=== PATIENT | female | born 1965 | race Caucasian/White ===

== ENCOUNTER 2017-08-20 10:11 | Emergency (ER) | payer MEDICAID, OTHER ==
[~2017-08-20] VITALS: Ht 172.7 cm; Wt 59.0 kg
[~2017-08-20 10:11] MED LIST changes: -CEPH250C37 PO
--- NOTE | 2017-08-20 11:04 | RADIOLOGY IMAGING REPORT ---
FACILITY: [facility] - [place], [place] PATIENT NAME: Cookie Kate : 1965 MR: [id number] V: [id number] EXAM DATE: ORDERING PHYSICIAN: JAKOB FULTON TECHNOLOGIST: Location: [facility] - [place] Patient: Cookie Kate : 1965 Visit/Account:[id number] Date of Sevice: 08/20/2017 Exam type: HAND COMPLETE RIGHT History: Right hand laceration, lateral palm Comparison: None. Findings: Bandaging material projects over the lateral aspect of the right palm. Otherwise no underlying radio paque soft tissue foreign body is seen. There is no evidence of acute fracture or dislocation involv ing the right hand. IMPRESSION: 1. No evidence of acute fracture-dislocation or radiopaque soft tissue foreign body involving the ri ght hand. Report Dictated By: Mandy Horn MD at 08/20/2017 10:58 AM Report E-Signed By: Mandy Horn MD at 08/20/2017 11:00 AM WSN:[id number]
[2017-08-20] MEDS ORDERED: CEPH250C37 PO (11:44)
--- NOTE | 2017-08-20 11:44 | ER Report ---
History and Physical Time Seen By MD: 10:05 Hx. of Stated Complaint: HAD BEER THIS AM, CUTTING POTATOES AND CUT RIGHT HAND. (JAKOB FULTON MD) HPI/ROS CHIEF COMPLAINT: Laceration left palm HISTORY OF PRESENT ILLNESS: 52-year-old female here for left palmar laceration, occurred just prior to arrival, patient reports she was cooking while drinking alcohol and is left-handed she immediately placed a rag over it and came in. Bleeding stopped prior to arrival. Denies motor deficits or sensation problems since the laceration. Denies other concerns or complaints today. This was not a purposeful self-inflicted injury REVIEW OF SYSTEMS: Respiratory: No cough, no dyspnea. Cardiovascular: No chest pain, no palpitations. Gastrointestinal: No vomiting, no abdominal pain. Musculoskeletal: No back pain. (JAKOB FULTON MD) Allergies: Coded Allergies: No Known Drug Allergies (Unverified , 08/20/17) Home Meds Active Scripts Cephalexin (KEFLEX) 250 Mg Capsule, 250 MG PO Q6H for 5 Days, #20 CAP Prov:JAKOB FULTON MD 08/20/17 Discontinued Reported Medications Olanzapine (ZYPREXA) 10 Mg Tablet, 10 MG PO QHS 07/16/17 Olanzapine (ZYPREXA) 5 Mg Tablet, 5 MG PO Q6H Y for AGITATION/PSYCHOSIS TAKE NEEDED EVERY SIX HOURS FOR AGITATION OR PSYCHOSIS 07/16/17 Nicotine (NICOTROL) 10 Mg/Inh Ctr, 10 MG INH Q2H 07/16/17 Multivits,Th W-Fe,Other Min (THEREMS-M) 1 Each Tablet, 1 EACH PO QDAY 07/16/17 Hx Smoking: Yes Smoking Status: Current: Every Day Smoker, Heavy Tobacco Smoker Exposure to Second Hand Smoke?: No Hx Substance Use Disorder: No Hx Alcohol Use: No (JAKOB FULTON MD) Constitutional Vital Sign - Last 24 Hours 08/20/17 08/20/17 10:12 12:23 Temp 98.3 Pulse 89 126 Resp 18 B/P (MAP) 129/85 113/81 (92) Pulse Ox 94 91 O2 Delivery Room Air Room Air (DEXTER GRAJEDA) Physical Exam General Appearance: The patient is alert, has no immediate need for airway protection and no signs of toxicity. Appears mildly intoxicated Eyes: Pupils equal and round no pallor or injection. ENT, Mouth: Mucous membranes are moist. Respiratory: There are no retractions, lungs are clear to auscultation. Cardiovascular: Regular rate and rhythm. No murmurs gallops or rubs Gastrointestinal: Abdomen is soft and non tender, no masses, bowel sounds normal. Neurological: Normal gross neuro exam, normal neuro exam right hand Skin: 5 cm laceration to right palm overlying the thenar eminence. Wound explored no foreign body identified. No bone visible. No tendon lacerations visible. No large nerve lacerations visible. Depth is approximately 0.5 cm Musculoskeletal: Neck is supple non tender. Extremities are nontender, nonswollen and have full range of motion. No edema DIFFERENTIAL DIAGNOSIS: After history and physical exam differential diagnosis was considered for laceration, foreign body (JAKOB FULTON MD) Medical Decision Making ED Course/Re-evaluation ED Course Local anesthesia 1% lidocaine with epinephrine 5 mL infiltrated locally into existing wound on right hand. Prior to irrigation and cleansing with Hibiclens by forestry aid technician Kirstie. Laceration repair by mid-level provider: Dexter Grajeda [see procedure note for details] Decision to Disposition Date: Aug 20, 2017 Decision to Disposition Time: 11:41 (JAKOB FULTON MD) Re-evaluation Procedure: Laceration repair. Verbal consent was obtained from the patient. The 5 cm laceration on the palmar aspect of the right hand was anesthetized in the usual fashion. The wound was scrubbed, draped and explored to its base with a gloved finger. There were no deep structures involved. No tendon injury was identified. The wound was repaired with 9 simple interrupted sutures using 4-0 Prolene. The wound repair was simple. The procedure was performed by myself. (DEXTER GRAJEDA) Depart Departure Latest Vital Signs Vital Signs Date Time Temp Pulse Resp B/P (MAP) Pulse Ox O2 Delivery O2 Flow Rate FiO2 08/20/17 12:23 126 113/81 (92) 91 Room Air 08/20/17 10:12 98.3 18 (DEXTER GRAJEDA) Impression: Primary Impression: Laceration of right palm Condition: Improved Disposition: HOME OR SELF-CARE New Scripts Cephalexin (KEFLEX) 250 Mg Capsule 250 MG PO Q6H for 5 Days, #20 CAP Prov: JAKOB FULTON MD 1/4/18 Patient Instructions: Laceration (ED) Additional Instructions: Keep wound dry for 48 hours. Follow up with your primary care provider in the next 7-10 days to have sutures removed. Monitor for signs of infection; redness, swelling, heat, discharge, increasing pain or red streaking. Take Tylenol or Ibuprofen as needed for pain. Return to the ER with any concerns. You may change dressing as needed. Problem Qualifiers Primary Impression: Laceration of right palm Encounter type: initial encounter Qualified Codes: S61.411A - Laceration without foreign body of right hand, initial encounter JAKOB FULTON MD Aug 20, 2017 11:44 DEXTER GRAJEDA Aug 20, 2017 12:14
[2017-08-20 12:23] VITALS: BP 113/81
== END 2017-08-20 12:26 | disposition home or self-care (01) ==
LOC: ER 10:19
DX: S61.411A Laceration without foreign body of right hand, initial encounter (principal)
CPT/HCPCS: 99283

== ENCOUNTER → 2017-08-20 | Outpatient (CLI) | payer MEDICAID ==
[~2017-08-20] MED LIST: CEPH250C37 PO; MULT-859 PO; NIC10R INH; OLAN10TA21 PO; OLAN5TAB25 PO; [UNRECOGNIZED DRUG - CODE] PO
== END ==
LOC: AMB 09:52
PROVIDERS: ATTEND Nurse Practitioner
DX: S61.011A Laceration without foreign body of right thumb without damage to nail, initial encounter (principal); R44.0 Auditory hallucinations
CPT/HCPCS: A0425; A0429

== ENCOUNTER 2017-09-12 12:47 | Emergency (ER) | payer MEDICAID ==
[~2017-09-12] VITALS: Ht 172.7 cm; Wt 59.0 kg
--- NOTE | 2017-09-12 13:21 | ER Report ---
History and Physical Time Seen By MD: 13:00 Hx. of Stated Complaint: "THE LEFT SIDE OF MY BRAIN IS NOT WORKING" HPI/ROS CHIEF COMPLAINT: Left-sided brain shutdown HISTORY OF PRESENT ILLNESS: Patient is a 52-year-old female who presents to ED via ambulance with concern of left side of her brain being shutdown. Patient states that she has noted a left-sided headache and feels strange in her left brain. She denies any weakness, numbness, tingling, vision changes, nausea, vomiting, head injury. She states that she was under psychiatric care for the past 15 years in [place], [place]. She states that during this time she was prescribed "over the legal limit of medication" and believes this caused "brain damage". She states that she does hear voices but states that she has no suicidal or homicidal ideations. She denies any visual hallucinations. Patient states that she is trying to get back to [place] but is currently staying in a hotel here in [place], [place]. She denies any drug or alcohol use except for the use of marijuana which she didn't use today. She states that she uses daily. She does not like to take any other medications. She denies any chest pain or shortness of breath. She has not noted any neck pain or fever. She states that " Trump and Obama have let her down". REVIEW OF SYSTEMS: Constitutional: No fever, no chills. Eyes: No discharge. ENT: No sore throat. Cardiovascular: No chest pain, no palpitations. Respiratory: No cough, no shortness of breath. Gastrointestinal: No abdominal pain, no vomiting. Genitourinary: No hematuria. Musculoskeletal: No back pain. Skin: No rashes. Neurological: See history of present illness. Allergies: Coded Allergies: No Known Drug Allergies (Unverified , 09/12/17) Home Meds Discontinued Scripts Cephalexin (KEFLEX) 250 Mg Capsule, 250 MG PO Q6H for 5 Days, #20 CAP Prov:JAKOB FULTON MD 08/20/17 Reviewed Nurses Notes: Yes Old Medical Records Reviewed: Yes Hx Smoking: Yes Smoking Status: Current: Every Day Smoker, Heavy Tobacco Smoker Exposure to Second Hand Smoke?: No Hx Substance Use Disorder: No Hx Alcohol Use: No Constitutional Vital Sign - Last 24 Hours 09/12/17 12:54 Temp 97.5 Pulse 96 Resp 18 B/P (MAP) 143/97 Pulse Ox 97 O2 Delivery Room Air Physical Exam General Appearance: The patient is alert, has no immediate need for airway protection and no signs of toxicity. Patient appears to be in no acute distress. She does appear to be slightly anxious. She does have a disheveled appearance. Eyes: Pupils equal and round no pallor or injection. EOMs are full bilaterally. ENT, Mouth: Mucous membranes are moist. Respiratory: There are no retractions, lungs are clear to auscultation. Cardiovascular: Regular rate and rhythm. Gastrointestinal: Abdomen is soft and non tender, no masses, bowel sounds normal. Neurological: Cranial nerves II-12 intact. Normal Romberg. Normal finger to nose test bilaterally. Skin: Warm and dry, no rashes. Musculoskeletal: Neck is supple non tender. Extremities are nontender, nonswollen and have full range of motion. DIFFERENTIAL DIAGNOSIS: After history and physical exam differential diagnosis was considered for headache including but not limited to subarachnoid hemorrhage , migraine headache, tension headache and infectious causes such as meningitis, pharyngitis and sinusitis. Medical Decision Making Data Points Result Diagram: 09/12/17 1333 09/12/17 1333 Laboratory Hematology Test 09/12/17 13:27 09/12/17 13:33 Urine Color Elly Urine Clarity Cloudy Urine pH 6.0 pH (4.8-9.5) Urine Specific [place] 1.023 Urine Protein Negative mg/dL (NEGATIVE) Urine Glucose (UA) Negative mg/dL (NEGATIVE) Urine Ketones Trace mg/dL (NEGATIVE) Urine Blood Negative (NEGATIVE) Urine Nitrite Negative (NEGATIVE) Urine Bilirubin Negative (NEGATIVE) Urine Urobilinogen 2.0 mg/dL (0.2-1.9) Urine Leukocyte Esterase Negative (NEGATIVE) Urine RBC None /HPF (0-2/HPF) Urine WBC 1 /HPF (0-5/HPF) Urine Squamous Epithelial Cells Many /LPF (</=FEW) Urine Amorphous Crystals Few /HPF Urine Bacteria Few /HPF (NONE-FEW) Urine Mucus Few /HPF (NONE-FEW) Urine HCG, Qualitative Negative (NEGATIVE) Urine Opiates Screen Negative Urine Barbiturates Screen Negative Ur Tricyclic Antidepressants Screen Negative Urine Phencyclidine Screen Negative Urine Amphetamines Screen Negative Urine Benzodiazepines Screen Negative Urine Cocaine Screen Negative Urine Cannabinoids Screen Positive Red Blood Count 5.44 M/uL (4.17-5.56) Mean Corpuscular Volume 90.5 fL (80.0-96.0) Mean Corpuscular Hemoglobin 30.1 pg (26.0-33.0) Mean Corpuscular Hemoglobin Concent 33.3 g/dL (32.0-36.0) Red Cell Distribution Width 14.0 % (11.5-14.5) Mean Platelet Volume 9.6 fL (7.2-11.1) Neutrophils (%) (Auto) 49.6 % (39.4-72.5) Lymphocytes (%) (Auto) 40.0 % (17.6-49.6) Monocytes (%) (Auto) 8.0 % (4.1-12.4) Eosinophils (%) (Auto) 0.8 % (0.4-6.7) Basophils (%) (Auto) 1.6 % (0.3-1.4) Nucleated RBC Relative Count (auto) 0.1 /100WBC Neutrophils # (Auto) 3.5 K/uL (2.0-7.4) Lymphocytes # (Auto) 2.8 K/uL (1.3-3.6) Monocytes # (Auto) 0.6 K/uL (0.3-1.0) Eosinophils # (Auto) 0.1 K/uL (0.0-0.5) Basophils # (Auto) 0.1 K/uL (0.0-0.1) Nucleated RBC Absolute Count (auto) 0.00 K/uL Sodium Level 140 mmol/L (137-145) Potassium Level 4.0 mmol/L (3.5-5.0) Chloride Level 103 mmol/L (98-107) Carbon Dioxide Level 27 mmol/L (22-31) Blood Urea Nitrogen 12 mg/dl (7-18) Creatinine 0.70 mg/dl (0.52-1.04) Glomerular Filtration Rate Calc > 60.0 Random Glucose 103 mg/dl (75-110) Calcium Level 9.9 mg/dl (8.4-10.2) Magnesium Level 1.9 mg/dl (1.7-2.2) Total Bilirubin 0.6 mg/dl (0.2-1.3) Aspartate Amino Transf (AST/SGOT) 54 U/L (0-35) Alanine Aminotransferase (ALT/SGPT) 51 U/L (0-56) Alkaline Phosphatase 75 U/L (0-126) Total Protein 7.7 gm/dl (6.3-8.2) Albumin 4.3 g/dl (3.5-5.0) Salicylates Level < 10 mg/L Salicylate Last Dose Date unknown Acetaminophen Level < 10 ug/ml Serum Alcohol < 10 mg/dl Chemistry Test 09/12/17 13:27 09/12/17 13:33 Urine Color Elly Urine Clarity Cloudy Urine pH 6.0 pH (4.8-9.5) Urine Specific [place] 1.023 Urine Protein Negative mg/dL (NEGATIVE) Urine Glucose (UA) Negative mg/dL (NEGATIVE) Urine Ketones Trace mg/dL (NEGATIVE) Urine Blood Negative (NEGATIVE) Urine Nitrite Negative (NEGATIVE) Urine Bilirubin Negative (NEGATIVE) Urine Urobilinogen 2.0 mg/dL (0.2-1.9) Urine Leukocyte Esterase Negative (NEGATIVE) Urine RBC None /HPF (0-2/HPF) Urine WBC 1 /HPF (0-5/HPF) Urine Squamous Epithelial Cells Many /LPF (</=FEW) Urine Amorphous Crystals Few /HPF Urine Bacteria Few /HPF (NONE-FEW) Urine Mucus Few /HPF (NONE-FEW) Urine HCG, Qualitative Negative (NEGATIVE) Urine Opiates Screen Negative Urine Barbiturates Screen Negative Ur Tricyclic Antidepressants Screen Negative Urine Phencyclidine Screen Negative Urine Amphetamines Screen Negative Urine Benzodiazepines Screen Negative Urine Cocaine Screen Negative Urine Cannabinoids Screen Positive White Blood Count 7.0 k/uL (4.5-11.0) Red Blood Count 5.44 M/uL (4.17-5.56) Hemoglobin 16.4 g/dL (12.0-16.0) Hematocrit 49.2 % (34.0-47.0) Mean Corpuscular Volume 90.5 fL (80.0-96.0) Mean Corpuscular Hemoglobin 30.1 pg (26.0-33.0) Mean Corpuscular Hemoglobin Concent 33.3 g/dL (32.0-36.0) Red Cell Distribution Width 14.0 % (11.5-14.5) Platelet Count 285 K/uL (150-450) Mean Platelet Volume 9.6 fL (7.2-11.1) Neutrophils (%) (Auto) 49.6 % (39.4-72.5) Lymphocytes (%) (Auto) 40.0 % (17.6-49.6) Monocytes (%) (Auto) 8.0 % (4.1-12.4) Eosinophils (%) (Auto) 0.8 % (0.4-6.7) Basophils (%) (Auto) 1.6 % (0.3-1.4) Nucleated RBC Relative Count (auto) 0.1 /100WBC Neutrophils # (Auto) 3.5 K/uL (2.0-7.4) Lymphocytes # (Auto) 2.8 K/uL (1.3-3.6) Monocytes # (Auto) 0.6 K/uL (0.3-1.0) Eosinophils # (Auto) 0.1 K/uL (0.0-0.5) Basophils # (Auto) 0.1 K/uL (0.0-0.1) Nucleated RBC Absolute Count (auto) 0.00 K/uL Glomerular Filtration Rate Calc > 60.0 Calcium Level 9.9 mg/dl (8.4-10.2) Magnesium Level 1.9 mg/dl (1.7-2.2) Total Bilirubin 0.6 mg/dl (0.2-1.3) Aspartate Amino Transf (AST/SGOT) 54 U/L (0-35) Alanine Aminotransferase (ALT/SGPT) 51 U/L (0-56) Alkaline Phosphatase 75 U/L (0-126) Total Protein 7.7 gm/dl (6.3-8.2) Albumin 4.3 g/dl (3.5-5.0) Salicylates Level < 10 mg/L Salicylate Last Dose Date unknown Acetaminophen Level < 10 ug/ml Serum Alcohol < 10 mg/dl Toxicology Test 09/12/17 13:27 09/12/17 13:33 Urine Opiates Screen Negative Urine Barbiturates Screen Negative Ur Tricyclic Antidepressants Screen Negative Urine Phencyclidine Screen Negative Urine Amphetamines Screen Negative Urine Benzodiazepines Screen Negative Urine Cocaine Screen Negative Urine Cannabinoids Screen Positive Salicylates Level < 10 mg/L Salicylate Last Dose Date unknown Acetaminophen Level < 10 ug/ml Serum Alcohol < 10 mg/dl Urinalysis Test 09/12/17 13:27 Urine Color Elly Urine Clarity Cloudy Urine pH 6.0 pH (4.8-9.5) Urine Specific [place] 1.023 Urine Protein Negative mg/dL (NEGATIVE) Urine Glucose (UA) Negative mg/dL (NEGATIVE) Urine Ketones Trace mg/dL (NEGATIVE) Urine Blood Negative (NEGATIVE) Urine Nitrite Negative (NEGATIVE) Urine Bilirubin Negative (NEGATIVE) Urine Urobilinogen 2.0 mg/dL (0.2-1.9) Urine Leukocyte Esterase Negative (NEGATIVE) Urine RBC None /HPF (0-2/HPF) Urine WBC 1 /HPF (0-5/HPF) Urine Squamous Epithelial Cells Many /LPF (</=FEW) Urine Amorphous Crystals Few /HPF Urine Bacteria Few /HPF (NONE-FEW) Urine Mucus Few /HPF (NONE-FEW) Urine HCG, Qualitative Negative (NEGATIVE) EKG/Imaging Imaging CT Head: IMPRESSION: Negative age-appropriate noncontrast head CT. Report Dictated By: James Amador MD at 09/12/2017 2:10 PM Report E-Signed By: James Amador MD at 09/12/2017 2:15 PM ED Course/Re-evaluation ED Course Will obtain labs and CT head of patient. Given her medical history and current complaints and exam it is likely that the patient has some untreated schizophrenia. She is refusing treatment at this time. However, she is denying any suicidal or homicidal ideation and does not appear to be a threat to herself or anyone else at this time. 09/12/2017 2:28:29 pm - discussed all labs and CT imaging with patient. Everything appears to be essentially normal. Advised to follow-up with her psychiatrist and primary care provider. Decision to Disposition Date: Sep 12, 2017 Decision to Disposition Time: 14:28 Depart Departure Latest Vital Signs Vital Signs Date Time Temp Pulse Resp B/P (MAP) Pulse Ox O2 Delivery O2 Flow Rate FiO2 09/12/17 12:54 97.5 96 18 143/97 97 Room Air Impression: Primary Impression: Delusional disorder, persecutory type, continuous Condition: Improved Disposition: HOME OR SELF-CARE New Scripts No Active Prescriptions or Reported Meds Additional Instructions: Follow-up with her primary care provider and psychiatrist in the next 2-3 days. If having worsening or concerning symptoms may return to the emergency department. GURJIT BAEZ PA-C Sep 12, 2017 13:21
[2017-09-12 13:42] LABS: PLATELET COUNT, AUTOMATED 285 K/uL (150-450)
--- NOTE | 2017-09-12 14:19 | RADIOLOGY IMAGING REPORT ---
FACILITY: [facility] - [place] PATIENT NAME: Cookie Kate : 1965 MR: [id number] V: [id number] EXAM DATE: ORDERING PHYSICIAN: GURJIT BAEZ TECHNOLOGIST: Location: [facility] Patient: Cookie Kate : 1965 Visit/Account:[id number] Date of Sevice: 09/12/2017 EXAMINATION: CT HEAD WITHOUT CONTRAST COMPARISON: None available HISTORY: Left-sided headache. Confusion. PROCEDURE: Noncontrast CT from the vertex through the skull base. One of the following dose optimizat ion techniques was utilized in the performance of this exam: Automated exposure control; adjustment o f the mA and/or kV according to the patient's size; or use of an iterative reconstruction technique. Specific details can be referenced in the facility's radiology CT exam operational policy. FINDINGS: Brain volume: Age-appropriate volume. Hemorrhage/extra-axial fluid: No intracranial hemorrhage or extra-axial fluid collection. Mass effect/midline shift/edema: None. Ischemia: Shafer-white differentiation is preserved. Ventricles and basal cisterns: Ventricle size is within normal limits. Basal cisterns are open. Posterior fossa: Negative. Vessels: Negative. Calvarium, skull base, and scalp: Negative. Visualized sinuses and orbits: Visualized paranasal sinuses are clear. Visualized globes are unremark able. IMPRESSION: Negative age-appropriate noncontrast head CT. Report Dictated By: James Amador MD at 09/12/2017 2:10 PM Report E-Signed By: James Amador MD at 09/12/2017 2:15 PM WSN:[id number]
[2017-09-12 14:39] VITALS: BP 121/94
== END 2017-09-12 14:43 | disposition home or self-care (01) ==
LOC: ER 12:57
DX: F22 Delusional disorders (principal); F17.200 Nicotine dependence, unspecified, uncomplicated; R51 Headache
CPT/HCPCS: 36415; 70450; 80305; 81001; 81025; 83735; 84443; 85025; 99283; G0480; 80320; 80329; 82040; 82247; 82310; 82374; 82435; 82565; 82947; 84075; 84132; 84155; 84295; 84450; 84460; 84520

== ENCOUNTER → 2017-09-12 | Outpatient (CLI) | payer MEDICAID ==
[~2017-09-12] MED LIST changes: +CEPH250C37 PO
== END ==
LOC: AMB 12:40
PROVIDERS: ATTEND Nurse Practitioner
DX: F41.9 Anxiety disorder, unspecified (principal)
CPT/HCPCS: A0425; A0429

== ENCOUNTER 2017-10-15 20:18 | Emergency (ER) | payer MEDICAID ==
[~2017-10-15] VITALS: Ht 172.7 cm; Wt 63.5 kg
[2017-10-15 20:20] VITALS: BP 132/119
--- NOTE | 2017-10-15 20:22 | ER Report ---
History and Physical Time Seen By MD: 20:21 HPI/ROS CHIEF COMPLAINT: Altered mental status HISTORY OF PRESENT ILLNESS: 52-year-old female brought in by police after she called 911 multiple times this evening. She is going on ranting about the trunk administration is responsible for numerous things. He has a 4-5 page double-sided let her ranting on about the trunk administration and all the things that he's cause. Patient's rambling on about technology. She is very tangential. She was brought in by police and placed on an emergency long term for acute schizophrenia/psychosis/ravi. Her boyfriend called police after they responded multiple times earlier for her 911 calls. She was given a warning not to call. She had a specific problem. The boyfriend reports that she has a plan to commit suicide by hanging herself. Patient's also going on, that there is a metal implant in her head. 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 Patient denies medications, alcohol ingestion or substance abuse. Patient has self-inflicted cigarette marks on her left forearm REVIEW OF SYSTEMS: Respiratory: No cough, no dyspnea. Cardiovascular: No chest pain, no palpitations. Gastrointestinal: No vomiting, no abdominal pain. Musculoskeletal: No back pain. Allergies: Coded Allergies: No Known Drug Allergies (Unverified , 09/12/17) Home Meds No Active Prescriptions or Reported Meds Reviewed Nurses Notes: Yes Old Medical Records Reviewed: Yes Hx Smoking: Yes Smoking Status: Current: Every Day Smoker, Heavy Tobacco Smoker Exposure to Second Hand Smoke?: No Hx Substance Use Disorder: No Hx Alcohol Use: No Constitutional Vital Sign - Last 24 Hours 10/15/17 20:20 Temp 97.9 Pulse 93 Resp 24 B/P (MAP) 132/119 Pulse Ox 96 O2 Delivery Room Air Physical Exam General Appearance: The patient is alert, has no immediate need for airway protection and no current signs of toxicity. Vital signs stable, afebrile, rambling nonsensical tangential verbal expressions and appropriate HEENT: Pupils equal and round no injection. TMs normal, oropharynx with mild erythema, no exudate Respiratory: Chest is non tender, lungs are clear to auscultation. Cardiac: regular rate and rhythm Gastrointestinal: Abdomen is soft and non tender, no masses, bowel sounds normal. Musculoskeletal: Neck: Neck is supple and non tender. No thyromegaly, no lymphadenopathy, no meningismus Extremities have full range of motion and are non tender. Left forearm has approximately 12-15 scabbed over healing cigarette marks about evidence of secondary infection Skin: No rashes or lesions. DIFFERENTIAL DIAGNOSIS: After history and physical exam differential diagnosis was considered for depression including functional and major depression, situational depression, acute psychosis, suicidal ideation, medication side effect, drugs and alcohol abuse. Date of Report: Oct 15, 2017 Examiner: Dr. Juancarlos Gould Patient Detained By: Law Enforcement 24hr Mental Health Eval By: Dr. Juancarlos Gould Date Patient Detained: Oct 15, 2017 Time Patient Detained: 20: Date Prison Expires: Oct 20, 2017 Time Prison Expires: : Legal Status: Relationship: Single Legal Status: Residence: [facility] Resident, State Resident Chief Complaint: Suicidal ideation, acute schizophrenia/manic phase HPI/ROS: 52-year-old female brought in by police, placed on emergency long term for cute psychosis. Patient was expressing suicidal ideation to her boyfriend. She had plans to hang herself to commit suicide. She has multiple self-inflicted marks on her left arm. Patient has no connection with reality. When asking her about different symptoms. She rambles on tangentially about how the government and [employer] have ruined the world. She states that there is a electronic implant in her head. It's telling her to masturbate and perform as a or and prostitute. Emergency Medical/Psych Tx: Patient was evaluated in the emergency department. She was medicated acutely with Zyprexa 10 mg, Ativan 2 mg and Benadryl 50 mg by mouth. Diagnostic evaluation shows a tox screen with positive amphetamines. Her blood alcohol level is very low Current Dangerous Risk Assess: Current Suicide Ideation, Self-Injurious Behaviors Current Risk Summary: Patient has no connection with reality. She is very high risk for injuring herself. She's been burning her left arm with cigarettes. I think she is a high risk and the long term will be upheld. Past Dangerous Risk Assess: Suicide Ideation-last 6mo Medical Decision Making Data Points Result Diagram: 10/15/17204210/15/172041 Laboratory Hematology Test 10/15/17 20:42 10/15/17 20:43 Sodium Level 139 mmol/L (137-145) Potassium Level 3.8 mmol/L (3.5-5.0) Chloride Level 105 mmol/L (98-107) Carbon Dioxide Level 21 mmol/L (22-31) Blood Urea Nitrogen 12 mg/dl (7-18) Creatinine 0.80 mg/dl (0.52-1.04) Glomerular Filtration Rate Calc > 60.0 Random Glucose 83 mg/dl (75-110) Calcium Level 9.7 mg/dl (8.4-10.2) Magnesium Level 1.9 mg/dl (1.7-2.2) Total Bilirubin 0.6 mg/dl (0.2-1.3) Aspartate Amino Transf (AST/SGOT) 52 U/L (0-35) Alanine Aminotransferase (ALT/SGPT) 52 U/L (0-56) Alkaline Phosphatase 83 U/L (0-126) Total Protein 8.1 gm/dl (6.3-8.2) Albumin 4.6 g/dl (3.5-5.0) Human Chorionic Gonadotropin, Qual Negative (NEGATIVE) Salicylates Level < 10 mg/L Salicylate Last Dose Date unk Acetaminophen Level < 10 ug/ml Serum Alcohol 12 mg/dl Red Blood Count 5.31 M/uL (4.17-5.56) Mean Corpuscular Volume 88.8 fL (80.0-96.0) Mean Corpuscular Hemoglobin 30.5 pg (26.0-33.0) Mean Corpuscular Hemoglobin Concent 34.3 g/dL (32.0-36.0) Red Cell Distribution Width 13.2 % (11.5-14.5) Mean Platelet Volume 10.1 fL (7.2-11.1) Neutrophils (%) (Auto) 64.9 % (39.4-72.5) Lymphocytes (%) (Auto) 24.8 % (17.6-49.6) Monocytes (%) (Auto) 8.6 % (4.1-12.4) Eosinophils (%) (Auto) 0.4 % (0.4-6.7) Basophils (%) (Auto) 1.3 % (0.3-1.4) Nucleated RBC Relative Count (auto) 0.0 /100WBC Neutrophils # (Auto) 6.2 K/uL (2.0-7.4) Lymphocytes # (Auto) 2.4 K/uL (1.3-3.6) Monocytes # (Auto) 0.8 K/uL (0.3-1.0) Eosinophils # (Auto) 0.0 K/uL (0.0-0.5) Basophils # (Auto) 0.1 K/uL (0.0-0.1) Nucleated RBC Absolute Count (auto) 0.00 K/uL Urine Color Yellow Urine Clarity Slightly-cloudy Urine pH 5.0 pH (4.8-9.5) Urine Specific [place] 1.021 Urine Protein Negative mg/dL (NEGATIVE) Urine Glucose (UA) Negative mg/dL (NEGATIVE) Urine Ketones Trace mg/dL (NEGATIVE) Urine Blood Negative (NEGATIVE) Urine Nitrite Negative (NEGATIVE) Urine Bilirubin Negative (NEGATIVE) Urine Urobilinogen 2.0 mg/dL (0.2-1.9) Urine Leukocyte Esterase Negative (NEGATIVE) Urine RBC <1 /HPF (0-2/HPF) Urine WBC 2 /HPF (0-5/HPF) Urine Squamous Epithelial Cells Many /LPF (</=FEW) Urine Renal Epithelial Cells Few /LPF (NONE-FEW) Urine Bacteria Negative /HPF (NONE-FEW) Urine Hyaline Casts Few /LPF (NONE-FEW) Urine Mucus Few /HPF (NONE-FEW) Urine Opiates Screen Negative Urine Barbiturates Screen Negative Ur Tricyclic Antidepressants Screen Negative Urine Phencyclidine Screen Negative Urine Amphetamines Screen Positive Urine Benzodiazepines Screen Negative Urine Cocaine Screen Negative Urine Cannabinoids Screen Negative Chemistry Test 10/15/17 20:42 10/15/17 20:43 Glomerular Filtration Rate Calc > 60.0 Calcium Level 9.7 mg/dl (8.4-10.2) Magnesium Level 1.9 mg/dl (1.7-2.2) Total Bilirubin 0.6 mg/dl (0.2-1.3) Aspartate Amino Transf (AST/SGOT) 52 U/L (0-35) Alanine Aminotransferase (ALT/SGPT) 52 U/L (0-56) Alkaline Phosphatase 83 U/L (0-126) Total Protein 8.1 gm/dl (6.3-8.2) Albumin 4.6 g/dl (3.5-5.0) Human Chorionic Gonadotropin, Qual Negative (NEGATIVE) Salicylates Level < 10 mg/L Salicylate Last Dose Date unk Acetaminophen Level < 10 ug/ml Serum Alcohol 12 mg/dl White Blood Count 9.6 k/uL (4.5-11.0) Red Blood Count 5.31 M/uL (4.17-5.56) Hemoglobin 16.2 g/dL (12.0-16.0) Hematocrit 47.2 % (34.0-47.0) Mean Corpuscular Volume 88.8 fL (80.0-96.0) Mean Corpuscular Hemoglobin 30.5 pg (26.0-33.0) Mean Corpuscular Hemoglobin Concent 34.3 g/dL (32.0-36.0) Red Cell Distribution Width 13.2 % (11.5-14.5) Platelet Count 262 K/uL (150-450) Mean Platelet Volume 10.1 fL (7.2-11.1) Neutrophils (%) (Auto) 64.9 % (39.4-72.5) Lymphocytes (%) (Auto) 24.8 % (17.6-49.6) Monocytes (%) (Auto) 8.6 % (4.1-12.4) Eosinophils (%) (Auto) 0.4 % (0.4-6.7) Basophils (%) (Auto) 1.3 % (0.3-1.4) Nucleated RBC Relative Count (auto) 0.0 /100WBC Neutrophils # (Auto) 6.2 K/uL (2.0-7.4) Lymphocytes # (Auto) 2.4 K/uL (1.3-3.6) Monocytes # (Auto) 0.8 K/uL (0.3-1.0) Eosinophils # (Auto) 0.0 K/uL (0.0-0.5) Basophils # (Auto) 0.1 K/uL (0.0-0.1) Nucleated RBC Absolute Count (auto) 0.00 K/uL Urine Color Yellow Urine Clarity Slightly-cloudy Urine pH 5.0 pH (4.8-9.5) Urine Specific [place] 1.021 Urine Protein Negative mg/dL (NEGATIVE) Urine Glucose (UA) Negative mg/dL (NEGATIVE) Urine Ketones Trace mg/dL (NEGATIVE) Urine Blood Negative (NEGATIVE) Urine Nitrite Negative (NEGATIVE) Urine Bilirubin Negative (NEGATIVE) Urine Urobilinogen 2.0 mg/dL (0.2-1.9) Urine Leukocyte Esterase Negative (NEGATIVE) Urine RBC <1 /HPF (0-2/HPF) Urine WBC 2 /HPF (0-5/HPF) Urine Squamous Epithelial Cells Many /LPF (</=FEW) Urine Renal Epithelial Cells Few /LPF (NONE-FEW) Urine Bacteria Negative /HPF (NONE-FEW) Urine Hyaline Casts Few /LPF (NONE-FEW) Urine Mucus Few /HPF (NONE-FEW) Urine Opiates Screen Negative Urine Barbiturates Screen Negative Ur Tricyclic Antidepressants Screen Negative Urine Phencyclidine Screen Negative Urine Amphetamines Screen Positive Urine Benzodiazepines Screen Negative Urine Cocaine Screen Negative Urine Cannabinoids Screen Negative Toxicology Test 10/15/17 20:42 10/15/17 20:43 Salicylates Level < 10 mg/L Salicylate Last Dose Date unk Acetaminophen Level < 10 ug/ml Serum Alcohol 12 mg/dl Urine Opiates Screen Negative Urine Barbiturates Screen Negative Ur Tricyclic Antidepressants Screen Negative Urine Phencyclidine Screen Negative Urine Amphetamines Screen Positive Urine Benzodiazepines Screen Negative Urine Cocaine Screen Negative Urine Cannabinoids Screen Negative Urinalysis Test 10/15/17 20:43 Urine Color Yellow Urine Clarity Slightly-cloudy Urine pH 5.0 pH (4.8-9.5) Urine Specific [place] 1.021 Urine Protein Negative mg/dL (NEGATIVE) Urine Glucose (UA) Negative mg/dL (NEGATIVE) Urine Ketones Trace mg/dL (NEGATIVE) Urine Blood Negative (NEGATIVE) Urine Nitrite Negative (NEGATIVE) Urine Bilirubin Negative (NEGATIVE) Urine Urobilinogen 2.0 mg/dL (0.2-1.9) Urine Leukocyte Esterase Negative (NEGATIVE) Urine RBC <1 /HPF (0-2/HPF) Urine WBC 2 /HPF (0-5/HPF) Urine Squamous Epithelial Cells Many /LPF (</=FEW) Urine Renal Epithelial Cells Few /LPF (NONE-FEW) Urine Bacteria Negative /HPF (NONE-FEW) Urine Hyaline Casts Few /LPF (NONE-FEW) Urine Mucus Few /HPF (NONE-FEW) ED Course/Re-evaluation ED Course Patient was admitted to an examination room. H&P was done. The differential diagnosis was considered. On clinical examination. Patient has acute psychosis. Her tox screen is positive for amphetamines. She has a history of bipolar and ravi. She appears manic. She may also be having adverse effects of amphetamines. Patient had diagnostic evaluation performed. Her blood alcohol level was very low. Patient was medicated with Ativan 2 mg, Zyprexa 10 mg and Benadryl 50 mg by mouth. She was admitted to behavioral health for long term was upheld. 10/15/2017 9:27:12 pm case discussed with Norma Prado nurse practitioner a behavioral health service. Decision to Disposition Date: Oct 15, 2017 Decision to Disposition Time: 21:26 Depart Departure Latest Vital Signs Vital Signs Date Time Temp Pulse Resp B/P (MAP) Pulse Ox O2 Delivery O2 Flow Rate FiO2 10/15/17 20:20 97.9 93 24 132/119 96 Room Air Impression: Primary Impression: Delusional disorder, persecutory type, continuous Additional Impressions: Bipolar 1 disorder with moderate ravi Amphetamine abuse Second degree burn of left arm Condition: Improved Disposition: XFER TO [facility] New Scripts No Active Prescriptions or Reported Meds Problem Qualifiers Additional Impressions: Second degree burn of left arm Encounter type: initial encounter Upper extremity location: forearm Qualified Codes: T22.212A - Burn of second degree of left forearm, initial encounter JUANCARLOS GOULD DO Oct 15, 2017 20:22
[2017-10-15 20:56] LABS: PLATELET COUNT, AUTOMATED 262 K/uL (150-450)
[2017-10-15] MEDS ORDERED: OLANZapine ZYDIS ODT 5MG TABDP PO ONE (21:00)
[2017-10-15] MEDS ORDERED: diphenhydrAMINE 25 MG CAP PO ONE (21:00)
[2017-10-15] MEDS ORDERED: LORazepam 1 MG TAB PO ONE (21:00)
== END 2017-10-15 22:10 ==
LOC: ER 20:30
DX: F22 Delusional disorders (principal); F31.9 Bipolar disorder, unspecified; F15.10 Other stimulant abuse, uncomplicated; T22.212A Burn of second degree of left forearm, initial encounter; F17.210 Nicotine dependence, cigarettes, uncomplicated
CPT/HCPCS: 36415; 80305; 81001; 83735; 84443; 84703; 85025; 99285; G0480; Q0163; 80320; 80329; 82040; 82247; 82310; 82374; 82435; 82565; 82947; 84075; 84132; 84155; 84295; 84450; 84460; 84520

== ENCOUNTER 2017-10-15 21:47 | Inpatient (IN) | payer MEDICAID ==
[~2017-10-15] VITALS: Ht 177.8 cm; Wt 63.5 kg
[2017-10-15 22:24] VITALS: BP 128/78
[2017-10-15] MEDS ORDERED: MAG HYD/AL HYD/SIMETH 30ML UDC PO PRN (22:50)
[2017-10-15] MEDS ORDERED: diphenhydrAMINE 50 MG/ML VIAL IM PRN (22:50)
[2017-10-15] MEDS ORDERED: OLANZapine 5 MG TAB PO PRN ×2 (22:50→22:55)
[2017-10-15] MEDS ORDERED: ACETAMINOPHEN 325 MG TAB PO PRN (22:50)
[2017-10-15] MEDS ORDERED: LORazepam 2 MG/ML VIAL IM PRN (22:50)
[2017-10-15] MEDS ORDERED: OLANZapine 10 MG VIAL IM ONLY PRN (22:50)
[2017-10-16 06:15] VITALS: BP 112/64
[2017-10-16] MEDS: MULTIVITAMINS PO SCH (08:21)
[2017-10-16 12:55] VITALS: BP 108/62
[2017-10-16] MEDS: OLANZapine 5 MG TAB PO PRN (13:34)
[2017-10-16 18:41] VITALS: BP 104/72
--- NOTE | 2017-10-16 18:52 | HISTORY AND PHYSICAL ---
DATE OF ADMISSION: October 15, 2017 This patient was seen at approximately 1100 hours on 16 October 2017 for this interview. PRESENTING PROBLEM AND CHIEF COMPLAINT State of psychosis and delusional behavior. HISTORY OF PRESENT ILLNESS This is a 52-year-old female who was most recently on the Behavioral Health Unit in late June 2017 under similar circumstances of increasing delusional behavior. The patient presents to the Emergency Room seemingly delusional and mildly agitated. The patient was admitted without incident. The patient is held under an emergency detainment for psychotic behavior. Upon initial interview, the patient is very difficult to follow. The patient is rambling about the Trump administration and having incestuous relationships. The patient is again very difficult to follow. The patient is admitting to using methamphetamine recently which may have triggered underlying delusional content to a higher level prior to admission. The patient was not aggressive towards staff, but was very frustrated. The rest of the interview was terminated. Please see H and P from June 2017 for similar delusional-type content upon admission. MENTAL HEALTH HISTORY The patient is believed to have been hospitalized in the past. Again, we will await records as I am unable to effectively interview the patient for history. The patient historically was treated at [facility] and treated with clonazepam and Zyprexa. Clonazepam has been stopped. It is doubtful whether the patient has been taking any Zyprexa. FAMILY PSYCHIATRIC HISTORY We will continue to await records. PAST MEDICAL HISTORY The patient may have been diagnosed with hepatitis C in the past. We will continue to search for records. SOCIAL HISTORY Little is known about the patient's social history. The patient is unable to effectively communicate. She reports coming to [place] most recently from [place]. The patient is not believed to be working and is on disability for chronic, persisting mental illness. LEGAL HISTORY Unknown, although it is known that the patient discharged into the custody of police on last admission here as she had been on a police hold. SUBSTANCE ABUSE HISTORY The patient has reported heroin use for many years in her remote history. The patient on last admission was using cannabis. On this admission, the patient admits to methamphetamine use. PHYSICAL EXAMINATION Please see emergency room note. Notable for: GENERAL: Agitated, 52-year-old female with notable contusion around left orbit. The patient apparently self-inflicted bruising to eye. VITAL SIGNS: Temperature 97.9, pulse 93, respiratory rate 24, blood pressure 132/119 with a pulse oximetry of 96% on room air upon admission. LABORATORY DATA CBC notable for hemoglobin elevated at 16.2, hematocrit 47.2 and elevated. CMP notable for AST elevated at 52. TSH 1.05. screen negative. Urinalysis overall unremarkable. Trace ketones and urobilinogen were present. Toxicology screen positive for amphetamines. The patient admits to using a form of methamphetamine, smoking. Negative for other drugs of abuse. Serum alcohol level is noted to be 12 at time of admission. MENTAL STATUS EXAMINATION GENERAL APPEARANCE, BEHAVIOR, AND ATTITUDE: This is a disheveled, thin, 52-year -old female with widely fluctuating affect. The patient is making good eye contact with certain members of the treatment team staff throughout her interview. Psychomotor agitation ongoing. The patient is very difficult to follow. SPEECH: Rapid, accelerated. MOOD: She appeared frustrated and angry. AFFECT: Highly variable. THOUGHT PROCESSES: Loose associations and flight of ideas present. THOUGHT CONTENT: Unable to determine if auditory or visual hallucinations existed; however, evidence of the patient responding to internal stimuli during interview certainly existed. Ideas of reference and delusional thinking ongoing. The patient is not exhibiting any suicidal intention or homicidal ideation. SENSORIUM: Clear. COGNITION: Alert and oriented to person, place, and time, but only partially to situation. MEMORY: Immediate, recent, and remote unable to fully assess at this time. INTELLIGENCE: Unable to fully determine. Short interview would estimate historically average. INSIGHT AND JUDGMENT: Limited due to current psychotic thought processes. Likely underlying fixed delusions and manic-type appearing behaviors currently. ASSESSMENT This is a 52-year-old female. We will try to gain collateral information on her. The patient is suffering from the effects of amphetamines intoxication with an exacerbation of probably underlying delusional disorder. We will treat with Zyprexa which seemed to be helpful and beneficial to the patient on most recent admission, and we will again search for collateral information and set up any outpatient appointments that can be beneficial. The patient will remain under an emergency detainment at this time. We will likely go forward with first hearing for 10-day extension. DIAGNOSES 1. Stimulant use disorder, methamphetamine, severe. 2. Stimulant-induced psychosis. 3. Delusional disorder, persecutory type. 4. History of cannabis use disorder. 5. History of opiate use disorder. 6. History of bipolar disorder type I with psychotic features. 7. Stressors associated with illness. PLAN 1. Admit to the unit. 2. Necessary precautions will be implemented. 3. The patient will participate in individual and group therapy to the best of her ability. 4. Medications will be started and titrated accordingly including Zyprexa at this point. 5. Collateral information will be obtained as necessary. 6. Estimated length of stay unknown. The patient is under an emergency detainment. We will go forward with a 10-day extension hearing the early part of next week. MARCO
--- NOTE | 2017-10-16 19:40 | BHS - Psychiatric Evaluation ---
ER - Title 25 MHE Evaluation Title 25 Evaluation Patient Detained By: Physician (Dr Navid Gould), Law Enforcement Referral Source: Law Enforcement Date Patient Detained: Oct 15, 2017 Time Patient Detained: : Date Retirement Expires: Oct 20, 2017 Time Retirement Expires: 20:01 Legal Status: Police Hold: No Legal Status: Residence: [facility] Resident, State Resident Assessment Data Provided By: Patient, Other Source HPI/ROS: Per ER Physician, Navid Gould, "52-year-old female brought in by police, placed on emergency jail for cute psychosis. Patient was expressing suicidal ideation to her boyfriend. She had plans to hang herself to commit suicide. She has multiple self-inflicted marks on her left arm. Patient has no connection with reality. When asking her about different symptoms. She rambles on tangentially about how the government and [employer]. [employer] have ruined the world. She states that there is a electronic implant in her head. 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 Alcohol or Drugs Involved: Yes (Diagnostic evaluation shows a tox screen with positive amphetamines. Her blood alcohol level is very low) Is Patient Info Reliable: No (Patient is very hard to follow, experiencing delusions/psychotic) Is Collateral Info Reliable: Yes Current Home Psych Meds: Patient had been prescribed Clonazepam and Zyprexa. Clonazepam has been stopped. It is doubtful whether the patient has been taking any Zyprexa. Mental Status Exam General Appearance: Bizarre Mannerisms Speech: Rambling Mood: Other (Guarded) Affect: Withdrawn, Agitated Thought Process: Flight of Ideas Thought Content: Suicidal Ideation, Delusions, Ideas of Reference Cognition: Alert & Oriented-Person Memory: Immediate Insight Judgment: Poor Sleep: Hypersomnia Hallucinations: Auditory, Command auditory Delusions: Mind Control, Sexual Current Risk & History Current Dangerous Risk Assessm: Current Suicide Ideation (Initially said she planned to hang herself, but denies this now. Talks about Trump adminstration and shows self-inflicted black eye. She says she was trying to break a device implanted in her head.), Ubable to Care for Self (This is a 52-year-old female who was most recently on the Behavioral Health Unit in late June 2017 under similar circumstances of increasing delusional behavior.) Past Dangerous Risk Assessm: Self-Injurious Behaviors (Burning forearm) Prior Alcohol/Drug Abuse The patient has reported heroin use for many years in her remote history. The patient on last admission was using cannabis. On this admission, the patient admits to methamphetamine use. Previous Suicide Attempt: No Previous Attempt (Denies any past attempts, but patient is not a reliable historian.) Previous Psychiatric Illness: Yes Previous Diagnosis/Treatment: 1. Stimulant use disorder, methamphetamine, severe. 2. Stimulant-induced psychosis. 3. Delusional disorder, persecutory type. 4. History of cannabis use disorder. 5. History of opiate use disorder. 6. History of bipolar disorder type I with psychotic features. 7. Stressors associated with illness. Previous Psychiatric Treatment: Yes Previous Treatment Description Patient detained here at [facility] in June 2017. Risk Assessment & Disposition Evaluated Risk Assessment: Risk is high based on patient inability to understand reality and care for herself. She has delusions. Says she has been sex trafficking, and hearing political voices from the [employer]. Wants to pour bleach in her ear to stop the voices (from last admission 3 1/2 months ago), gave herself a significant contusion on her eye because she had hoped to damage a device she believed was implanted in her head. Risk is high based on patient inability to understand reality and care for herself. She has delusions. Says she has been sex trafficking, and hearing political voices from the [employer]. Wants to pour bleach in her ear to stop the voices. Impression: Primary Impression: Amphetamine abuse Additional Impressions: Bipolar 1 disorder with moderate ravi Delusional disorder, persecutory type, continuous Paranoid delusion Meets Mental Illness Req.: Yes Meets Dangerousness Req.: Yes Emergency Retirement to be: Upheld Decision Comment: Risk is high based on patient inability to understand reality and care for herself. She has delusions. Says she has been sex trafficking, and hearing political voices from the [employer]. Wants to pour bleach in her ear to stop the voices, inflicts self injury on her eye. Is unable to converse intelligibly , and continues to believe she is receiving transmissions about President Trump via an implant in her head. Date of Decision: Oct 16, 2017 Time of Decision: 19:55 Patient is Medically Stable at: Yes Disposition: [facility] Problem Qualifiers OMNIQUE DORSEY LPC Oct 16, 2017 19:40
--- NOTE | 2017-10-16 20:58 | BHS - Psychiatric Evaluation ---
Title 25 Evaluation Hearing Report: 109 Date of Report: Oct 16, 2017 Examiner: Crystal Dorsey M.S[facility] L[facility]P.C[facility] Patient Detained By: Physician (Dr. Sumit Carrillo), Law Enforcement 24hr Mental Health Eval By: Dr. Sumit Carrillo Date Patient Detained: Oct 15, 2017 Time Patient Detained: 20:01 Date Halfway Expires: Oct 20, 2017 Time Halfway Expires: 20:01 Legal Status: Police Hold: No Legal Status: Relationship: Single Legal Status: Residence: [facility] Resident, State Resident Referral Source: Brought to [facility] by Law Enforcement Assessment Data Provided By: Patient, Law Enforcement, Other Provider, Other Source Chief Complaint: Patient, Cookie Kate,is a 52-year-old female who was most recently on the Behavioral Health Unit in late June 2017 under similar circumstances of increasing delusional behavior. The patient presents to the Emergency Room delusional/psychotic and agitated. Patient is rambles about the Trump administration and having incestuous relationships. The patient is again very difficult to follow. The patient is admitting to using methamphetamine recently which may have triggered underlying delusional content to a higher level prior to admission. The patient was not aggressive towards staff, but was very frustrated. S professionals are unable to further interview patient at this time as she becomes very frustrated, seemingly responding to internal stimuli, she says to this interviewer, when asking about how she is feeling, yells, "You tell Trlelo to go to hell." HPI/ROS: Per ER Physician, Dr. Navid Olea, "52-year-old female brought in by police, placed on emergency nursing home for cute psychosis. Patient was expressing suicidal ideation to her boyfriend. She had plans to hang herself to commit suicide. She has multiple self-inflicted marks on her left arm. Patient has no connection with reality. When asking her about different symptoms. She rambles on tangentially about how the government and Pres. Trump have ruined the world. She states that there is an electronic implant in her head. It's telling her to masturbate and perform as a or and prostitute." Reliability of Pt-Evidenced By Patient is not a reliable historian. She is psychotic. Current Dangerous Risk Assess: Self-Injurious Behaviors (Hit her eye, causing significant contusion because she believed an implanted device in her head could be shut down by a blow to her head.) Current Risk Summary: Patient has no connection with reality. She is very high risk for continuing to injure herself. She's been burning her left arm with cigarettes. Hit her head to stop command hallucinations telling her to be a prostitute. 3 1/2 months ago, during her most recent psychiatric hospitalization here at [facility], patient wanted to pour bleach in her ear to stop auditory hallucinations. Patient is incapable of caring for herself in this state. Past Dangerous Risk Assess: Self-Injurious Behaviors (Patient injures self, burning arm, hitting self and using illicit drugs.) [facility] - Exam Physical Exam Vital Signs Vital Signs 10/16/17 10/16/17 10/16/17 06:16 12:55 18:41 Temp 97.4 Pulse 83 Resp 16 B/P (MAP) 104/72 (83) Pulse Ox 87 O2 Delivery Room Air O2 Flow Rate 1.5 Mental Status Exam General Appearance: Bizarre Mannerisms Speech: Rambling Affect: Withdrawn, Agitated Thought Process: Loose Associations, Flight of Ideas Thought Content: Delusions, Auditory Halllucinations, Ideas of Reference Cognition: Alert & Oriented-Person Memory: Immediate Intelligence: Below Average, Average Insight Judgment: Poor Sleep: Hypersomnia Title 25 History Psychiatric History: Patient appears to have arrived in [place] and did seek out treatment at [facility]. It is unknown if patient has any history of suicide attempts, but she denies being suicidal now, and no displays no parasuicidal behaviors are taking place. Patient reports currently being , however, patient very difficult to communicate with, patient having obvious loose associations and flight of ideas. In June 2017, patient was encouraged from [facility] staff to come to the ER for concerns of abdominal pain and weight loss. The providers at [facility] were noted to be concerned about her mental health and concerned for her safety. ER notes also indicate patient was very difficult to interview. Patient reporting that abdominal pain may be from "overdosing" on too many psych meds in the past. Patient reflecting on a "political war" that is going on, also focusing on "germ warfare," and patient known to have a fixation on her left ear and possible things that are implanted on the left ear or the left side of her body. Family Psychiatric Hx: No family psychiatric records are available at this time. We are awaiting records. Social History: Little is known about patient's social history as patient unable to effectively communicate. Patient reports coming to [place] most recently from [place] around six months ago. Patient is living in [facility] [place]. She most likely is on a disability for chronic, persisting mental illness. 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 She was on a police hold at that time, and discharged to police custody. Prior Outpatient Treatment: Patient has come to the attention and concern of outpatient providers at [facility], who encouraged her to seek care at ER/S. Drug & Alcohol Use: The patient has reported heroin use for many years, at least 15 she says, in her remote history. The patient on last admission was using cannabis. On this admission, the patient admits to methamphetamine use. Current Living Situation: Patient is living in [facility] [place] with a roommate who is reported to have limited function as well. Legal Concerns: Patient detained June,. She was on a police hold at this time, and discharged to police custody. Patient Strengths: Patient seems to be resourceful and does seek out services. Relevant Medical History: It is known that the patient has been diagnosed with hepatitis C it is thought. Patient's lab work is unremarkably overall. Relevant Medications: Patient has reportedly been most recently been prescribed Clonazepam and Zyprexa. It seems unlikely she has been taking the antipsychotic medication Zyprexa since her psychosis is currently significant and serious. Assessment and Plan Course of Care: Course of care will be consistent with a person who is decompensated, unable to care for herself and generally detached from reality. She will be provided with a safe and structured environment, and be treated with assessment, medication, therapy, case management, and appropriate transitional care. Diagnostic Impressions: 1. Stimulant use disorder, methamphetamine, severe. 2. Stimulant-induced psychosis. 3. Delusional disorder, persecutory type. 4. History of cannabis use disorder. 5. History of opiate use disorder. 6. History of bipolar disorder type I with psychotic features. 7. Stressors associated with illness. Assessment and Plan: Necessary precautions will be implemented. The patient will participate in individual and group therapy to the best of her ability. Medications will be started and titrated accordingly including Zyprexa. Collateral information will be obtained as necessary Risk Formulation: The patient "evidences a substantial probability of physical harm to self as manifested by evidence of recent threats of/or attempts at suicide or serious bodily harm" as evidenced by: Thoughts of hanging herself, burning herself, pouring bleach in her ear, injuring her head with a self-inflicted blow. She believes internal stimuli/commands that she should prostitute herself. Using methamphetamine. The patient "evidences behavior manifested by recent acts or omissions that, due to mental illness, the patient is unable to satisfy basic needs for nourishment, essential medical care, chcf, or safety so that a substantial probability exists that , serious physical injury, serious physical debilitation, serious mental debilitation, destabilization from lack of or refusal to take prescribed psychotropic medications for a diagnosed condition or serious physical disease will imminently ensue, unless the individual receives prompt and adequate treatment for this mental illness" as evidenced by : Continues self inflicted physical injury and worsening mental debilitation and destabilization from lack of or refusal to take prescribed psychotropic medications. She is psychotic, impulsive and self harming in her delusions. Recommendations of S Team: It is therefore recommended by the Behavioral Health Services Team: Patient, Cookie Kate, be held the full duration of her 72 hour hold or until she stabilizes. Patient is currently assessed as unstable. It may be further indicated for patient to stabilize for a longer duration. A 109 hearing is requested to recommend a longer duration of stabilization, including up to 10 days or until patient becomes stable. CRYSTAL DORSEY PROGRAM CONSULTANT Oct 16, 2017 19:17
[2017-10-16] MEDS: OLANZapine 5 MG TAB PO SCH (21:11)
[2017-10-17 06:23] VITALS: BP 98/60
[2017-10-17] MEDS: MULTIVITAMINS PO SCH (08:02)
[2017-10-17] MEDS: OLANZapine 5 MG TAB PO PRN ×2 (08:25→13:23)
--- NOTE | 2017-10-17 10:24 | BHS Progress Note ---
S - Subjective Progress Notes Subjective "Jose is putting voices in my head. He can't F'ing do that." Suicidal Ideation: None Homicidal Ideation: None S - Objective Physical Exam Vital Signs Vital Signs 10/16/17 10/16/17 10/17/17 06:16 12:55 06:23 Temp 98.0 Pulse 62 Resp 16 B/P (MAP) 98/60 (73) Pulse Ox 92 O2 Delivery Room Air O2 Flow Rate 1.5 Muscle Strength and Tone: WNL Gait and Station: Steady [facility] Medications Reviewed: Side Effects, Benefits of Medication, Risks Allergies Reviewed: Yes Mental Status Exam General Appearance: Psychomotor Agitation, Bizarre Mannerisms Speech: No Normal Volume, Rambling, Other (yelling often) Mood: Other (Guarded) Affect: Agitated Thought Process: Loose Associations, Flight of Ideas Thought Content: Delusions, Auditory Halllucinations, Ideas of Reference Cognition: Alert & Oriented-Person Memory: Immediate Intelligence: Below Average, Average Insight Judgment: Poor [facility] Assessment and Plan Lcvf-xw-[id number] Encounter Date: Oct 17, 2017 Btzv-rq-Fzez Encounter Time: 08:30 [facility] Plan: Admit to Unit, Necessary Precautions, Individual/Group Therapy, Admin /Titrate Meds, Educate Patient Tobacco Medications: Not Appropriate Condition Multpiple Antipsychotics Used: No Problems: (1) Bipolar 1 disorder with moderate ravi Status: Chronic (2) Delusional disorder, persecutory type, continuous Status: Chronic (3) Amphetamine abuse Status: Acute REJI PALUMBO NP Oct 17, 2017 10:24
[2017-10-17] MEDS: LORazepam 1 MG TAB PO PRN (13:23)
[2017-10-17] MEDS: diphenhydrAMINE 25 MG CAP PO PRN (13:23)
[2017-10-17 16:05] VITALS: BP 119/72
[2017-10-17] MEDS ORDERED: NICOTINE CARTRIDGE 1 EA PO PRN (17:15)
[2017-10-17] MEDS: NICOTINE INH SYSTEM 10 MG/INH INH PRN (17:42)
[2017-10-17] MEDS: OLANZapine 5 MG TAB PO SCH (21:09)
[2017-10-18] VITALS: BP 132/78
[2017-10-18] MEDS: MULTIVITAMINS PO SCH (07:57)
--- NOTE | 2017-10-18 09:49 | BHS Progress Note ---
S - Subjective Progress Notes Subjective "I'm okay." Client is seen while she is lying in bed. She is denying needs this am and wishes to sleep. Suicidal Ideation: None Homicidal Ideation: None [facility] - Objective Physical Exam Vital Signs Vital Signs 10/16/17 10/16/17 10/18/17 06:16 12:55 00:00 Temp 97.7 Pulse 73 Resp 16 B/P (MAP) 132/78 (96) Pulse Ox 92 O2 Delivery Room Air O2 Flow Rate 1.5 Muscle Strength and Tone: WNL Gait and Station: Steady [facility] Medications Reviewed: Side Effects, Benefits of Medication, Risks Allergies Reviewed: Yes Mental Status Exam General Appearance: Psychomotor Agitation, Bizarre Mannerisms Speech: No Normal Volume, Rambling, Other (yelling often) Mood: Other (Guarded) Affect: Neutral Thought Process: Loose Associations, Flight of Ideas Thought Content: Delusions, Auditory Halllucinations, Ideas of Reference Cognition: Alert & Oriented-Person Memory: Immediate Intelligence: Below Average, Average Insight Judgment: Poor [facility] Assessment and Plan Mvej-xr-Vqcg Encounter Date: Oct 18, 2017 Kxas-rv-Idtc Encounter Time: 09:15 [facility] Plan: Admit to Unit, Necessary Precautions, Individual/Group Therapy, Admin /Titrate Meds, Educate Patient Tobacco Medications: Not Appropriate Condition Multpiple Antipsychotics Used: No Problems: (1) Bipolar 1 disorder with moderate ravi Status: Chronic (2) Delusional disorder, persecutory type, continuous Status: Chronic (3) Amphetamine abuse Status: Acute REJI PALUMBO NP Oct 18, 2017 09:49
[2017-10-18 14:24] VITALS: BP 124/76
[2017-10-18] MEDS: OLANZapine 5 MG TAB PO PRN (14:29)
[2017-10-18] MEDS: diphenhydrAMINE 25 MG CAP PO PRN (14:30)
[2017-10-18] MEDS: OLANZapine 5 MG TAB PO SCH (20:34)
[2017-10-18 20:36] VITALS: BP 133/79
[2017-10-19 04:06] VITALS: BP 114/56
[2017-10-19] MEDS: MULTIVITAMINS PO SCH (08:14)
--- NOTE | 2017-10-19 13:42 | BHS Progress Note ---
[facility] - Subjective Progress Notes Subjective Patient remains grossly delusional today, talking about being hit in her left ear with an "MK ultra" weapon, and ongoing "PSY technological warfare. Patient continues to point to her right hand and refer to it as "sexual pervert" and left forearm as "prostitute". Patient was keeping her voice at a reasonable level today, compared to over the weekend. Will continue same medications today. patient is sleeping well, and appetite good. No other concerns today . Suicidal Ideation: None Homicidal Ideation: None [facility] - Objective Physical Exam Vital Signs Vital Signs Date Time Temp Pulse Resp B/P (MAP) Pulse Ox O2 Delivery O2 Flow Rate FiO2 10/19/17 04:06 97.7 58 15 114/56 (75) 90 Room Air 10/16/17 06:16 1.5 Muscle Strength and Tone: WNL Gait and Station: Steady [facility] Medications Reviewed: Side Effects, Benefits of Medication, Risks Allergies Reviewed: Yes Mental Status Exam General Appearance: Casual, No Well Groomed, Good Eye Contact, Cooperative, Polite, Good Interaction, Psychomotor Agitation (less today), Bizarre Mannerisms (pointing to hands and forearms, ) Speech: Clear, Spontaneous, Normal Rhythm, Normal Volume, Normal Tone, Rambling , Other (yelling often) Mood: Other (Guarded) Affect: Full and Appropriate (variable), No Sad, No Flat, No Withdrawn, Anxious Thought Process: No Organized, No Logical, Goal Directed (i want to go home.), Loose Associations, No Flight of Ideas Thought Content: No Suicidal Ideation, No Homicidal Ideation, Delusions, Auditory Halllucinations, No Visual Hallucinations, No Thought Broadcasting, Ideas of Reference, No Obsessions, No Compulsions Sensorium: Clear Cognition: Alert & Oriented-Person, Alert & Oriented-Place, Alert & Oriented- Time, No Gipka-Wvdzzfvk-Pzvpriuzs (partially) Memory: Immediate, Recent, Remote Intelligence: Average Insight Judgment: Poor (complicated by underlying fixed delusional disorder and relapsing into drug use, while likely not taking outpatient medications as prescribed. ) [facility] Assessment and Plan Thpj-vm-Xtjh Encounter Date: Oct 19, 2017 Llyw-vx-Vscu Encounter Time: 13:00 [facility] Plan: Admit to Unit, Necessary Precautions, Individual/Group Therapy, Admin /Titrate Meds, Educate Patient Tobacco Medications: Not Appropriate Condition Multpiple Antipsychotics Used: No Problems: (1) Delusional disorder, persecutory type, continuous Status: Chronic (2) Stimulant use disorder Status: Chronic Assessment & Plan: methamphetamine Condition 1. continue treatment. 2. no med changes. 3. schedule hearing. MARINA ARAGON MD Oct 19, 2017 13:42
[2017-10-19 13:43] VITALS: BP 114/70
[2017-10-19] MEDS: OLANZapine 5 MG TAB PO PRN (16:41)
[2017-10-19] MEDS: OLANZapine 5 MG TAB PO SCH (21:00)
[2017-10-20 04:11] VITALS: BP 109/77
[2017-10-20] MEDS: LORazepam 1 MG TAB PO PRN (08:27)
[2017-10-20] MEDS: OLANZapine 5 MG TAB PO PRN (08:27)
[2017-10-20] MEDS: diphenhydrAMINE 25 MG CAP PO PRN (08:27)
[2017-10-20] MEDS: NICOTINE INH SYSTEM 10 MG/INH INH PRN (09:15)
[2017-10-20] MEDS: MULTIVITAMINS PO SCH (09:17)
--- NOTE | 2017-10-20 09:41 | BHS Progress Note ---
[facility] - Subjective Progress Notes Subjective Patient tolerating hearing for ten day extension today well, and less interference overall from underlying psychosis. Patient continues to return conversation to persecutory delusions involving implanted electronic devices, and overall surveillance from the government. Patient was tolerant of discussion involving the use of illicit substances. No other concerns today, will continue to evaluate symptoms. Suicidal Ideation: None Homicidal Ideation: None [facility] - Objective Physical Exam Vital Signs Vital Signs Date Time Temp Pulse Resp B/P (MAP) Pulse Ox O2 Delivery O2 Flow Rate FiO2 10/20/17 04:11 97.7 67 16 109/77 (88) 95 Room Air Muscle Strength and Tone: WNL Gait and Station: Steady [facility] Medications Reviewed: Side Effects, Benefits of Medication, Risks Allergies Reviewed: Yes Mental Status Exam General Appearance: Casual, No Well Groomed, Good Eye Contact, Cooperative, Polite, Good Interaction, Unkept, Psychomotor Agitation (less today), Bizarre Mannerisms (pointing to hands and forearms, ) Speech: Clear, Spontaneous, Normal Rate, Normal Rhythm, Normal Volume, Normal Tone, Rambling (ongoing at times), Other (yelling often) Mood: Other (Guarded, improving some today.) Affect: Full and Appropriate (variable), No Sad, No Flat, No Withdrawn, Anxious Thought Process: No Organized, No Logical, Goal Directed (i want to go home.), Loose Associations (ongoing), No Flight of Ideas Thought Content: No Suicidal Ideation, No Homicidal Ideation, Delusions, Auditory Halllucinations, No Visual Hallucinations, No Thought Broadcasting, Ideas of Reference, No Obsessions, No Compulsions Sensorium: Clear Cognition: Alert & Oriented-Person, Alert & Oriented-Place, Alert & Oriented- Time, No Iiqhf-Siduvfjw-Awympejjy (partially) Memory: Immediate, Recent, Remote Intelligence: Average Insight Judgment: Poor (complicated by underlying fixed delusional disorder and relapsing into drug use, while likely not taking outpatient medications as prescribed. ) [facility] Assessment and Plan Nobp-gt-Krei Encounter Date: Oct 20, 2017 Mowv-ql-Ronb Encounter Time: 09:00 [facility] Plan: Admit to Unit, Necessary Precautions, Individual/Group Therapy, Admin /Titrate Meds, Educate Patient Tobacco Medications: Not Appropriate Condition Multpiple Antipsychotics Used: No Problems: (1) Delusional disorder, persecutory type, continuous Status: Chronic (2) Stimulant use disorder Status: Chronic Assessment & Plan: methamphetamine Condition 1. patient now on ten day extension. 2. continue treatment. 3. will have trial out of seclusion room. MARINA ARAGON MD Oct 20, 2017 09:41
[2017-10-20] MEDS: OLANZapine 5 MG TAB PO SCH (21:02)
[2017-10-21 01:43] VITALS: BP 104/55
[2017-10-21] MEDS: MULTIVITAMINS PO SCH (08:26)
--- NOTE | 2017-10-21 09:07 | BHS Progress Note ---
[facility] - Subjective Progress Notes Subjective Patient continues to improve, able to remain out of seclusion room, appetite and sleep good. Psychosis, concerning underlying persecutory delusions, continues. Will consider SANE exam, and STD testing. Mood appears to be improving, interacting well overall with significant other. Will continue current medications. Suicidal Ideation: None Homicidal Ideation: None [facility] - Objective Physical Exam Vital Signs Vital Signs Date Time Temp Pulse Resp B/P (MAP) Pulse Ox O2 Delivery O2 Flow Rate FiO2 10/21/17 01:43 97.8 65 15 104/55 (71) 94 Room Air Muscle Strength and Tone: WNL Gait and Station: Steady [facility] Medications Reviewed: Side Effects, Benefits of Medication, Risks Allergies Reviewed: Yes Mental Status Exam General Appearance: Casual, No Well Groomed, Good Eye Contact, Cooperative, Polite, Good Interaction, Unkept, Psychomotor Agitation (less today), Bizarre Mannerisms (pointing to hands and forearms, ) Speech: Clear, Spontaneous, Normal Rate, Normal Rhythm, Normal Volume, Normal Tone, Rambling (ongoing at times) Mood: Other (Guarded, improving some today.) Affect: Full and Appropriate (variable), No Sad, No Flat, No Withdrawn, Anxious Thought Process: No Organized, No Logical, Goal Directed (i want to go home.), Loose Associations (ongoing), No Flight of Ideas Thought Content: No Suicidal Ideation, No Homicidal Ideation, Delusions, Auditory Halllucinations, No Visual Hallucinations, No Thought Broadcasting, Ideas of Reference, No Obsessions, No Compulsions Sensorium: Clear Cognition: Alert & Oriented-Person, Alert & Oriented-Place, Alert & Oriented- Time, No Kciwi-Hhnntjzn-Tcdlycbiu (partially) Memory: Immediate, Recent, Remote Intelligence: Average Insight Judgment: Poor (complicated by underlying fixed delusional disorder and relapsing into drug use, while likely not taking outpatient medications as prescribed. ) [facility] Assessment and Plan Udso-kw-Fcyt Encounter Date: Oct 21, 2017 Exat-xe-Wzxu Encounter Time: 08:40 [facility] Plan: Admit to Unit, Necessary Precautions, Individual/Group Therapy, Admin /Titrate Meds, Educate Patient Tobacco Medications: Not Appropriate Condition Multpiple Antipsychotics Used: No Problems: (1) Delusional disorder, persecutory type, continuous Status: Chronic (2) Stimulant use disorder Status: Chronic Assessment & Plan: methamphetamine Condition 1. continue treatment. 2. no medication changes. 3. consider STD screen. MARINA ARAGON MD Oct 21, 2017 09:07
[2017-10-21] MEDS: OLANZapine 5 MG TAB PO PRN ×2 (10:22→17:45)
[2017-10-21 12:25] VITALS: BP 116/68
[2017-10-21] MEDS: diphenhydrAMINE 25 MG CAP PO PRN (17:58)
[2017-10-21] MEDS: OLANZapine 5 MG TAB PO SCH (20:50)
[2017-10-22 06:23] VITALS: BP 127/78
[2017-10-22] MEDS: MULTIVITAMINS PO SCH (08:12)
[2017-10-22] MEDS: OLANZapine 5 MG TAB PO PRN ×2 (08:13→15:10)
[2017-10-22] MEDS: NICOTINE INH SYSTEM 10 MG/INH INH PRN ×3 (09:20→21:06)
--- NOTE | 2017-10-22 12:24 | BHS Progress Note ---
[facility] - Subjective Progress Notes Subjective Patient remains in a state of complex persecutory delusions, but remains fairly cooperative on a daily basis. Patient resistant to increase in medications, and if pushed, may start refusing medication all together. Slow improvement with overall psychosis continues, in absence of illicit substances. Suicidal Ideation: None Homicidal Ideation: None [facility] - Objective Physical Exam Vital Signs Vital Signs Date Time Temp Pulse Resp B/P (MAP) Pulse Ox O2 Delivery O2 Flow Rate FiO2 10/22/17 06:23 98.0 51 15 127/78 (94) 94 Room Air Muscle Strength and Tone: WNL Gait and Station: Steady [facility] Medications Reviewed: Side Effects, Benefits of Medication, Risks Allergies Reviewed: Yes Mental Status Exam General Appearance: Casual, No Well Groomed, Good Eye Contact, Cooperative, Polite, Good Interaction, Unkept, Psychomotor Agitation (less today), Bizarre Mannerisms (pointing to hands and forearms, ) Speech: Clear, Spontaneous, Normal Rate, Normal Rhythm, Normal Volume, Normal Tone, Rambling (ongoing at times) Mood: Other (Guarded, improving some today.) Affect: Full and Appropriate (variable), No Sad, No Flat, No Withdrawn, Anxious Thought Process: No Organized, No Logical, Goal Directed (i want to go home.), Loose Associations (ongoing), No Flight of Ideas Thought Content: No Suicidal Ideation, No Homicidal Ideation, Delusions, Auditory Halllucinations, No Visual Hallucinations, No Thought Broadcasting, Ideas of Reference, No Obsessions, No Compulsions Sensorium: Clear Cognition: Alert & Oriented-Person, Alert & Oriented-Place, Alert & Oriented- Time, No Bmrio-Wnxxbjfm-Hsumetxui (partially) Memory: Immediate, Recent, Remote Intelligence: Average Insight Judgment: Poor (complicated by underlying fixed delusional disorder and relapsing into drug use, while likely not taking outpatient medications as prescribed. ) [facility] Assessment and Plan Sigp-jc-Hlcq Encounter Date: Oct 22, 2017 Ejcm-md-Xqle Encounter Time: 11:30 [facility] Plan: Admit to Unit, Necessary Precautions, Individual/Group Therapy, Admin /Titrate Meds, Educate Patient Tobacco Medications: Not Appropriate Condition Multpiple Antipsychotics Used: No Problems: (1) Delusional disorder, persecutory type, continuous Status: Chronic (2) Stimulant use disorder Status: Chronic Assessment & Plan: methamphetamine Condition 1. continue treatment. 2. no medication changes. MARINA ARAGON MD Oct 22, 2017 12:24
[2017-10-22] MEDS: diphenhydrAMINE 25 MG CAP PO PRN (15:10)
[2017-10-22] MEDS: OLANZapine 5 MG TAB PO SCH (20:26)
[2017-10-22 21:27] VITALS: BP 109/82
[2017-10-23] MEDS: MULTIVITAMINS PO SCH (08:17)
[2017-10-23] MEDS: OLANZapine 5 MG TAB PO PRN (09:18)
[2017-10-23] MEDS: diphenhydrAMINE 25 MG CAP PO PRN (09:18)
--- NOTE | 2017-10-23 10:13 | BHS Progress Note ---
[facility] - Subjective Progress Notes Subjective Patient continues to be very animated, with exacerbation of underlying delusional content, Will increase zyprexa at [facility] and encourage patient to start a mood stabilizer. Information will be given to patient regarding various mood stabilizers, in hopes that patient herself will agree to trial of mood stabilizer in this patient whose underlying delusions include being "medicated for years as a part of a government experiment" Appetite and sleep intact currently, and patient overall is appropriate on the unit. Suicidal Ideation: None Homicidal Ideation: None [facility] - Objective Physical Exam Vital Signs Vital Signs Date Time Temp Pulse Resp B/P (MAP) Pulse Ox O2 Delivery O2 Flow Rate FiO2 10/22/17 21:27 97.6 101 109/82 (91) 96 Room Air 10/22/17 06:23 15 Muscle Strength and Tone: WNL Gait and Station: Steady [facility] Medications Reviewed: Side Effects, Benefits of Medication, Risks Allergies Reviewed: Yes Mental Status Exam General Appearance: Casual, No Well Groomed, Good Eye Contact, Cooperative, Polite, Good Interaction, Unkept, Psychomotor Agitation (less today), Bizarre Mannerisms (pointing to hands and forearms, ) Speech: Clear, Spontaneous, Normal Rate, Normal Rhythm, Normal Volume, Normal Tone, Rambling (ongoing at times) Mood: Other (Guarded, improving some today.) Affect: Full and Appropriate (variable), No Sad, No Flat, No Withdrawn, Anxious Thought Process: No Organized, No Logical, Goal Directed (i want to go home.), Loose Associations (ongoing), Flight of Ideas Thought Content: No Suicidal Ideation, No Homicidal Ideation, Delusions, Auditory Halllucinations, No Visual Hallucinations, No Thought Broadcasting, Ideas of Reference, No Obsessions, No Compulsions Sensorium: Clear Cognition: Alert & Oriented-Person, Alert & Oriented-Place, Alert & Oriented- Time, No Wixnc-Ipkkzswk-Chcmcahnc (partially) Memory: Immediate, Recent, Remote Intelligence: Average Insight Judgment: Poor (complicated by underlying fixed delusional disorder and relapsing into drug use, while likely not taking outpatient medications as prescribed. ) [facility] Assessment and Plan Brxe-sl-Teeq Encounter Date: Oct 23, 2017 [place]-qn-Fstm Encounter Time: 08:40 [facility] Plan: Admit to Unit, Necessary Precautions, Individual/Group Therapy, Admin /Titrate Meds, Educate Patient Tobacco Medications: Not Appropriate Condition Multpiple Antipsychotics Used: No Problems: (1) Delusional disorder, persecutory type, continuous Status: Chronic Assessment & Plan: rule out schizoaffective disorder bipolar type. (2) Stimulant use disorder Status: Chronic Assessment & Plan: methamphetamine Condition 1. continue treatment. 2. encourage patient to agree to start a mood stabilizer, so as not to propel delusion where patient refuses medications all together. 3. increase zyprexa to 15mg scheduled at night. MARINA ARAGON MD Oct 23, 2017 10:13
[2017-10-23] MEDS: NICOTINE INH SYSTEM 10 MG/INH INH PRN ×2 (13:44→21:02)
--- NOTE | 2017-10-23 14:29 | BHS - Psychiatric Evaluation ---
Title 25 Evaluation Hearing Report: 110 Date of Report: Oct 23, 2017 Examiner: Monique Dorsey M.S[facility] L[facility]P.C[facility] Patient Detained By: Physician (Dr. Sumit Carrillo), Law Enforcement 24hr Mental Health Eval By: Dr. Sumit Carrillo Date Patient Detained: Oct 15, 2017 Time Patient Detained: 20:01 Date Long Term Expires: Oct 20, 2017 Time Long Term Expires: 20:01 Legal Status: Police Hold: No Legal Status: Relationship: Single Legal Status: Residence: [facility] Resident, State Resident Referral Source: Brought to [facility] by Law Enforcement Assessment Data Provided By: Patient, Law Enforcement, Other Provider, Other Source Chief Complaint: Patient, Cookie Kate, is a 52-year-old female who was most recently on the Behavioral Health Unit in late June, under similar circumstances of increasing delusional behavior. The patient presents to the Emergency Room delusional/psychotic and agitated. Patient is rambles about the Trump administration and having incestuous relationships. The patient is again very difficult to follow. The patient is admitting to using methamphetamine recently which may have triggered underlying delusional content to a higher level prior to admission. The patient has not been aggressive towards staff, but has become very frustrated. Patient is difficult to soothe and says the voices Trump puts in her head upset her. Patient often becomes very labile and frustrated, seemingly responding to internal stimuli. On one occasion, patient was nude on the unit and was quite agitated. HPI/ROS: Per ER Physician, Dr. Navid Gould, "52-year-old female brought in by police, placed on emergency assisted for cute psychosis. Patient was expressing suicidal ideation to her boyfriend. She had plans to hang herself to commit suicide. She has multiple self-inflicted marks on her left arm. Patient has no connection with reality. When asking her about different symptoms. She rambles on tangentially about how the government and Pres. Trump have ruined the world. She states that there is an electronic implant in her head. It's telling her to masturbate and perform as a or and prostitute." Reliability of Pt-Evidenced By Patient is not a reliable historian. She is frequently psychotic. Current Dangerous Risk Assess: Self-Injurious Behaviors (Hit her eye, causing significant contusion because she believed an implanted device in her head could be shut down by a blow to her head.) Current Risk Summary: Patient has little connection with reality. She is very high risk for continuing to injure herself. She's been burning her left arm with cigarettes. She hit her head to stop command hallucinations telling her to be a prostitute. 3 1/2 months ago, during her most recent psychiatric hospitalization here at [facility], patient wanted to pour bleach in her ear to stop auditory hallucinations. Patient is incapable of caring for herself in this state. She has no consistent connection to professional help. Past Dangerous Risk Assess: Suicide Ideation-last 6mo (Patient reportedly told ER staff she wanted to hang herself.), Self-Injurious Behaviors (Patient injures self, burning arm, hitting self and using illicit drugs.) [facility] - Exam Physical Exam Vital Signs Vital Signs 10/22/17 10/22/17 06:23 21:27 Temp 97.6 Pulse 101 Resp 15 B/P (MAP) 109/82 (91) Pulse Ox 96 O2 Delivery Room Air Mental Status Exam General Appearance: Casual, No Well Groomed, Good Eye Contact, Cooperative, Polite, Good Interaction, Unkept, Psychomotor Agitation (Inconsistent.), Bizarre Mannerisms (pointing to hands and forearms, ) Speech: Clear, Spontaneous, Normal Rate, Normal Rhythm, Normal Volume, Normal Tone, Rambling (ongoing at times) Mood: Other (Guarded, improving some today.) Affect: Full and Appropriate (variable), No Sad, No Flat, No Withdrawn, Anxious Thought Process: No Organized, No Logical, Goal Directed (Says, "I want to go home."), Loose Associations (Ongoing), Flight of Ideas Thought Content: No Suicidal Ideation, No Homicidal Ideation, Delusions, Auditory Halllucinations, No Visual Hallucinations, No Thought Broadcasting, Ideas of Reference, No Obsessions, No Compulsions Sensorium: Clear Cognition: Alert & Oriented-Person, Alert & Oriented-Place, Alert & Oriented- Time, No Qfmri-Looievcb-Qggfiqbgh (Partially) Memory: Immediate, Recent, Remote Intelligence: Average Insight Judgment: Poor (Complicated by a likely underlying fixed delusional disorder and relapsing into drug use, while likely not taking psychotropic medications as prescribed.) Sleep: Hypersomnia Title 25 History Psychiatric History: Patient appears to have arrived in [place] and did seek out treatment at [facility]. It is unknown if patient has any history of suicide attempts, but she denies being suicidal now, and no displays no parasuicidal behaviors are taking place. Patient reports currently being , however, patient very difficult to communicate with, patient having obvious loose associations and flight of ideas. In June 2017, patient was encouraged from [facility] staff to come to the ER for concerns of abdominal pain and weight loss. The providers at [facility] were noted to be concerned about her mental health and concerned for her safety. Provider Connie Parada sees patient in an outreach capacity infrequently because patient will not commit to full, consistent, outpatient treatment. ER notes also indicate patient was very difficult to interview. Patient reporting that abdominal pain may be from "overdosing" on too many psych medications in the past. Patient reflecting on a "political war" that is going on, also focusing on "germ warfare," and patient known to have a fixation on her left ear and possible things that are implanted on the left ear or the left side of her body. Family Psychiatric Hx: No family psychiatric records are available at this time. Social History: Little is known about patient's social history as patient unable to effectively communicate. Patient reports coming to [place] most recently from [place] around six months ago. Patient is living in [facility]. She most likely is on a disability for chronic, persisting mental illness. 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 She was on a police hold at that time, and discharged to police custody. 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 Prior Outpatient Treatment: Patient has come to the attention and concern of outpatient providers at [facility], who encouraged her to seek care at ER/S. [facility] Director, Connie Parada, sees patient on an outreach basis because patient will not agree to full- fledged outpatient treatment. Drug & Alcohol Use: The patient has reported heroin use for many years, at least 15 she says, in her remote history. The patient on last admission was using cannabis. It is reported patient sought treatment at a methadone clinic. On this admission, the patient admits to methamphetamine use. Current Living Situation: Patient is living in [facility] with a roommate who is reported to have limited function as well. Legal Concerns: Patient detained June,. She was on a police hold at this time, and discharged to police custody. 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 Patient Strengths: Patient seems to be resourceful and does seek out services. She is intelligent and speaks persuasively. Relevant Medications: Zyprexa Assessment and Plan Course of Care: Course of care will be consistent with a person who is decompensated, unable to care for herself and generally detached from reality. She will be provided with a safe and structured environment, and be treated with assessment, medication, therapy, case management, and appropriate transitional care. Diagnostic Impressions: 1. Stimulant use disorder, methamphetamine, severe. 2. Stimulant-induced psychosis. 3. Delusional disorder, persecutory type. 4. History of cannabis use disorder. 5. History of opiate use disorder. 6. History of bipolar disorder type I with psychotic features. 7. Stressors associated with illness. Assessment and Plan: Necessary precautions will be implemented. The patient will participate in individual and group therapy to the best of her ability. Medications will be started and titrated accordingly including Zyprexa. Collateral information will be obtained as necessary Risk Formulation: The patient "evidences a substantial probability of physical harm to self as manifested by evidence of recent threats of/or attempts at suicide or serious bodily harm" as evidenced by: Thoughts of hanging herself, burning herself, pouring bleach in her ear, injuring her head with a self-inflicted blow to her eye. She believes internal stimuli/commands that she should prostitute herself. Using methamphetamine. The patient "evidences behavior manifested by recent acts or omissions that, due to mental illness, the patient is unable to satisfy basic needs for nourishment, essential medical care, group home, or safety so that a substantial probability exists that , serious physical injury, serious physical debilitation, serious mental debilitation, destabilization from lack of or refusal to take prescribed psychotropic medications for a diagnosed condition or serious physical disease will imminently ensue, unless the individual receives prompt and adequate treatment for this mental illness" as evidenced by : Self-inflicted physical injury and worsening mental debilitation and destabilization. She is psychotic, impulsive and self-harming in her delusions. Patient reports high levels of despondency and anxiety. During those times, patient becomes unable to cope, and live on her own in an unstructured setting. She becomes unsafe and requires hospitalization. Her home setting as well as no full connection to outpatient treatment support her stability needs insufficiently. She is at high risk for being victimized especially related to internal delusions she believes that command her to act as a prostitute. These behaviors when patient is detached from reality are likely very unsafe for her. Recommendations of S Team: It is therefore recommended by the Behavioral Health Services Team: That the patient, Cookie Kate, be committed to the [facility] ([facility]) or another appropriate and suitable least restrictive environment for further evaluation and stabilization. She is currently assessed as unstable and in need of a high level of care which can be provided at [facility]. MONIQUE DORSEY LOCKSTITCH BACK MAKER Oct 23, 2017 14:23
[2017-10-23 18:03] VITALS: BP 108/72
[2017-10-23] MEDS: OLANZapine 5 MG TAB PO SCH (20:46)
[2017-10-24] MEDS: MULTIVITAMINS PO SCH (09:10)
--- NOTE | 2017-10-24 11:36 | BHS Progress Note ---
[facility] - Subjective Progress Notes Subjective "I was a little crazy yesterday, It's hard to hear the voices. I get upset about what's going on with the political pickle, I need to keep my mind calm. When I was in [place] it was full of smart dust and that's when they started being able to tap into my pillow and the pillow said retreat psychological warfare." Patient cooperative with interview, underlying delusional content prominent, remains animated. Paranoia ongoing, reports auditory hallucinations. Will continue Zyprexa 15mg at hs and encourage mood stabilizer. Appetite and sleep intact currently "I slept well last night." Behavior remains appropriate on the unit, will maintain precautions Suicidal Ideation: None Homicidal Ideation: None S - Objective Physical Exam Muscle Strength and Tone: WNL Gait and Station: Steady [facility] Medications Reviewed: Side Effects, Benefits of Medication, Risks Allergies Reviewed: Yes Mental Status Exam General Appearance: Casual, No Well Groomed (appears unkempt), Good Eye Contact , Cooperative, Polite, Good Interaction, Unkept, Psychomotor Agitation ( Inconsistent.), Bizarre Mannerisms (pointing to hands and forearms, ) Speech: Clear, Spontaneous, Normal Rate, Normal Rhythm, Normal Volume, Normal Tone, Rambling (ongoing at times) Mood: Other (Guarded, improving some today.) Affect: Full and Appropriate (variable), No Sad, No Flat, No Withdrawn, Anxious Thought Process: No Organized, No Logical, No Goal Directed, Loose Associations (Ongoing), Flight of Ideas Thought Content: No Suicidal Ideation, No Homicidal Ideation, Delusions, Auditory Halllucinations, No Visual Hallucinations, No Thought Broadcasting, Ideas of Reference, No Obsessions, No Compulsions Sensorium: Clear Cognition: Alert & Oriented-Person, Alert & Oriented-Place, Alert & Oriented- Time, No Wirzt-Jotywebm-Yiimcmebo (Partially) Memory: Immediate, Recent, Remote Intelligence: Average Insight Judgment: Poor (Complicated by a likely underlying fixed delusional disorder and relapsing into drug use, while likely not taking psychotropic medications as prescribed.) Lab Current Medications Medications (Trade) Dose Ordered Sig/Pedrito Route PRN Reason Start Time Stop Time Status Last Admin Dose Admin Acetaminophen (Tylenol(*)325 Mg Tab (Or Equiv)) 650 mg Q4H PRN PO HEADACHE 10/15/17 22:50 11/14/17 22:49 Al Hydrox/Mg Hydrox/Simethicone (Maalox(*) 30 ml Udcup (Or Equiv)) 30 ml Q4H PRN PO DYSPEPSIA 10/15/17 22:50 11/14/17 22:49 Multivitamins (Thera-M Enhanced Tab (Or Equiv)) 1 each QDAY PO 10/16/17 09:00 11/15/17 08:59 10/24/17 09:10 Olanzapine (zyPREXA (OR EQUIV)) 5 mg Q6H PRN PO ATITATION 10/15/17 22:50 11/14/17 22:49 Cancel Olanzapine (zyPREXA(*) (OR EQUIV)) 10 mg Q6H PRN IM ONLY AGITATION 10/15/17 22:50 11/14/17 22:49 Lorazepam (Ativan(*) 1 Mg Tab (Or Equiv)) 2 mg Q6H PRN PO AGITATION 10/15/17 22:50 10/29/17 22:49 10/20/17 08:27 Lorazepam (Ativan(*) 2 Mg/ ml Vial (Or Equiv)) 2 mg Q6H PRN IM AGITATION 10/15/17 22:50 10/29/17 22:49 Diphenhydramine HCl (Benadryl(*) 25 Mg Cap (Or Equiv)) 50 mg Q6H PRN PO AGITATION 10/15/17 22:50 11/14/17 22:49 10/23/17 09:18 Diphenhydramine HCl (Benadryl(*) 50 Mg/ml Vial (Or Equiv)) 50 mg Q6H PRN IM AGITATION 10/15/17 22:50 11/14/17 22:49 Olanzapine (zyPREXA (OR EQUIV)) 10 mg Q6H PRN PO ATITATION 10/15/17 22:55 10/16/17 13:26 DC Olanzapine (zyPREXA (OR EQUIV)) 5 mg Q6H PRN PO ATITATION 10/16/17 13:25 11/15/17 13:24 10/23/17 09:18 Olanzapine (zyPREXA (OR EQUIV)) 10 mg QHS PO 10/16/17 21:00 10/23/17 09:22 DC 10/22/17 20:26 Nicotine (Nicotrol Inhaler 10 Mg/Inh (Or Equiv)) 10 mg PRN PRN INH NICOTINE REPLACEMENT 10/17/17 17:15 11/16/17 17:14 10/23/17 21:02 Miscellaneous Information (Nicotrol Cartridge) 1 each PRN PRN PO NICOTINE REPLACEMENT 10/17/17 17:15 11/16/17 17:14 10/17/17 17:42 Olanzapine (zyPREXA (OR EQUIV)) 15 mg QHS PO 10/23/17 21:00 11/22/17 20:59 10/23/17 20:46 Vital Signs Date Time Temp Pulse Resp B/P (MAP) Pulse Ox O2 Delivery O2 Flow Rate FiO2 10/23/17 18:03 98.6 81 15 108/72 (84) 98 Room Air Allergies Coded Allergies No Known Drug Allergies (Unverified09/12/17) BHS Assessment and Plan Gmpv-ft-Cwlq Encounter Date: Oct 24, 2017 Hwck-ax-Pzao Encounter Time: 11:34 BHS Plan: Admit to Unit, Necessary Precautions, Individual/Group Therapy, Admin /Titrate Meds, Educate Patient Tobacco Medications: Not Appropriate Condition Multpiple Antipsychotics Used: No Problems: (1) Stimulant use disorder Status: Chronic (2) Delusional disorder, persecutory type, continuous Status: Chronic Condition Ongoing precautions, continue current medication and treatment Will encourage mood stabilizer, continue Zyprexa 15 mg po q pm EILEEN LOPEZ NP Oct 24, 2017 11:35
[2017-10-24 12:30] VITALS: BP 100/60
[2017-10-24] MEDS: NICOTINE INH SYSTEM 10 MG/INH INH PRN ×2 (13:01→21:14)
[2017-10-24] MEDS: OLANZapine 5 MG TAB PO SCH (20:13)
[2017-10-25] MEDS: MULTIVITAMINS PO SCH (08:42)
--- NOTE | 2017-10-25 10:37 | BHS Progress Note ---
BHS - Subjective Progress Notes Subjective "It's hard to listen to the voices. I'm a little frustrated and still have some racing thoughts. People I was hanging out with, the government tapped into things, I normally wouldn't drugs, I was used as a lab animal for political war. Do I have any civil rights against this political warfare?" Paranoid, delusional, auditory hallucinations, racing thoughts Disorderly conduct charges pending per patient, reports previous felony charge for sales, denies long term terms, previous incarceration x 60 days Reports 15 year history of heroin use, states has been clean off heroin x 3 years Reports use of methamphetamine "Was because I ended up at the wrong house." Denies depression "I just get a little frustrated" Anxiety "I don't have any, I don't like the Trump administration." Slept well, speech less pressured during interview with team members, able to present with team in treatment team without outbursts Declines option of mood stabilizer, previous use of Depakote, denies benefit and states, "I'm not going on Krebs." Will increase Olanzapine, obtain baseline EKG Suicidal Ideation: None Homicidal Ideation: None BHS - Objective Physical Exam Muscle Strength and Tone: WNL Gait and Station: Steady [facility] Medications Reviewed: Side Effects, Benefits of Medication, Risks Allergies Reviewed: Yes Mental Status Exam General Appearance: Casual, No Well Groomed (appears unkempt), Good Eye Contact , Cooperative, Polite, Good Interaction, Unkept, Psychomotor Agitation ( Inconsistent.), Bizarre Mannerisms (pointing to hands and forearms, ) Speech: Clear, Spontaneous, No Normal Rate, Normal Rhythm, Normal Volume, Normal Tone, Rambling (ongoing at times), Other (pressured) Mood: Other (Guarded, improving some today, interacts fairly well with team members, no outbursts) Affect: Full and Appropriate (variable), No Sad, No Flat, No Withdrawn, Anxious , Other (paranoid) Thought Process: No Organized, No Logical, No Goal Directed, Loose Associations (Ongoing), Flight of Ideas Thought Content: No Suicidal Ideation, No Homicidal Ideation, Delusions, Auditory Halllucinations, No Visual Hallucinations, No Thought Broadcasting, Ideas of Reference, No Obsessions, No Compulsions Sensorium: Clear Cognition: Alert & Oriented-Person, Alert & Oriented-Place, Alert & Oriented- Time, No Horqn-Upuybccb-Rionzjodu (Partially) Memory: Immediate, Recent, Remote Intelligence: Average Insight Judgment: Poor (Complicated by a likely underlying fixed delusional disorder and relapsing into drug use, while likely not taking psychotropic medications as prescribed.) Lab Vital Signs Date Time Temp Pulse Resp B/P (MAP) Pulse Ox O2 Delivery O2 Flow Rate FiO2 10/24/17 12:30 98.6 62 15 100/60 (73) 97 Room Air Allergies Coded Allergies No Known Drug Allergies (Unverified09/12/17) [facility] Assessment and Plan Mexh-xv-Cskp Encounter Date: Oct 25, 2017 Iqvl-mx-Jshq Encounter Time: 10:26 [facility] Plan: Admit to Unit, Necessary Precautions, Individual/Group Therapy, Admin /Titrate Meds, Educate Patient Tobacco Medications: Not Appropriate Condition Multpiple Antipsychotics Used: No Problems: (1) Stimulant use disorder Status: Chronic (2) Delusional disorder, persecutory type, continuous Status: Chronic Condition Continue current medication management and treatment Declines option of mood stabilizer Agrees with increase in Olanzapine Obtain baseline EKG EILEEN LOPEZ NP Oct 25, 2017 10:37
--- NOTE | 2017-10-25 15:42 | EKG ---
FACILITY: [facility] PATIENT NAME: ALYSHA BOSS : [id number] MR: [id number] V: [id number] EXAM DATE: ORDERING PHYSICIAN: EILEEN LOPEZ TECHNOLOGIST: LIYA Garcia Reason : QT Blood Pressure : / mmHG Vent. Rate : 066 BPM Atrial Rate : 066 BPM P-R Int : 140 ms QRS Dur : 082 ms QT Int : 394 ms P-R-T Axes : 050 063 056 degrees QTc Int : 413 ms Normal sinus rhythm Normal ECG No previous ECGs available Confirmed by KATERINA PINO ([id number]) on 10/25/2017 7:22:19 PM Referred By: JESSICA Confirmed By:KATERINA PINO
[2017-10-25] MEDS: NICOTINE INH SYSTEM 10 MG/INH INH PRN (15:52)
[2017-10-25] MEDS: OLANZapine 5 MG TAB PO SCH (20:34)
[2017-10-26] MEDS: MULTIVITAMINS PO SCH (08:29)
--- NOTE | 2017-10-26 11:16 | BHS Progress Note ---
S - Subjective Progress Notes Subjective Patient is tolerant of increased zyprexa last PM, continues to decline the addition of mood stabilizer, such as depakote, lithium, or others. Patient able to be polite at times, and does remain re-directed rather easily. Will go forward with hearing to hopefully establish an outpatient commitment for Patient to abstain from illicit substances, and follow up as an outpatient. Patient's significant other voicing some reservations about patient returning home with him, although stating "I want her to come home" Will continue to evaluate and encourage mood stabilizer. No other concerns. Suicidal Ideation: None Homicidal Ideation: None S - Objective Physical Exam Muscle Strength and Tone: WNL Gait and Station: Steady [facility] Medications Reviewed: Side Effects, Benefits of Medication, Risks Allergies Reviewed: Yes Mental Status Exam General Appearance: Casual, No Well Groomed (appears unkempt), Good Eye Contact , Cooperative, Polite, Good Interaction, Unkept, Psychomotor Agitation ( Inconsistent.), Bizarre Mannerisms (pointing to hands and forearms, ) Speech: Clear, Spontaneous, No Normal Rate, Normal Rhythm, Normal Volume, Normal Tone, Rambling (ongoing at times), Other (pressured) Mood: Other (Guarded, improving some today, interacts fairly well with team members, no outbursts) Affect: Full and Appropriate (variable), No Sad, No Flat, No Withdrawn, Anxious , Other (paranoid) Thought Process: No Organized, No Logical, No Goal Directed, Loose Associations (Ongoing), Flight of Ideas Thought Content: No Suicidal Ideation, No Homicidal Ideation, Delusions, Auditory Halllucinations, No Visual Hallucinations, No Thought Broadcasting, Ideas of Reference, No Obsessions, No Compulsions Sensorium: Clear Cognition: Alert & Oriented-Person, Alert & Oriented-Place, Alert & Oriented- Time, No Gcedj-Eaqdgnup-Opxpggibd (Partially) Memory: Immediate, Recent, Remote Intelligence: Average Insight Judgment: Poor (Complicated by a likely underlying fixed delusional disorder and relapsing into drug use, while likely not taking psychotropic medications as prescribed.) [facility] Assessment and Plan Kssn-sm-Rorl Encounter Date: Oct 26, 2017 Ikov-mq-Lfhm Encounter Time: 10:30 [facility] Plan: Admit to Unit, Necessary Precautions, Individual/Group Therapy, Admin /Titrate Meds, Educate Patient Tobacco Medications: Not Appropriate Condition Multpiple Antipsychotics Used: No Problems: (1) Delusional disorder, persecutory type, continuous Status: Chronic Assessment & Plan: rule out schizoaffective disorder bipolar type. (2) Stimulant use disorder Status: Chronic Assessment & Plan: methamphetamine Condition 1. continue treatment. 2. [address] hearing. MARINA ARAGON MD Oct 26, 2017 11:16
[2017-10-26 13:41] VITALS: BP 113/81
[2017-10-26] MEDS: NICOTINE INH SYSTEM 10 MG/INH INH PRN (19:07)
[2017-10-26] MEDS: OLANZapine 5 MG TAB PO SCH (20:49)
[2017-10-27] MEDS: MULTIVITAMINS PO SCH (09:28)
--- NOTE | 2017-10-27 12:43 | BHS Progress Note ---
[facility] - Subjective Progress Notes Subjective Patient cooperative with interview today, and ongoing loose associations continue. Similarity in all associations of persecution superimposed upon delusions of government control ongoing. Patient encouraged again to consider a mood stability agent. in addition to current regimen. Patient cooperative today, appetite good, sleep overall intact. Suicidal Ideation: None Homicidal Ideation: None [facility] - Objective Physical Exam Vital Signs Vital Signs Date Time Temp Pulse Resp B/P (MAP) Pulse Ox O2 Delivery O2 Flow Rate FiO2 10/26/17 13:41 98.6 128 113/81 (92) 95 Room Air 10/24/17 12:30 15 Muscle Strength and Tone: WNL Gait and Station: Steady [facility] Medications Reviewed: Side Effects, Benefits of Medication, Risks Allergies Reviewed: Yes Mental Status Exam General Appearance: Casual, Well Groomed, Good Eye Contact, Cooperative, Polite , Good Interaction, No Unkept, No Tearful, Psychomotor Agitation (Inconsistent.) , Bizarre Mannerisms (pointing to hands and forearms, ) Speech: Clear, Spontaneous, No Normal Rate, Normal Rhythm, Normal Volume, Normal Tone, Rambling (ongoing at times), Other (pressured) Mood: Other (Guarded) Affect: Full and Appropriate (variable), No Sad, No Flat, No Withdrawn, Anxious , Other (paranoid) Thought Process: No Organized, No Logical, No Goal Directed, Loose Associations (Ongoing), Flight of Ideas Thought Content: No Suicidal Ideation, No Homicidal Ideation, Delusions, Auditory Halllucinations, No Visual Hallucinations, No Thought Broadcasting, Ideas of Reference, No Obsessions, No Compulsions Sensorium: Clear Cognition: Alert & Oriented-Person, Alert & Oriented-Place, Alert & Oriented- Time, No Zuxkc-Xqxspgkz-Ohjdoxomv (Partially) Memory: Immediate, Recent, Remote Intelligence: Average Insight Judgment: Poor (Complicated by a likely underlying fixed delusional disorder and relapsing into drug use, while likely not taking psychotropic medications as prescribed.) [facility] Assessment and Plan Ljmw-ry-Vhka Encounter Date: Oct 27, 2017 [id number]-[id number] Encounter Time: 10:00 [facility] Plan: Admit to Unit, Necessary Precautions, Individual/Group Therapy, Admin /Titrate Meds, Educate Patient Tobacco Medications: Not Appropriate Condition Multpiple Antipsychotics Used: No Problems: (1) Delusional disorder, persecutory type, continuous Status: Chronic Assessment & Plan: rule out schizoaffective disorder bipolar type. (2) Stimulant use disorder Status: Chronic Assessment & Plan: methamphetamine Condition 1. continue treatment. 2. encourage mood stabilizer. MARINA ARAGNO MD Oct 27, 2017 12:43
[2017-10-27] MEDS: NICOTINE INH SYSTEM 10 MG/INH INH PRN (17:55)
[2017-10-27] MEDS: OLANZapine 5 MG TAB PO SCH (20:41)
[2017-10-27 20:53] VITALS: BP 120/76
[2017-10-28] MEDS: MULTIVITAMINS PO SCH (08:28)
--- NOTE | 2017-10-28 10:48 | BHS Progress Note ---
S - Subjective Progress Notes Subjective Underlying delusions of electronic persecution continue, but patient is overall cooperative on the unit, no para-suicidal behavior, no homicidal ideation. Patient sleep intact. Appetite good. Patient still exhibiting flight of ideas and loose associations, but is refusing additional mood stabilizer administration at this time. [place] or Tegretol could be helpful, however it would be better if patient would stay with current dosing of zyprexa rather than become angry and stop all medications if patient goes on an outpatient commitment. Patient notably able to complete tasks on the unit, Some underlying bipolar type symptomatology likely exists. Will have hearing in AM. Spoke with significant other who does want her to return to living with him , and agrees to help her to the best of his ability if she is to return home. Suicidal Ideation: None Homicidal Ideation: None S - Objective Physical Exam Vital Signs Vital Signs Date Time Temp Pulse Resp B/P (MAP) Pulse Ox O2 Delivery O2 Flow Rate FiO2 10/27/17 20:53 98.7 74 120/76 (91) 96 Room Air 10/24/17 12:30 15 Muscle Strength and Tone: WNL Gait and Station: Steady [facility] Medications Reviewed: Side Effects, Benefits of Medication, Risks Allergies Reviewed: Yes Mental Status Exam General Appearance: Casual, Well Groomed, Good Eye Contact, Cooperative, Polite , Good Interaction, No Unkept, No Tearful, Psychomotor Agitation (at times when speaking of underlying delusions), No Psychomotor Retardation, Bizarre Mannerisms (pointing to hands and forearms, ) Speech: Clear, Spontaneous, No Normal Rate, Normal Rhythm, Normal Volume, Normal Tone, Rambling (ongoing at times), Other (pressured) Mood: Other (Guarded) Affect: Full and Appropriate (variable), No Sad, No Flat, No Withdrawn, Anxious , Other (paranoid) Thought Process: No Organized, No Logical, No Goal Directed, Loose Associations (Ongoing), Flight of Ideas Thought Content: No Suicidal Ideation, No Homicidal Ideation, Delusions, Auditory Halllucinations, No Visual Hallucinations, No Thought Broadcasting, Ideas of Reference, No Obsessions, No Compulsions Sensorium: Clear Cognition: Alert & Oriented-Person, Alert & Oriented-Place, Alert & Oriented- Time, No Ugojy-Pfiehstp-Kzkdnzouo (Partially) Memory: Immediate, Recent, Remote Intelligence: Average Insight Judgment: Poor (Complicated by a likely underlying fixed delusional disorder and relapsing into drug use, while likely not taking psychotropic medications as prescribed.) [facility] Assessment and Plan Ubcf-vs-[id number] Encounter Date: Oct 28, 2017 Kkjl-xv-Tbbp Encounter Time: 10:00 [facility] Plan: Admit to Unit, Necessary Precautions, Individual/Group Therapy, Admin /Titrate Meds, Educate Patient Tobacco Medications: Not Appropriate Condition Multpiple Antipsychotics Used: No Problems: (1) Delusional disorder, persecutory type, continuous Status: Chronic (2) Stimulant use disorder Status: Chronic Condition 1. continue treatment. 2. hearing tomorrow. MARINA ARAGON MD Oct 28, 2017 10:48
[2017-10-28 13:37] VITALS: BP 102/63
[2017-10-28] MEDS: LITHIUM CARBONATE 300 MG CAP PO SCH (21:06)
[2017-10-28] MEDS: OLANZapine 5 MG TAB PO SCH (21:07)
[2017-10-29] MEDS: MULTIVITAMINS PO SCH (08:19)
[2017-10-29] MEDS: LITHIUM CARBONATE 300 MG CAP PO SCH (08:47)
--- NOTE | 2017-10-29 11:18 | BHS Progress Note ---
[facility] - Subjective Progress Notes Subjective Patient very polite and cooperative today, and appropriate with treatment team staff. Patient gravitates toward underlying fixed persecutory delusional content if given the opportunity to do so, but remained re-directible. Patient has started lithium last PM with some encouragement for hopeful benefit in what may be an underlying bipolar type symptomatology. Patient is bright, observant , and able to identify what she needs to do if she should return to outpatient treatment following hearing today. Appetite and sleep intact. Suicidal Ideation: None Homicidal Ideation: None S - Objective Physical Exam Vital Signs Vital Signs Date Time Temp Pulse Resp B/P (MAP) Pulse Ox O2 Delivery O2 Flow Rate FiO2 10/28/17 13:37 97.6 75 102/63 (76) 97 Room Air Hematology Test 10/29/17 05:15 Triglycerides Level 76 mg/dl (0-250) Cholesterol Level 235 mg/dl (75-200) LDL Cholesterol 117 mg/dl VLDL Cholesterol 15 mg/dl HDL Cholesterol 103 mg/dl Percent HDL Cholesterol 43.0 % Cholesterol Ratio (LDL/HDL) 1.13 Cholesterol/HDL Ratio 2.3 Chemistry Test 10/29/17 05:15 Triglycerides Level 76 mg/dl (0-250) Cholesterol Level 235 mg/dl (75-200) LDL Cholesterol 117 mg/dl VLDL Cholesterol 15 mg/dl HDL Cholesterol 103 mg/dl Percent HDL Cholesterol 43.0 % Cholesterol Ratio (LDL/HDL) 1.13 Cholesterol/HDL Ratio 2.3 Muscle Strength and Tone: WNL Gait and Station: Steady [facility] Medications Reviewed: Side Effects, Benefits of Medication, Risks Allergies Reviewed: Yes Mental Status Exam General Appearance: Casual, Well Groomed, Good Eye Contact, Cooperative, Polite , Good Interaction, No Unkept, No Tearful, No Psychomotor Agitation, No Psychomotor Retardation, Bizarre Mannerisms (pointing to hands and forearms, at times) Speech: Clear, Spontaneous, No Normal Rate, Normal Rhythm, Normal Volume, Normal Tone, Rambling (ongoing at times), Other (pressured) Mood: Other (Guarded) Affect: Full and Appropriate (variable), No Sad, No Flat, No Withdrawn, Anxious , Other (paranoid) Thought Process: No Organized, No Logical, No Goal Directed, Loose Associations (Ongoing), Flight of Ideas Thought Content: No Suicidal Ideation, No Homicidal Ideation, Delusions, Auditory Halllucinations, No Visual Hallucinations, No Thought Broadcasting, Ideas of Reference, No Obsessions, No Compulsions Sensorium: Clear Cognition: Alert & Oriented-Person, Alert & Oriented-Place, Alert & Oriented- Time, No Vtokq-Vjdjnbbt-Phzysnvrj (Partially) Memory: Immediate, Recent, Remote Intelligence: Average Insight Judgment: Poor (Complicated by a likely underlying fixed delusional disorder and relapsing into drug use, while likely not taking psychotropic medications as prescribed.) [facility] Assessment and Plan [id number]-[id number] Encounter Date: Oct 29, 2017 Gczg-[id number]-[id number] Encounter Time: 09:00 [facility] Plan: Admit to Unit, Necessary Precautions, Individual/Group Therapy, Admin /Titrate Meds, Educate Patient Tobacco Medications: Not Appropriate Condition Multpiple Antipsychotics Used: No Problems: (1) Delusional disorder, persecutory type, continuous Status: Chronic Assessment & Plan: rule out schizoaffective disorder bipolar type. (2) Stimulant use disorder Status: Chronic Assessment & Plan: methamphetamine Condition 1. continue treatment. 2. no medication changes. 3. hearing today. MARINA ARAGON MD Oct 29, 2017 11:18
[2017-10-29] MEDS: NICOTINE INH SYSTEM 10 MG/INH INH PRN (13:14)
[2017-10-29] MEDS ORDERED: LIT300CAP PO (14:15)
[2017-10-29] MEDS ORDERED: MULT-1379 PO (14:16)
[2017-10-29] MEDS ORDERED: [UNRECOGNIZED DRUG - OTHER] (14:17)
[2017-10-29] MEDS ORDERED: NICO10SP NS (14:17)
[2017-10-29] MEDS ORDERED: NICOTROL PO (14:19)
[2017-10-29] MEDS ORDERED: OLAN20TA18 PO (14:20)
--- NOTE | 2017-11-04 19:40 | DISCHARGE SUMMARY ---
DATE OF ADMISSION: October 15, 2017 DATE OF DISCHARGE: October 29, 2017 The patient was seen on October 29, 2017, at approximately 1100 hours concerning this discharge note. FINAL DIAGNOSES 1. Delusional disorder, persecutory type. 2. Stimulant use disorder, severe. 3. Cannabis use disorder, moderate. 4. Stimulant-induced psychotic disorder, resolved. 5. Rule out bipolar disorder, unspecified. 6. The patient does have supportive relationship overall with significant other and will have outpatient plan in place, followed by [facility]. REASON FOR ADMISSION This is a 52-year-old female who is becoming well known to the Behavioral Health Unit. The patient suffers from underlying delusional disorder, persecutory type, and this was exacerbated by methamphetamine use and cannabis use at times as well. The patient was brought in and placed under emergency detainment. In the absence of methamphetamine, the patient's delusion disorder returned to baseline. The patient was partially stabilized concerning her delusional disorder symptomatology on olanzapine and lithium. The patient was taking medications as prescribed, and the patient did agree to abstain from all further illicit substance use. The patient, again, is having longstanding underlying delusional disorder, but at time of discharge under a stipulated outpatient-directed commitment order, the patient would continue to see a therapist and have medications adjusted accordingly. The patient overall was pleasant and cooperative by time of discharge on the unit and appropriate for ongoing outpatient treatment with close observation. PHYSICAL EXAMINATION Please see emergency room note. Notable for: GENERAL: A 52-year-old female, thin body habitus with contusion of left eye that was self-induced. Also notable cigarettes marks on left forearm that were self-induced under methamphetamine-induced psychosis which was superimposed upon underlying delusional disorder, persecutory type. No other medical concerns. VITAL SIGNS: Vital signs at time of admission were temperature 97.9, pulse 93, respiratory rate 24, blood pressure 132/119, and pulse oximetry 96% on room air. At time of discharge from Behavioral Health Unit, vital signs showed temperature 97.6, pulse 75, respiratory rate 15, blood pressure 102/63, and pulse oximetry 97% on room air. LABORATORY DATA Cholesterol was noted to be elevated at 235, triglycerides 76, LDL cholesterol 117. Cholesterol/HDL ratio was 2.3. CBC was overall unremarkable. CMP notable for mild elevation of AST at 52. TSH 1.05 and normal range. screen negative. Urinalysis unremarkable. Toxicology screen positive for amphetamines at time of admission and a serum alcohol level of 12. MENTAL STATUS EXAMINATION AT TIME OF DISCHARGE GENERAL APPEARANCE, BEHAVIOR, AND ATTITUDE: This is a pleasant, 52-year-old female interacting overall well with this provider and tolerant of discharge process. The patient was interacting well with staff members. No psychomotor agitation or retardation. The patient was making good eye contact. No periods of tearfulness. Underlying delusional disorder, persecutory type was present and will likely remain so. SPEECH: Within normal limits. Regular rate, rhythm, volume, and tone. MOOD: Described as good. AFFECT: Full and mood congruent. THOUGHT PROCESSES: Appeared goal directed. The patient agreed to outpatient commitment. Loose associations underlying, associated with delusional disorder were present, but had mostly resolved, and the patient was overall logical. THOUGHT CONTENT: Free of visual hallucinations. Auditory hallucinations coupled with delusions of persecution continue at times, but had lessened. Ideas of reference present at times. No suicidal or homicidal ideations. SENSORIUM: Clear. COGNITION: Alert and oriented to person, place, time, and situation. MEMORY: Immediate, recent, and remote estimated intact. INTELLIGENCE: Average based on interview and multiple previous interviews. INSIGHT AND JUDGMENT: Considered grossly intact and appropriate for ongoing close observation and outpatient care in the absence of alcohol or illicit substance use. RESULTS OF TESTING IMAGING: None. LABORATORY DATA: See above. CONSULTATIONS None. TREATMENT The patient received medications and participated in individual and group therapy. HOSPITAL COURSE The patient agreed to take Zyprexa at night. This was gradually titrated to 20 mg with good effect. The patient's psychotic condition associated with acute methamphetamine intoxication resolved, the patient returning to baseline delusional disorder, content of persecutory type. The patient also agreed to take lithium with some hesitation, and the patient signed outpatient commitment. The patient was pleasant and cooperative toward the end of her stay. CONDITION OF PATIENT ON DISCHARGE Considered stable and of minimal risk to herself or others in the absence of illicit substance use or alcohol, and the patient would need to continue current medications. DISPOSITION The patient discharged to home in the care of her significant other. The patient would follow up with [facility] for medication management and would also follow up with therapist. She would abstain from all substance use, including alcohol, cannabis, and methamphetamine. She was given the crisis line should symptoms return. The patient would have a lithium level drawn in one week, and this would be a trough a.m. level. DISCHARGE MEDICATIONS 1. [place] carbonate 300 mg twice daily. 2. Multivitamin with minerals daily. 3. Xvgg-ruf-alexoao nicotine replacement if needed. 4. Olanzapine 20 mg at bedtime. PROGNOSIS The prognosis for this patient would remain relatively good if the patient continues to abstain from all illicit substances and take medications as prescribed. In the event the patient is to use illicit substances or go off medications, quick decompensation resulting in a readmission to the hospital is highly likely. At such time, the patient would be then transferred to the [facility] [place], [place]. Risks, benefits, and alternatives of the above discharge plan were discussed. Informed consent was given to proceed with the above discharge plan by the patient's significant other, the patient herself, and treatment team staff. MARCO
== END 2017-10-29 16:40 | disposition home or self-care (01) | DRG 885 ==
LOC: BHS 21:47
PROVIDERS: ADMIT Registered Nurse Psychiatric/Mental Health, Adult; ATTEND Registered Nurse Psychiatric/Mental Health, Adult
DX: F22 Delusional disorders (principal); F15.259 Other stimulant dependence with stimulant-induced psychotic disorder, unspecified; R45.851 Suicidal ideations; T43.596A Underdosing of other antipsychotics and neuroleptics, initial encounter; F11.21 Opioid dependence, in remission; Y90.0 Blood alcohol level of less than 20 mg/100 ml; Z91.128 Patient's intentional underdosing of medication regimen for other reason; Z91.5 Personal history of self-harm; S05.12XA Contusion of eyeball and orbital tissues, left eye, initial encounter; F17.210 Nicotine dependence, cigarettes, uncomplicated; F12.20 Cannabis dependence, uncomplicated; F31.32 Bipolar disorder, current episode depressed, moderate
CPT/HCPCS: 36415; 82465; 83718; 84478; 90853; 93005; Q0163

== ENCOUNTER 2017-12-02 10:40 | Emergency (ER) | payer MEDICAID ==
[~2017-12-02 10:40] MED LIST changes: +LIT300CAP PO; +MULT-1379 PO; +NICO10SP NS; +NICOTROL PO; +OLAN20TA18 PO; +[UNRECOGNIZED DRUG - OTHER]
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
[2017-12-02 11:32] LABS: PLATELET COUNT, AUTOMATED 292 K/uL (150-450)
[2017-12-02] MEDS ORDERED: NICOTINE INH SYSTEM 10 MG/INH INH PRN (12:05)
[2017-12-02 13:25] VITALS: BP 102/83
--- NOTE | 2017-12-02 13:46 | RADIOLOGY IMAGING REPORT ---
FACILITY: [facility] PATIENT NAME: Cookie Kate : 1965 MR: [id number] V: [id number] EXAM DATE: ORDERING PHYSICIAN: KEHINDE GRAJEDA TECHNOLOGIST: Location: [facility] [place] Patient: Cookie Kate : 1965 Visit/Account:[id number] Date of Sevice: 12/02/2017 Study: RIBS RIGHT Indication: Rib pain Comparison study: None Findings: Three views of the right ribs demonstrates no evidence of right-sided pleural effusion or p neumothorax. There is no evidence of acute bony abnormality. The right-sided ribs are unremarkable in appearance. A skin marker was placed at the area of maximal tenderness. No subjacent abnormality is identified. IMPRESSION: Unremarkable exam Report Dictated By: Delgado Díaz at 12/02/2017 1:40 PM Report E-Signed By: Delgado Díaz at 12/02/2017 1:41 PM WSN:[email or web address]
--- NOTE | 2017-12-02 13:48 | RADIOLOGY IMAGING REPORT ---
FACILITY: [facility] [place] PATIENT NAME: Cookie Kate : 1965 MR: [id number] V: [id number] EXAM DATE: ORDERING PHYSICIAN: KEHINDE GRAJEDA TECHNOLOGIST: Location: [facility] [place] Patient: Cookie Kate : 1965 Visit/Account:[id number] Date of Sevice: 12/02/2017 Study: Frontal and lateral views of the chest Indication: Right-sided rib pain Comparison study: None Findings: PA and lateral views of the chest demonstrate no evidence of acute infiltrate. There is no evidence of pleural effusion. There is no evidence of pneumothorax. The mediastinal, cardiac, and diaphragmatic contours are unremarkable. The visualized bony structures are unremarkable. IMPRESSION: Unremarkable chest. Report Dictated By: Delgado Díaz at 12/02/2017 1:43 PM Report E-Signed By: Delgado Díaz at 12/02/2017 1:43 PM WSN:[id number]
--- NOTE | 2017-12-02 17:30 | BHS - Psychiatric Evaluation ---
ER - Title 25 MHE Evaluation Title 25 Evaluation Patient Detained By: Other Referral Source: [facility] Date Patient Detained: Dec 02, 2017 Time Patient Detained: 11:08 Date Retirement Expires: Dec 07, 2017 Time Retirement Expires: 11:08 Legal Status: Police Hold: No Legal Status: Residence: [facility] Resident Assessment Data Provided By: Therapist HPI/ROS: Please review ER note for history of present illness. Admit due to SI or Attempt: No Suicide Plan: No Plan Alcohol or Drugs Involved: Yes Mental Status Exam General Appearance: Unkept Speech: Rambling Mood: Hyperthymic Affect: Calm, Agitated Thought Process: Flight of Ideas Thought Content: Auditory Halllucinations, Obsessions Sensorium: Clear Cognition: [id number] Memory: Immediate, Recent Insight Judgment: Fair Sleep: Normal Hallucinations: Auditory Delusions: Persecutory Current Risk & History Current Dangerous Risk Assessm: Ubable to Care for Self Past Dangerous Risk Assessm: Other Previous Suicide Attempt: No Previous Attempt Previous Psychiatric Illness: Yes Previous Psychiatric Treatment: Yes Risk Assessment & Disposition Evaluated Risk Assessment: Patient has failed to keep up with her court ordered outpatient treatment, she is not taking her medications, patient is currently homeless and was unable to care for herself. Impression: Primary Impression: Paranoid delusion Meets Mental Illness Req.: Yes Meets Dangerousness Req.: Yes Emergency Retirement to be: Upheld Date of Decision: Dec 02, 2017 Time of Decision: 13:30 Patient is Medically Stable at: Yes Disposition: KEHINDE LAMBERT Dec 02, 2017 17:30
== END 2017-12-02 11:01 | disposition other institution (70) ==
LOC: ER 11:01
DX: F22 Delusional disorders (principal); F32.9 Major depressive disorder, single episode, unspecified; F41.9 Anxiety disorder, unspecified; F17.200 Nicotine dependence, unspecified, uncomplicated
CPT/HCPCS: 36415; 71046; 71100; 80178; 80305; 81001; 81025; 83735; 84443; 85025; 99283; G0480; 80320; 80329; 82040; 82247; 82310; 82374; 82435; 82565; 82947; 84075; 84132; 84155; 84295; 84450; 84460; 84520

== ENCOUNTER 2017-12-02 13:13 | Inpatient (IN) | payer MEDICAID, OTHER ==
[~2017-12-02] VITALS: Ht 177.8 cm; Wt 63.5 kg
[2017-12-02 13:32] VITALS: BP 112/70
[2017-12-02] MEDS ORDERED: ACETAMINOPHEN 325 MG TAB PO PRN ×2 (14:30→14:45)
[2017-12-02] MEDS ORDERED: NICOTINE CARTRIDGE 1 EA PO PRN (14:30)
[2017-12-02] MEDS ORDERED: MAG HYD/AL HYD/SIMETH 30ML UDC PO PRN (14:30)
[2017-12-02] MEDS: NICOTINE INH SYSTEM 10 MG/INH INH PRN (14:38)
[2017-12-02] MEDS ORDERED: OLANZapine 5 MG TAB PO ONE (17:00)
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
[2017-12-02] MEDS: LITHIUM CARBONATE 300 MG CAP PO SCH (21:08)
[2017-12-03 04:00] VITALS: BP 100/62
[2017-12-03] MEDS: MULTIVITAMINS PO SCH (08:13)
[2017-12-03] MEDS: LITHIUM CARBONATE 300 MG CAP PO SCH ×2 (08:14→20:15)
[2017-12-03] MEDS: OLANZapine 5 MG TAB PO PRN ×2 (11:44→20:00)
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
[2017-12-03] MEDS ORDERED: OLANZapine 5 MG TAB PO SCH ×2 (21:00)
[2017-12-04 05:25] VITALS: BP 124/72
[2017-12-04] MEDS: LITHIUM CARBONATE 300 MG CAP PO SCH ×2 (08:01→19:47)
[2017-12-04] MEDS: MULTIVITAMINS PO SCH (08:01)
--- NOTE | 2017-12-04 10:52 | BHS Progress Note ---
[facility] - Subjective Progress Notes Subjective Patient agitated last evening, but in the end was able to redirect, Underlying delusions of persecution continue. Will increase zyprexa tonight, and continue lithium at current dose. Will continue treatment, hearing will be set for this patient who has failed at outpatient treatment, and is on a suspended commitment. Appetite and sleep intact. Mood frustrated with being placed back iin the hospital. Suicidal Ideation: None Homicidal Ideation: None [facility] - Objective Physical Exam Vital Signs Vital Signs Date Time Temp Pulse Resp B/P (MAP) Pulse Ox O2 Delivery O2 Flow Rate FiO2 12/04/17 05:25 98.2 90 124/72 (89) 98 Room Air 12/03/17 04:00 16 Muscle Strength and Tone: WNL Gait and Station: Steady [facility] Medications Reviewed: Side Effects, Benefits of Medication, Risks Allergies Reviewed: Yes Mental Status Exam General Appearance: Casual, Well Groomed, Good Eye Contact, Cooperative, Polite , Good Interaction, No Tearful, No Psychomotor Agitation, No Psychomotor Retardation, No Bizarre Mannerisms, No Tics Speech: Clear, Spontaneous, Normal Rate, Normal Rhythm, Normal Volume, Normal Tone, No Delayed, No Slurred, No Garbled, Rambling Mood: Dysthmic/Depressed (frustrated with being placed in hospital. ) Affect: Calm, Neutral, Agitated (mildly) Thought Process: Loose Associations (ongoing) Thought Content: No Suicidal Ideation, No Homicidal Ideation, Delusions, Auditory Halllucinations, No Visual Hallucinations, Ideas of Reference, Obsessions Sensorium: Clear Cognition: Alert & Oriented-Person, Alert & Oriented-Place, Alert & Oriented- Time, No Buhgw-Ttbipqse-Ntdcwunvs (partially) Memory: Immediate, Recent, Remote Intelligence: Average Insight Judgment: Poor (maladaptive stress coping mechanisms, underlying delusional disorder. ) [facility] Assessment and Plan Tfat-qs-Lmmk Encounter Date: Dec 04, 2017 Soyi-qt-Leqr Encounter Time: 10:45 [facility] Plan: Necessary Precautions, Individual/Group Therapy, Admin/Titrate Meds, Educate Patient Tobacco Medications: Not Appropriate Condition Multpiple Antipsychotics Used: No Problems: (1) Delusional disorder, persecutory type, continuous Status: Chronic (2) Bipolar 1 disorder with moderate ravi Status: Chronic (3) Cannabis use disorder, severe, in controlled environment Status: Chronic (4) Stimulant use disorder Status: Chronic Condition 1. continue treatment. 2. increase zyprexa to 20mg QHS 3. arrange hearing. MARINA ARAGON MD Dec 04, 2017 10:52
[2017-12-04] MEDS: OLANZapine 5 MG TAB PO PRN (12:31)
[2017-12-04 13:20] VITALS: BP 118/72
[2017-12-04 17:30] VITALS: BP 116/60
[2017-12-04] MEDS: OLANZapine 5 MG TAB PO SCH (19:47)
[2017-12-04] MEDS ORDERED: diphenhydrAMINE 25 MG CAP PO ONE (20:15)
[2017-12-04] MEDS ORDERED: LORazepam 1 MG TAB PO ONE (20:15)
[2017-12-05 03:55] VITALS: BP 119/78
[2017-12-05] MEDS: LITHIUM CARBONATE 300 MG CAP PO SCH ×2 (08:29→20:27)
[2017-12-05] MEDS: MULTIVITAMINS PO SCH (08:30)
--- NOTE | 2017-12-05 09:43 | BHS Progress Note ---
[facility] - Subjective Progress Notes Subjective "I'm good, thank you." Interviewed in room, behavior escalated last pm, was hitting self, offered seclusion room although able to stay in room after Benadryl/Ativan given. Denies anger, depression, anxiety this am. Calm during interview this am, cooperative. Continue Olanzapine and [place], awaiting hearing as has failed outpatient treatment and is on suspended commitment. Suicidal Ideation: None Homicidal Ideation: None [facility] - Objective Physical Exam Muscle Strength and Tone: WNL Gait and Station: Steady [facility] Medications Reviewed: Side Effects, Benefits of Medication, Risks Allergies Reviewed: Yes Mental Status Exam General Appearance: Casual, Well Groomed, Good Eye Contact, Cooperative, Polite , Good Interaction, No Tearful, No Psychomotor Agitation, No Psychomotor Retardation, No Bizarre Mannerisms, No Tics Speech: Clear, Spontaneous, Normal Rate, Normal Rhythm, Normal Volume, Normal Tone, No Delayed, No Slurred, No Garbled, No Rambling Mood: Dysthmic/Depressed (frustrated with being placed in hospital. ) Affect: Calm, Neutral, Agitated (last pm hitting self) Thought Process: Loose Associations (ongoing) Thought Content: No Suicidal Ideation, No Homicidal Ideation, Delusions, Auditory Halllucinations, No Visual Hallucinations, Ideas of Reference, Obsessions Sensorium: Clear Cognition: Alert & Oriented-Person, Alert & Oriented-Place, Alert & Oriented- Time, No Snesy-Htxcrkrq-Xdnyxrkpk (partially) Memory: Immediate, Recent, Remote Intelligence: Average Insight Judgment: Poor (maladaptive stress coping mechanisms, underlying delusional disorder. ) Lab Vital Signs Date Time Temp Pulse Resp B/P (MAP) Pulse Ox O2 Delivery O2 Flow Rate FiO2 12/05/17 03:55 97.7 68 119/78 (92) 97 Room Air 12/04/17 17:30 16 Allergies Coded Allergies No Known Drug Allergies (Unverified12/02/17) [facility] Assessment and Plan Chzo-ro-Qqkn Encounter Date: Dec 05, 2017 Dsrh-tq-Nneh Encounter Time: 09:41 [facility] Plan: Necessary Precautions, Individual/Group Therapy, Admin/Titrate Meds, Educate Patient Tobacco Medications: Not Appropriate Condition Multpiple Antipsychotics Used: No Problems: (1) Bipolar 1 disorder with moderate ravi Status: Chronic (2) Delusional disorder, persecutory type, continuous Status: Chronic (3) Cannabis use disorder, severe, in controlled environment Status: Chronic (4) Stimulant use disorder Status: Chronic Condition Continue current medications Maintain precautions Awaiting hearing for disposition EILEEN LOPEZ NP Dec 05, 2017 09:43
[2017-12-05 12:45] VITALS: BP 106/60
[2017-12-05 18:05] VITALS: BP 106/68
[2017-12-05] MEDS: OLANZapine 5 MG TAB PO SCH (20:27)
[2017-12-06 04:55] VITALS: BP 135/81
[2017-12-06] MEDS: MULTIVITAMINS PO SCH (08:45)
[2017-12-06] MEDS: LITHIUM CARBONATE 300 MG CAP PO SCH ×2 (08:45→20:22)
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
[2017-12-06 13:30] VITALS: BP 108/60
[2017-12-06] MEDS: NICOTINE INH SYSTEM 10 MG/INH INH PRN (17:51)
[2017-12-06 18:10] VITALS: BP 102/62
[2017-12-06] MEDS: OLANZapine 5 MG TAB PO SCH (20:22)
[2017-12-07] MEDS: LITHIUM CARBONATE 300 MG CAP PO SCH ×2 (08:25→20:39)
[2017-12-07] MEDS: MULTIVITAMINS PO SCH (08:25)
--- NOTE | 2017-12-07 11:33 | BHS Progress Note ---
[facility] - Subjective Progress Notes Subjective Patient cooperative on the unit today, underlying delusions of persecutory nature continue. Patient denies any suicidal or homicidal ideation, and no para -suicidal behaviors have been exhibited on the unit. Mood remains frustrated at being on the unit, and awaits hearing at this time. appetite and sleep okay. [place] level noted to be 0.3 this AM while patient is on 300mg twice daily. Will increase to 300mg QAM, and 600mg QHS. No other concerns. Suicidal Ideation: None Homicidal Ideation: None [facility] - Objective Physical Exam Vital Signs Vital Signs Date Time Temp Pulse Resp B/P (MAP) Pulse Ox O2 Delivery O2 Flow Rate FiO2 12/06/17 18:10 99.1 69 15 102/62 (75) 97 Room Air Muscle Strength and Tone: WNL Gait and Station: Steady [facility] Medications Reviewed: Side Effects, Benefits of Medication, Risks Allergies Reviewed: Yes Mental Status Exam General Appearance: Casual, Well Groomed, Good Eye Contact, Cooperative, Polite , Good Interaction, No Tearful, No Psychomotor Agitation, No Psychomotor Retardation, No Bizarre Mannerisms, No Tics Speech: Clear, Spontaneous, Normal Rate, Normal Rhythm, Normal Volume, Normal Tone, No Delayed, No Slurred, No Garbled, No Rambling Mood: Dysthmic/Depressed (frustrated with being placed in hospital. ) Affect: Full and Appropriate, Calm, Neutral, Tearful (Tearful when talks of losing son as taken away from her ), Agitated (last pm hitting self) Thought Process: Organized, Logical, No Loose Associations (ongoing) Thought Content: No Suicidal Ideation, No Homicidal Ideation, Delusions, Auditory Halllucinations, No Visual Hallucinations, Ideas of Reference, No Obsessions Sensorium: Clear Cognition: Alert & Oriented-Person, Alert & Oriented-Place, Alert & Oriented- Time, No Dejwx-Plhtxjlu-Ergsflhsx (partially) Memory: Immediate, Recent, Remote Intelligence: Average Insight Judgment: Poor (maladaptive stress coping mechanisms, underlying delusional disorder. ) [facility] Assessment and Plan Ivfx-yb-Pyoz Encounter Date: Dec 07, 2017 Tyhe-al-Ixbz Encounter Time: 11:00 [facility] Plan: Necessary Precautions, Individual/Group Therapy, Admin/Titrate Meds, Educate Patient Tobacco Medications: Not Appropriate Condition Multpiple Antipsychotics Used: No Problems: (1) Delusional disorder, persecutory type, continuous Status: Chronic (2) Bipolar 1 disorder with moderate ravi Status: Chronic (3) Cannabis use disorder, severe, in controlled environment Status: Chronic (4) Stimulant use disorder Status: Chronic Condition 1. continue treatment. 2. increase lithium. 3. await hearing. MARINA ARAGON MD Dec 07, 2017 11:33
[2017-12-07] MEDS: NICOTINE INH SYSTEM 10 MG/INH INH PRN ×2 (12:11→17:58)
[2017-12-07 15:03] VITALS: BP 121/85
[2017-12-07] MEDS: OLANZapine 5 MG TAB PO SCH (20:42)
[2017-12-07 21:12] VITALS: BP 122/74
[2017-12-08 04:17] VITALS: BP 110/76
[2017-12-08] MEDS: MULTIVITAMINS PO SCH (08:29)
[2017-12-08] MEDS: LITHIUM CARBONATE 300 MG CAP PO SCH ×2 (08:29→20:17)
--- NOTE | 2017-12-08 08:43 | BHS Progress Note ---
[facility] - Subjective Progress Notes Subjective "Do you think they will give me a second chance?" Patient aware of upcoming court hearing and becomes frustrated when thinking she may be legally forced to further treatment. Patient overall remains calm and cooperative on the unit, with underlying persecutory type delusions present, but they seem dampened to some degree by current medication regimen. Patient's appetite is good and sleep is intact, will continue current medications, and await hearing. Suicidal Ideation: None Homicidal Ideation: None [facility] - Objective Physical Exam Muscle Strength and Tone: WNL Gait and Station: Steady [facility] Medications Reviewed: Side Effects, Benefits of Medication, Risks Allergies Reviewed: Yes Mental Status Exam General Appearance: Casual, Well Groomed, Good Eye Contact, Cooperative, Polite , Good Interaction, No Tearful, No Psychomotor Agitation, No Psychomotor Retardation, No Bizarre Mannerisms, No Tics Speech: Clear, Spontaneous, Normal Rate, Normal Rhythm, Normal Volume, Normal Tone, No Delayed, No Slurred, No Garbled, No Rambling Mood: Dysthmic/Depressed (frustrated with being placed in hospital. ) Affect: Full and Appropriate, Calm, Neutral, Tearful (Tearful when talks of losing son as taken away from her ), Agitated (last pm hitting self) Thought Process: Organized, Logical, No Loose Associations (ongoing) Thought Content: No Suicidal Ideation, No Homicidal Ideation, Delusions, Auditory Halllucinations, No Visual Hallucinations, Ideas of Reference, No Obsessions Sensorium: Clear Cognition: Alert & Oriented-Person, Alert & Oriented-Place, Alert & Oriented- Time, No Eimcb-Ogyanqqs-Aovtudkar (partially) Memory: Immediate, Recent, Remote Intelligence: Average Insight Judgment: Poor (maladaptive stress coping mechanisms, underlying delusional disorder. ) [facility] Assessment and Plan Apcf-or-Ihiw Encounter Date: Dec 08, 2017 Zvfn-ln-Wikb Encounter Time: 08:40 [facility] Plan: Necessary Precautions, Individual/Group Therapy, Admin/Titrate Meds, Educate Patient Tobacco Medications: Not Appropriate Condition Multpiple Antipsychotics Used: No Problems: (1) Delusional disorder, persecutory type, continuous Status: Chronic (2) Bipolar 1 disorder with moderate ravi Status: Chronic (3) Cannabis use disorder, severe, in controlled environment Status: Chronic (4) Stimulant use disorder Status: Chronic Condition 1. Will continue treatment. 2. await hearing. 3. No medication changes today. MARINA ARAGON MD Dec 08, 2017 08:43
[2017-12-08 10:14] VITALS: BP 122/96
[2017-12-08] MEDS: NICOTINE INH SYSTEM 10 MG/INH INH PRN (18:05)
[2017-12-08] MEDS: OLANZapine 5 MG TAB PO SCH (20:17)
[2017-12-08 21:32] VITALS: BP 108/76
[2017-12-09 04:38] VITALS: BP 105/76
[2017-12-09] MEDS: LITHIUM CARBONATE 300 MG CAP PO SCH ×2 (08:29→20:52)
[2017-12-09] MEDS: MULTIVITAMINS PO SCH (08:29)
--- NOTE | 2017-12-09 11:49 | BHS Progress Note ---
[facility] - Subjective Progress Notes Subjective Patient tolerant of court hearing today, requiring her to remain on the unit. Will consider injectable anti-psychotic, depending on eventual disposition of this patient, who remains calm on the unit. Underlying delusional disorder symptomatology continues but seems more repressed with continued medications. sleep good, and appetite intact. No other concerns. Suicidal Ideation: None Homicidal Ideation: None [facility] - Objective Physical Exam Vital Signs Vital Signs Date Time Temp Pulse Resp B/P (MAP) Pulse Ox O2 Delivery O2 Flow Rate FiO2 12/09/17 04:38 98.3 110 16 105/76 (86) 96 Room Air Hematology Test 12/07/17 05:34 [place] Level 0.3 mmol/L (0.6-1.2) Chemistry Test 12/07/17 05:34 [place] Level 0.3 mmol/L (0.6-1.2) Toxicology Test 12/07/17 05:34 [place] Level 0.3 mmol/L (0.6-1.2) Muscle Strength and Tone: WNL Gait and Station: Steady [facility] Medications Reviewed: Side Effects, Benefits of Medication, Risks Allergies Reviewed: Yes Mental Status Exam General Appearance: Casual, Well Groomed, Good Eye Contact, Cooperative, Polite , Good Interaction, No Tearful, No Psychomotor Agitation, No Psychomotor Retardation, No Bizarre Mannerisms, No Tics Speech: Clear, Spontaneous, Normal Rate, Normal Rhythm, Normal Volume, Normal Tone, No Delayed, No Slurred, No Garbled, No Rambling Mood: Dysthmic/Depressed (frustrated with being placed in hospital. ) Affect: Full and Appropriate, Calm, Neutral, Tearful (Tearful when talks of losing son as taken away from her ), Agitated (last pm hitting self) Thought Process: Organized, Logical, No Loose Associations (ongoing) Thought Content: No Suicidal Ideation, No Homicidal Ideation, Delusions, Auditory Halllucinations, No Visual Hallucinations, Ideas of Reference, No Obsessions Sensorium: Clear Cognition: Alert & Oriented-Person, Alert & Oriented-Place, Alert & Oriented- Time, No Gbicz-Gnlcbkxj-Ftlhsvewn (partially) Memory: Immediate, Recent, Remote Intelligence: Average Insight Judgment: Poor (maladaptive stress coping mechanisms, underlying delusional disorder. ) [facility] Assessment and Plan Fboj-mi-Eygq Encounter Date: Dec 09, 2017 Dpcn-zf-Znwr Encounter Time: 09:00 [facility] Plan: Necessary Precautions, Individual/Group Therapy, Admin/Titrate Meds, Educate Patient Tobacco Medications: Not Appropriate Condition Multpiple Antipsychotics Used: No Problems: (1) Delusional disorder, persecutory type, continuous Status: Chronic (2) Bipolar 1 disorder with moderate ravi Status: Chronic (3) Cannabis use disorder, severe, in controlled environment Status: Chronic (4) Stimulant use disorder Status: Chronic Condition 1. continue treatment. 2. labwork in AM. MARINA ARAGON MD Dec 09, 2017 11:49
[2017-12-09] MEDS: OLANZapine 5 MG TAB PO SCH (20:52)
[2017-12-09] MEDS: NICOTINE INH SYSTEM 10 MG/INH INH PRN (20:56)
[2017-12-10 03:17] VITALS: BP 104/85
[2017-12-10 06:45] LABS: PLATELET COUNT, AUTOMATED 216 K/uL (150-450)
[2017-12-10] MEDS: MULTIVITAMINS PO SCH (08:59)
[2017-12-10] MEDS: LITHIUM CARBONATE 300 MG CAP PO SCH ×2 (08:59→20:48)
--- NOTE | 2017-12-10 09:57 | BHS Progress Note ---
[facility] - Subjective Progress Notes Subjective Patient remains very pleasant and cooperative, with minimal verbalizations of underlying persecutory delusions. Sleep and appetite intact, lithium level today 0.5. No evidence of ravi, waiting on disposition to consider halfway injectable anti-psychotic. No other concerns. Suicidal Ideation: None Homicidal Ideation: None [facility] - Objective Physical Exam Vital Signs Vital Signs Date Time Temp Pulse Resp B/P (MAP) Pulse Ox O2 Delivery O2 Flow Rate FiO2 12/10/17 03:17 98.0 104 16 104/85 (91) 94 Room Air Hematology Test 12/10/17 06:26 Red Blood Count 5.19 M/uL (4.17-5.56) Mean Corpuscular Volume 90.6 fL (80.0-96.0) Mean Corpuscular Hemoglobin 30.7 pg (26.0-33.0) Mean Corpuscular Hemoglobin Concent 33.9 g/dL (32.0-36.0) Red Cell Distribution Width 13.7 % (11.5-14.5) Mean Platelet Volume 9.8 fL (7.2-11.1) Neutrophils (%) (Auto) 50.0 % (39.4-72.5) Lymphocytes (%) (Auto) 36.1 % (17.6-49.6) Monocytes (%) (Auto) 10.1 % (4.1-12.4) Eosinophils (%) (Auto) 2.9 % (0.4-6.7) Basophils (%) (Auto) 0.9 % (0.3-1.4) Nucleated RBC Relative Count (auto) 0.0 /100WBC Neutrophils # (Auto) 3.0 K/uL (2.0-7.4) Lymphocytes # (Auto) 2.1 K/uL (1.3-3.6) Monocytes # (Auto) 0.6 K/uL (0.3-1.0) Eosinophils # (Auto) 0.2 K/uL (0.0-0.5) Basophils # (Auto) 0.1 K/uL (0.0-0.1) Nucleated RBC Absolute Count (auto) 0.00 K/uL Sodium Level 141 mmol/L (137-145) Potassium Level 4.5 mmol/L (3.5-5.0) Chloride Level 105 mmol/L (98-107) Carbon Dioxide Level 25 mmol/L (22-31) Blood Urea Nitrogen 10 mg/dl (7-18) Creatinine 0.60 mg/dl (0.52-1.04) Glomerular Filtration Rate Calc > 60.0 Random Glucose 89 mg/dl (75-110) Calcium Level 9.9 mg/dl (8.4-10.2) Total Bilirubin 0.5 mg/dl (0.2-1.3) Aspartate Amino Transf (AST/SGOT) 27 U/L (0-35) Alanine Aminotransferase (ALT/SGPT) 44 U/L (0-56) Alkaline Phosphatase 70 U/L (0-126) Total Protein 6.9 gm/dl (6.3-8.2) Albumin 3.7 g/dl (3.5-5.0) [place] Level 0.5 mmol/L (0.6-1.2) Chemistry Test 12/10/17 06:26 White Blood Count 5.9 k/uL (4.5-11.0) Red Blood Count 5.19 M/uL (4.17-5.56) Hemoglobin 15.9 g/dL (12.0-16.0) Hematocrit 47.0 % (34.0-47.0) Mean Corpuscular Volume 90.6 fL (80.0-96.0) Mean Corpuscular Hemoglobin 30.7 pg (26.0-33.0) Mean Corpuscular Hemoglobin Concent 33.9 g/dL (32.0-36.0) Red Cell Distribution Width 13.7 % (11.5-14.5) Platelet Count 216 K/uL (150-450) Mean Platelet Volume 9.8 fL (7.2-11.1) Neutrophils (%) (Auto) 50.0 % (39.4-72.5) Lymphocytes (%) (Auto) 36.1 % (17.6-49.6) Monocytes (%) (Auto) 10.1 % (4.1-12.4) Eosinophils (%) (Auto) 2.9 % (0.4-6.7) Basophils (%) (Auto) 0.9 % (0.3-1.4) Nucleated RBC Relative Count (auto) 0.0 /100WBC Neutrophils # (Auto) 3.0 K/uL (2.0-7.4) Lymphocytes # (Auto) 2.1 K/uL (1.3-3.6) Monocytes # (Auto) 0.6 K/uL (0.3-1.0) Eosinophils # (Auto) 0.2 K/uL (0.0-0.5) Basophils # (Auto) 0.1 K/uL (0.0-0.1) Nucleated RBC Absolute Count (auto) 0.00 K/uL Glomerular Filtration Rate Calc > 60.0 Calcium Level 9.9 mg/dl (8.4-10.2) Total Bilirubin 0.5 mg/dl (0.2-1.3) Aspartate Amino Transf (AST/SGOT) 27 U/L (0-35) Alanine Aminotransferase (ALT/SGPT) 44 U/L (0-56) Alkaline Phosphatase 70 U/L (0-126) Total Protein 6.9 gm/dl (6.3-8.2) Albumin 3.7 g/dl (3.5-5.0) [place] Level 0.5 mmol/L (0.6-1.2) Toxicology Test 12/10/17 06:26 [place] Level 0.5 mmol/L (0.6-1.2) Muscle Strength and Tone: WNL Gait and Station: Steady [facility] Medications Reviewed: Side Effects, Benefits of Medication, Risks Allergies Reviewed: Yes Mental Status Exam General Appearance: Casual, Well Groomed, Good Eye Contact, Cooperative, Polite , Good Interaction, No Tearful, No Psychomotor Agitation, No Psychomotor Retardation, No Bizarre Mannerisms, No Tics Speech: Clear, Spontaneous, Normal Rate, Normal Rhythm, Normal Volume, Normal Tone, No Delayed, No Slurred, No Garbled, No Rambling Mood: Dysthmic/Depressed (frustrated with being placed in hospital. ) Affect: Full and Appropriate, Calm, Neutral, No Tearful, No Anxious, No Agitated Thought Process: Organized, Logical, Loose Associations (ongoing but less now, ) Thought Content: No Suicidal Ideation, No Homicidal Ideation, Delusions, Auditory Halllucinations, No Visual Hallucinations, Ideas of Reference, No Obsessions, No Compulsions Sensorium: Clear Cognition: Alert & Oriented-Person, Alert & Oriented-Place, Alert & Oriented- Time, No Cyqeh-Xggbqwrq-Wjnuhaoue (partially) Memory: Immediate, Recent, Remote Intelligence: Average Insight Judgment: Poor (maladaptive stress coping mechanisms, underlying delusional disorder, high likelyhood of relapse into drug use. ) Result Diagram: 12/10/1762512/10/17625 [facility] Assessment and Plan Wqts-cy-Xupz Encounter Date: Dec 10, 2017 Nvab-fg-Vlcu Encounter Time: 09:00 [facility] Plan: Necessary Precautions, Individual/Group Therapy, Admin/Titrate Meds, Educate Patient Tobacco Medications: Not Appropriate Condition Multpiple Antipsychotics Used: No Problems: (1) Delusional disorder, persecutory type, continuous Status: Chronic (2) Bipolar 1 disorder with moderate ravi Status: Chronic (3) Cannabis use disorder, severe, in controlled environment Status: Chronic (4) Stimulant use disorder Status: Chronic Condition 1. continue treatment. 2. no medication changes. MARINA ARAGON MD Dec 10, 2017 09:57
[2017-12-10] MEDS: OLANZapine 5 MG TAB PO SCH (20:48)
[2017-12-10] MEDS: NICOTINE INH SYSTEM 10 MG/INH INH PRN (20:53)
[2017-12-11 00:30] VITALS: BP 104/60
[2017-12-11] MEDS: LITHIUM CARBONATE 300 MG CAP PO SCH ×2 (08:04→20:54)
[2017-12-11] MEDS: MULTIVITAMINS PO SCH (08:04)
[2017-12-11 12:05] VITALS: BP 112/68
[2017-12-11] MEDS: NICOTINE INH SYSTEM 10 MG/INH INH PRN (20:54)
[2017-12-11] MEDS: OLANZapine 5 MG TAB PO SCH (20:55)
[2017-12-11 23:00] VITALS: BP 118/64
[2017-12-12] MEDS: MULTIVITAMINS PO SCH (08:21)
[2017-12-12] MEDS: LITHIUM CARBONATE 300 MG CAP PO SCH ×2 (08:22→20:32)
--- NOTE | 2017-12-12 11:24 | BHS Progress Note ---
[facility] - Subjective Progress Notes Subjective "They are working on an apartment for me. I can take care of myself. There's a lot of voices hanging out there but I'm able to block it out. My mind goes a lot of places. 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 I'm not a fan of this administration. We are in the middle of an fucking mind war." Tearful as discusses symptoms and "when my mind goes there" Patient interacting well with team members, cooperative on unit, sleeping and eating well. Consideration of applications support lead injectable anti-psychotic, apartment versus long-term with outpatient MH services. Treatment team 12/12/17 Suicidal Ideation: None Homicidal Ideation: None [facility] - Objective Physical Exam Vital Signs Vital Signs Date Time Temp Pulse Resp B/P (MAP) Pulse Ox O2 Delivery O2 Flow Rate FiO2 12/11/17 23:00 97.6 75 118/64 (82) 96 Room Air 12/11/17 12:05 16 Allergies Coded Allergies No Known Drug Allergies (Unverified12/02/17) Muscle Strength and Tone: WNL Gait and Station: Steady [facility] Medications Reviewed: Side Effects, Benefits of Medication, Risks Allergies Reviewed: Yes Mental Status Exam General Appearance: Casual, Well Groomed, Good Eye Contact, Cooperative, Polite , Good Interaction, No Tearful, No Psychomotor Agitation, No Psychomotor Retardation, No Bizarre Mannerisms, No Tics Speech: Clear, Spontaneous, Normal Rate, Normal Rhythm, Normal Volume, Normal Tone, No Delayed, No Slurred, No Garbled, No Rambling Mood: Dysthmic/Depressed (frustrated with being placed in hospital, tearful at times ) Affect: Full and Appropriate, Calm, Neutral, Tearful (when speaks of stress in mind), No Anxious, No Agitated Thought Process: Organized, Logical, Loose Associations (ongoing but less now, ) Thought Content: No Suicidal Ideation, No Homicidal Ideation, Delusions, Auditory Halllucinations, No Visual Hallucinations, Ideas of Reference, No Obsessions, No Compulsions Sensorium: Clear Cognition: Alert & Oriented-Person, Alert & Oriented-Place, Alert & Oriented- Time, No Iisgb-Sgjwhmag-Cjjpetere (partially) Memory: Immediate, Recent, Remote Intelligence: Average Insight Judgment: Poor (maladaptive stress coping mechanisms, underlying delusional disorder, high likelyhood of relapse into drug use. ) Result Diagram: 12/10/1762512/10/17 06 Lab Vital Signs Date Time Temp Pulse Resp B/P (MAP) Pulse Ox O2 Delivery O2 Flow Rate FiO2 12/11/17 23:00 97.6 75 118/64 (82) 96 Room Air 12/11/17 12:05 16 Microbiology Current Medications Medications (Trade) Dose Ordered Sig/Pedrito Route PRN Reason Start Time Stop Time Status Last Admin Dose Admin Acetaminophen (Tylenol(*)325 Mg Tab (Or Equiv)) 650 mg Q4H PRN PO HEADACHE 12/02/17 14:30 12/02/17 14:42 DC 12/02/17 14:38 Al Hydrox/Mg Hydrox/Simethicone (Maalox(*) 30 ml Udcup (Or Equiv)) 30 ml Q4H PRN PO DYSPEPSIA 12/02/17 14:30 01/01/18 14:29 Multivitamins (Thera-M Enhanced Tab (Or Equiv)) 1 each QDAY PO 12/03/17 09:00 01/02/18 08:59 12/12/17 08:21 Olanzapine (zyPREXA (OR EQUIV)) 10 mg QHS PO 12/03/17 21:00 12/03/17 21:00 DC Nicotine (Nicotrol Inhaler 10 Mg/Inh (Or Equiv)) 10 mg Q2H PRN INH NICOTINE REPLACEMENT 12/02/17 14:30 01/01/18 14:29 12/11/17 20:54 Miscellaneous Information (Nicotrol Cartridge) 1 each PRN PRN PO NICOTINE REPLACEMENT 12/02/17 14:30 01/01/18 14:29 12/02/17 14:38 Acetaminophen (Tylenol(*)325 Mg Tab (Or Equiv)) 650 mg Q4H PRN PO PAIN 12/02/17 14:45 01/01/18 14:44 Olanzapine (zyPREXA (OR EQUIV)) 10 mg NOW ONCE PO 12/02/17 17:00 12/02/17 17:09 DC 12/02/17 17:00 Olanzapine (zyPREXA (OR EQUIV)) 5 mg Q6H PRN PO anxiety 12/02/17 17:00 01/01/18 16:59 12/04/17 12:31 Borup Carbonate (Borup Carbonate 300 Mg Cap) 300 mg BID PO 12/02/17 21:00 12/07/17 06:22 DC 12/06/17 20:22 Olanzapine (zyPREXA (OR EQUIV)) 15 mg QHS PO 12/03/17 21:00 12/04/17 10:22 DC 12/03/17 20:15 Olanzapine (zyPREXA (OR EQUIV)) 20 mg QHS PO 12/04/17 21:00 01/03/18 20:59 12/11/17 20:55 Diphenhydramine HCl (Benadryl(*) 25 Mg Cap (Or Equiv)) 50 mg ONCE ONCE PO 12/04/17 20:15 12/04/17 20:16 DC 12/04/17 20:25 Lorazepam (Ativan(*) 1 Mg Tab (Or Equiv)) 2 mg ONCE ONCE PO 12/04/17 20:15 12/04/17 20:16 DC 12/04/17 20:25 Borup Carbonate (Borup Carbonate 300 Mg Cap) 300 mg QAM PO 12/07/17 09:00 01/06/18 08:59 12/12/17 08:22 Borup Carbonate (Borup Carbonate 300 Mg Cap) 600 mg QHS PO 12/07/17 21:00 01/06/18 20:59 12/11/17 20:54 [facility] Assessment and Plan Lvat-fg-Mswf Encounter Date: Dec 12, 2017 Nocq-rp-Rfln Encounter Time: 11:10 [facility] Plan: Necessary Precautions, Individual/Group Therapy, Admin/Titrate Meds, Educate Patient Tobacco Medications: Not Appropriate Condition Multpiple Antipsychotics Used: No Problems: (1) Bipolar 1 disorder with moderate ravi Status: Chronic (2) Delusional disorder, persecutory type, continuous Status: Chronic (3) Cannabis use disorder, severe, in controlled environment Status: Chronic (4) Stimulant use disorder Status: Chronic Condition Continue current medications and treatment Ongoing discharge planning, seeking appropriate placement/outpatient care EILEEN LOPEZ NP Dec 12, 2017 11:24
[2017-12-12 13:20] VITALS: BP 102/64
[2017-12-12] MEDS: NICOTINE INH SYSTEM 10 MG/INH INH PRN (19:52)
[2017-12-12] MEDS: OLANZapine 5 MG TAB PO SCH (20:32)
[2017-12-13] MEDS: MULTIVITAMINS PO SCH (07:59)
[2017-12-13] MEDS: LITHIUM CARBONATE 300 MG CAP PO SCH ×2 (07:59→20:24)
--- NOTE | 2017-12-13 09:53 | BHS Progress Note ---
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, apartment versus [facility] versus [facility] Treatment team 12/12/17 Suicidal Ideation: None Homicidal Ideation: None [facility] - Objective Physical Exam Muscle Strength and Tone: WNL Gait and Station: Steady S Medications Reviewed: Side Effects, Benefits of Medication, Risks Allergies Reviewed: Yes Mental Status Exam General Appearance: Casual, Well Groomed, Good Eye Contact, Cooperative, Polite , Good Interaction, No Tearful, No Psychomotor Agitation, No Psychomotor Retardation, No Bizarre Mannerisms, No Tics Speech: Clear, Spontaneous, Normal Rate, Normal Rhythm, Normal Volume, Normal Tone, No Delayed, No Slurred, No Garbled, No Rambling Mood: No Dysthmic/Depressed (frustrated with lengthy hospitalization), Euthymic Affect: Full and Appropriate, Calm, Neutral, Tearful (no tearfulness 12/13/17), No Anxious, No Agitated Thought Process: Organized, Logical, Loose Associations (ongoing but less now, ) Thought Content: No Suicidal Ideation, No Homicidal Ideation, Delusions, Auditory Halllucinations, No Visual Hallucinations, Ideas of Reference, No Obsessions, No Compulsions Sensorium: Clear Cognition: Alert & Oriented-Person, Alert & Oriented-Place, Alert & Oriented- Time, No Iaivz-Qmfsmecw-Vtadlrngc (partially) Memory: Immediate, Recent, Remote Intelligence: Average Insight Judgment: Poor (maladaptive stress coping mechanisms, underlying delusional disorder, high likelyhood of relapse into drug use. ) Result Diagram: 12/10/17 0626 12/10/17 06 Lab Allergies Coded Allergies No Known Drug Allergies (Unverified12/02/17) Imaging Vital Signs Date Time Temp Pulse Resp B/P (MAP) Pulse Ox O2 Delivery O2 Flow Rate FiO2 12/12/17 13:20 99.2 106 16 102/64 (77) 96 Room Air S Assessment and Plan Nlgk-hw-Btlt Encounter Date: Dec 13, 2017 Xvkj-tt-Ansa Encounter Time: 09:53 [facility] Plan: Necessary Precautions, Individual/Group Therapy, Admin/Titrate Meds, Educate Patient Tobacco Medications: Not Appropriate Condition Multpiple Antipsychotics Used: No Problems: (1) Bipolar 1 disorder with moderate ravi Status: Chronic (2) Delusional disorder, persecutory type, continuous Status: Chronic (3) Cannabis use disorder, severe, in controlled environment Status: Chronic (4) Stimulant use disorder Status: Chronic Condition Continue precautions Continue current medications and treatment Treatment team 12/13/17 EILEEN LOPEZ NP Dec 13, 2017 09:53
[2017-12-13 13:50] VITALS: BP 98/62
[2017-12-13] MEDS: NICOTINE INH SYSTEM 10 MG/INH INH PRN (18:28)
[2017-12-13] MEDS: OLANZapine 5 MG TAB PO SCH (20:24)
[2017-12-14 05:26] VITALS: BP 94/54
[2017-12-14] MEDS: MULTIVITAMINS PO SCH (08:14)
[2017-12-14] MEDS: LITHIUM CARBONATE 300 MG CAP PO SCH ×2 (08:14→19:12)
[2017-12-14 10:05] VITALS: BP 106/84
--- NOTE | 2017-12-14 11:11 | BHS Progress Note ---
BHS - Subjective Progress Notes Subjective Patient calm and compliant with treatment, polite, stating she "needs to take her medications" while outside of the hospital, because they "help" with symptomatology. Appetite good, patient able to cooperatively go for walks outside of the hospital when staff are available for escort. Notably cooperative and pleasant on walks but is noted to comment on jet trails in [place] and any dust blowing around. Patient frustrated from being on the unit, but remains pleasant. Underlying persecutory type delusions, continue, but seem less in the forefront these days. Suicidal Ideation: None Homicidal Ideation: None S - Objective Physical Exam Vital Signs Vital Signs Date Time Temp Pulse Resp B/P (MAP) Pulse Ox O2 Delivery O2 Flow Rate FiO2 12/14/17 10:05 97.7 93 106/84 (91) 96 Room Air 12/14/17 05:26 16 Hematology Test 12/10/17 06:26 Red Blood Count 5.19 M/uL (4.17-5.56) Mean Corpuscular Volume 90.6 fL (80.0-96.0) Mean Corpuscular Hemoglobin 30.7 pg (26.0-33.0) Mean Corpuscular Hemoglobin Concent 33.9 g/dL (32.0-36.0) Red Cell Distribution Width 13.7 % (11.5-14.5) Mean Platelet Volume 9.8 fL (7.2-11.1) Neutrophils (%) (Auto) 50.0 % (39.4-72.5) Lymphocytes (%) (Auto) 36.1 % (17.6-49.6) Monocytes (%) (Auto) 10.1 % (4.1-12.4) Eosinophils (%) (Auto) 2.9 % (0.4-6.7) Basophils (%) (Auto) 0.9 % (0.3-1.4) Nucleated RBC Relative Count (auto) 0.0 /100WBC Neutrophils # (Auto) 3.0 K/uL (2.0-7.4) Lymphocytes # (Auto) 2.1 K/uL (1.3-3.6) Monocytes # (Auto) 0.6 K/uL (0.3-1.0) Eosinophils # (Auto) 0.2 K/uL (0.0-0.5) Basophils # (Auto) 0.1 K/uL (0.0-0.1) Nucleated RBC Absolute Count (auto) 0.00 K/uL Sodium Level 141 mmol/L (137-145) Potassium Level 4.5 mmol/L (3.5-5.0) Chloride Level 105 mmol/L (98-107) Carbon Dioxide Level 25 mmol/L (22-31) Blood Urea Nitrogen 10 mg/dl (7-18) Creatinine 0.60 mg/dl (0.52-1.04) Glomerular Filtration Rate Calc > 60.0 Random Glucose 89 mg/dl (75-110) Calcium Level 9.9 mg/dl (8.4-10.2) Total Bilirubin 0.5 mg/dl (0.2-1.3) Aspartate Amino Transf (AST/SGOT) 27 U/L (0-35) Alanine Aminotransferase (ALT/SGPT) 44 U/L (0-56) Alkaline Phosphatase 70 U/L (0-126) Total Protein 6.9 gm/dl (6.3-8.2) Albumin 3.7 g/dl (3.5-5.0) [place] Level 0.5 mmol/L (0.6-1.2) Chemistry Test 12/10/17 06:26 White Blood Count 5.9 k/uL (4.5-11.0) Red Blood Count 5.19 M/uL (4.17-5.56) Hemoglobin 15.9 g/dL (12.0-16.0) Hematocrit 47.0 % (34.0-47.0) Mean Corpuscular Volume 90.6 fL (80.0-96.0) Mean Corpuscular Hemoglobin 30.7 pg (26.0-33.0) Mean Corpuscular Hemoglobin Concent 33.9 g/dL (32.0-36.0) Red Cell Distribution Width 13.7 % (11.5-14.5) Platelet Count 216 K/uL (150-450) Mean Platelet Volume 9.8 fL (7.2-11.1) Neutrophils (%) (Auto) 50.0 % (39.4-72.5) Lymphocytes (%) (Auto) 36.1 % (17.6-49.6) Monocytes (%) (Auto) 10.1 % (4.1-12.4) Eosinophils (%) (Auto) 2.9 % (0.4-6.7) Basophils (%) (Auto) 0.9 % (0.3-1.4) Nucleated RBC Relative Count (auto) 0.0 /100WBC Neutrophils # (Auto) 3.0 K/uL (2.0-7.4) Lymphocytes # (Auto) 2.1 K/uL (1.3-3.6) Monocytes # (Auto) 0.6 K/uL (0.3-1.0) Eosinophils # (Auto) 0.2 K/uL (0.0-0.5) Basophils # (Auto) 0.1 K/uL (0.0-0.1) Nucleated RBC Absolute Count (auto) 0.00 K/uL Glomerular Filtration Rate Calc > 60.0 Calcium Level 9.9 mg/dl (8.4-10.2) Total Bilirubin 0.5 mg/dl (0.2-1.3) Aspartate Amino Transf (AST/SGOT) 27 U/L (0-35) Alanine Aminotransferase (ALT/SGPT) 44 U/L (0-56) Alkaline Phosphatase 70 U/L (0-126) Total Protein 6.9 gm/dl (6.3-8.2) Albumin 3.7 g/dl (3.5-5.0) [place] Level 0.5 mmol/L (0.6-1.2) Toxicology Test 12/10/17 06:26 [place] Level 0.5 mmol/L (0.6-1.2) Muscle Strength and Tone: WNL Gait and Station: Steady [facility] Medications Reviewed: Side Effects, Benefits of Medication, Risks Allergies Reviewed: Yes Mental Status Exam General Appearance: Casual, Well Groomed, Good Eye Contact, Cooperative, Polite , Good Interaction, No Tearful, No Psychomotor Agitation, No Psychomotor Retardation, No Bizarre Mannerisms, No Tics Speech: Clear, Spontaneous, Normal Rate, Normal Rhythm, Normal Volume, Normal Tone, No Delayed, No Slurred, No Garbled, No Rambling Mood: No Dysthmic/Depressed (frustrated with lengthy hospitalization), Euthymic Affect: Full and Appropriate, Calm, Neutral, No Withdrawn, No Tearful, No Anxious, No Agitated Thought Process: Organized, Logical, Loose Associations (ongoing but less now, ), No Flight of Ideas Thought Content: No Suicidal Ideation, No Homicidal Ideation, Delusions, Auditory Halllucinations, No Visual Hallucinations, Ideas of Reference, No Obsessions, No Compulsions Sensorium: Clear Cognition: Alert & Oriented-Person, Alert & Oriented-Place, Alert & Oriented- Time, Qiluz-Flgqotgh-Iulriclhd (mostly) Memory: Immediate, Recent, Remote Intelligence: Average Insight Judgment: Poor (maladaptive stress coping mechanisms, underlying delusional disorder, high likelyhood of relapse into drug use. ) Result Diagram: 12/10/1762512/10/17625 [facility] Assessment and Plan Hysa-[id number] Encounter Date: Dec 14, 2017 Febj-[id number] Encounter Time: 09:40 [facility] Plan: Necessary Precautions, Individual/Group Therapy, Admin/Titrate Meds, Educate Patient Tobacco Medications: Not Appropriate Condition Multpiple Antipsychotics Used: No Problems: (1) Delusional disorder, persecutory type, continuous Status: Chronic (2) Bipolar 1 disorder with moderate ravi Status: Chronic (3) Cannabis use disorder, severe, in controlled environment Status: Chronic (4) Stimulant use disorder Status: Chronic Condition 1. will take evening medications earlier to promote earlier sleep. 2. continue treatment. MARINA ARAGON MD Dec 14, 2017 11:11
[2017-12-14] MEDS: OLANZapine 5 MG TAB PO PRN (14:32)
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
[2017-12-14] MEDS: OLANZapine 5 MG TAB PO SCH (19:12)
[2017-12-14] MEDS: NICOTINE INH SYSTEM 10 MG/INH INH PRN (19:13)
[2017-12-15 05:46] VITALS: BP 130/84
[2017-12-15] MEDS: MULTIVITAMINS PO SCH (10:50)
[2017-12-15] MEDS: LITHIUM CARBONATE 300 MG CAP PO SCH ×2 (10:50→19:30)
--- NOTE | 2017-12-15 11:40 | BHS Progress Note ---
BHS - Subjective Progress Notes Subjective Patient very compliant on the unit, and accepting of discussion regarding necessity of staying away from illicit substances, and maintaining prescription medication compliance. Mood okay today, but worried about upcoming hearing. Sleep and appetite good. Suicidal Ideation: None Homicidal Ideation: None BHS - Objective Physical Exam Vital Signs Vital Signs Date Time Temp Pulse Resp B/P (MAP) Pulse Ox O2 Delivery O2 Flow Rate FiO2 12/15/17 05:46 97.7 94 16 130/84 (99) 94 Room Air Hematology Test 12/10/17 06:26 Red Blood Count 5.19 M/uL (4.17-5.56) Mean Corpuscular Volume 90.6 fL (80.0-96.0) Mean Corpuscular Hemoglobin 30.7 pg (26.0-33.0) Mean Corpuscular Hemoglobin Concent 33.9 g/dL (32.0-36.0) Red Cell Distribution Width 13.7 % (11.5-14.5) Mean Platelet Volume 9.8 fL (7.2-11.1) Neutrophils (%) (Auto) 50.0 % (39.4-72.5) Lymphocytes (%) (Auto) 36.1 % (17.6-49.6) Monocytes (%) (Auto) 10.1 % (4.1-12.4) Eosinophils (%) (Auto) 2.9 % (0.4-6.7) Basophils (%) (Auto) 0.9 % (0.3-1.4) Nucleated RBC Relative Count (auto) 0.0 /100WBC Neutrophils # (Auto) 3.0 K/uL (2.0-7.4) Lymphocytes # (Auto) 2.1 K/uL (1.3-3.6) Monocytes # (Auto) 0.6 K/uL (0.3-1.0) Eosinophils # (Auto) 0.2 K/uL (0.0-0.5) Basophils # (Auto) 0.1 K/uL (0.0-0.1) Nucleated RBC Absolute Count (auto) 0.00 K/uL Sodium Level 141 mmol/L (137-145) Potassium Level 4.5 mmol/L (3.5-5.0) Chloride Level 105 mmol/L (98-107) Carbon Dioxide Level 25 mmol/L (22-31) Blood Urea Nitrogen 10 mg/dl (7-18) Creatinine 0.60 mg/dl (0.52-1.04) Glomerular Filtration Rate Calc > 60.0 Random Glucose 89 mg/dl (75-110) Calcium Level 9.9 mg/dl (8.4-10.2) Total Bilirubin 0.5 mg/dl (0.2-1.3) Aspartate Amino Transf (AST/SGOT) 27 U/L (0-35) Alanine Aminotransferase (ALT/SGPT) 44 U/L (0-56) Alkaline Phosphatase 70 U/L (0-126) Total Protein 6.9 gm/dl (6.3-8.2) Albumin 3.7 g/dl (3.5-5.0) [place] Level 0.5 mmol/L (0.6-1.2) Chemistry Test 12/10/17 06:26 White Blood Count 5.9 k/uL (4.5-11.0) Red Blood Count 5.19 M/uL (4.17-5.56) Hemoglobin 15.9 g/dL (12.0-16.0) Hematocrit 47.0 % (34.0-47.0) Mean Corpuscular Volume 90.6 fL (80.0-96.0) Mean Corpuscular Hemoglobin 30.7 pg (26.0-33.0) Mean Corpuscular Hemoglobin Concent 33.9 g/dL (32.0-36.0) Red Cell Distribution Width 13.7 % (11.5-14.5) Platelet Count 216 K/uL (150-450) Mean Platelet Volume 9.8 fL (7.2-11.1) Neutrophils (%) (Auto) 50.0 % (39.4-72.5) Lymphocytes (%) (Auto) 36.1 % (17.6-49.6) Monocytes (%) (Auto) 10.1 % (4.1-12.4) Eosinophils (%) (Auto) 2.9 % (0.4-6.7) Basophils (%) (Auto) 0.9 % (0.3-1.4) Nucleated RBC Relative Count (auto) 0.0 /100WBC Neutrophils # (Auto) 3.0 K/uL (2.0-7.4) Lymphocytes # (Auto) 2.1 K/uL (1.3-3.6) Monocytes # (Auto) 0.6 K/uL (0.3-1.0) Eosinophils # (Auto) 0.2 K/uL (0.0-0.5) Basophils # (Auto) 0.1 K/uL (0.0-0.1) Nucleated RBC Absolute Count (auto) 0.00 K/uL Glomerular Filtration Rate Calc > 60.0 Calcium Level 9.9 mg/dl (8.4-10.2) Total Bilirubin 0.5 mg/dl (0.2-1.3) Aspartate Amino Transf (AST/SGOT) 27 U/L (0-35) Alanine Aminotransferase (ALT/SGPT) 44 U/L (0-56) Alkaline Phosphatase 70 U/L (0-126) Total Protein 6.9 gm/dl (6.3-8.2) Albumin 3.7 g/dl (3.5-5.0) [place] Level 0.5 mmol/L (0.6-1.2) Toxicology Test 12/10/17 06:26 [place] Level 0.5 mmol/L (0.6-1.2) Muscle Strength and Tone: WNL Gait and Station: Steady [facility] Medications Reviewed: Side Effects, Benefits of Medication, Risks Allergies Reviewed: Yes Mental Status Exam General Appearance: Casual, Well Groomed, Good Eye Contact, Cooperative, Polite , Good Interaction, No Tearful, No Psychomotor Agitation, No Psychomotor Retardation, No Bizarre Mannerisms, No Tics Speech: Clear, Spontaneous, Normal Rate, Normal Rhythm, Normal Volume, Normal Tone, No Delayed, No Slurred, No Garbled, No Rambling Mood: No Dysthmic/Depressed (Frustrated with lengthy hospitalization), Euthymic Affect: Full and Appropriate, Calm, Neutral, No Withdrawn, No Tearful, No Anxious, No Agitated Thought Process: Organized, Logical, Goal Directed (wants to discharge to hotel. ), Loose Associations (Ongoing, but less now.), No Flight of Ideas Thought Content: No Suicidal Ideation, No Homicidal Ideation, Delusions, Auditory Halllucinations, No Visual Hallucinations, No Thought Broadcasting, Ideas of Reference, No Obsessions, No Compulsions Sensorium: Clear Cognition: Alert & Oriented-Person, Alert & Oriented-Place, Alert & Oriented- Time, Qjvds-Mxxuechd-Kzviiatyr (Mostly) Memory: Immediate, Recent, Remote Intelligence: Average Insight Judgment: Poor (maladaptive stress coping mechanisms, underlying delusional disorder, high likelihood of relapse into drug use.) [facility] Assessment and Plan [id number] Encounter Date: December 15, 2017 [id number] Encounter Time: 11:30 [facility] Plan: Necessary Precautions, Individual/Group Therapy, Admin/Titrate Meds, Educate Patient Tobacco Medications: Not Appropriate Condition Multpiple Antipsychotics Used: No Problems: (1) Delusional disorder, persecutory type, continuous Status: Chronic (2) Bipolar 1 disorder with moderate ravi Status: Chronic (3) Cannabis use disorder, severe, in controlled environment Status: Chronic (4) Stimulant use disorder Status: Chronic Condition 1. no medication changes. 2. continue treatment. 3. await hearing. MARINA ARAGON MD December 15, 2017 11:40
[2017-12-15] MEDS: NICOTINE INH SYSTEM 10 MG/INH INH PRN (19:30)
[2017-12-15] MEDS: OLANZapine 5 MG TAB PO SCH (19:30)
[2017-12-16 03:43] VITALS: BP 93/72
[2017-12-16] MEDS: MULTIVITAMINS PO SCH (08:13)
[2017-12-16] MEDS: LITHIUM CARBONATE 300 MG CAP PO SCH ×2 (08:13→19:35)
--- NOTE | 2017-12-16 10:10 | BHS Progress Note ---
BHS - Subjective Progress Notes Subjective Patient continues to be very cooperative on the unit, underlying persecutory delusions continue to surface from time to time, but patient is redirectable. Will continue treatment, and awaiting court decision on placement for this patient who has failed a previous outpatient commitment. Appetite, and sleep good. Patient able to care for ADL's. No medication changes today. Suicidal Ideation: None Homicidal Ideation: None [facility] - Objective Physical Exam Vital Signs Vital Signs Date Time Temp Pulse Resp B/P (MAP) Pulse Ox O2 Delivery O2 Flow Rate FiO2 12/16/17 03:43 97.6 112 16 93/72 (79) 94 Room Air Hematology Test 12/10/17 06:26 Red Blood Count 5.19 M/uL (4.17-5.56) Mean Corpuscular Volume 90.6 fL (80.0-96.0) Mean Corpuscular Hemoglobin 30.7 pg (26.0-33.0) Mean Corpuscular Hemoglobin Concent 33.9 g/dL (32.0-36.0) Red Cell Distribution Width 13.7 % (11.5-14.5) Mean Platelet Volume 9.8 fL (7.2-11.1) Neutrophils (%) (Auto) 50.0 % (39.4-72.5) Lymphocytes (%) (Auto) 36.1 % (17.6-49.6) Monocytes (%) (Auto) 10.1 % (4.1-12.4) Eosinophils (%) (Auto) 2.9 % (0.4-6.7) Basophils (%) (Auto) 0.9 % (0.3-1.4) Nucleated RBC Relative Count (auto) 0.0 /100WBC Neutrophils # (Auto) 3.0 K/uL (2.0-7.4) Lymphocytes # (Auto) 2.1 K/uL (1.3-3.6) Monocytes # (Auto) 0.6 K/uL (0.3-1.0) Eosinophils # (Auto) 0.2 K/uL (0.0-0.5) Basophils # (Auto) 0.1 K/uL (0.0-0.1) Nucleated RBC Absolute Count (auto) 0.00 K/uL Sodium Level 141 mmol/L (137-145) Potassium Level 4.5 mmol/L (3.5-5.0) Chloride Level 105 mmol/L (98-107) Carbon Dioxide Level 25 mmol/L (22-31) Blood Urea Nitrogen 10 mg/dl (7-18) Creatinine 0.60 mg/dl (0.52-1.04) Glomerular Filtration Rate Calc > 60.0 Random Glucose 89 mg/dl (75-110) Calcium Level 9.9 mg/dl (8.4-10.2) Total Bilirubin 0.5 mg/dl (0.2-1.3) Aspartate Amino Transf (AST/SGOT) 27 U/L (0-35) Alanine Aminotransferase (ALT/SGPT) 44 U/L (0-56) Alkaline Phosphatase 70 U/L (0-126) Total Protein 6.9 gm/dl (6.3-8.2) Albumin 3.7 g/dl (3.5-5.0) [place] Level 0.5 mmol/L (0.6-1.2) Chemistry Test 12/10/17 06:26 White Blood Count 5.9 k/uL (4.5-11.0) Red Blood Count 5.19 M/uL (4.17-5.56) Hemoglobin 15.9 g/dL (12.0-16.0) Hematocrit 47.0 % (34.0-47.0) Mean Corpuscular Volume 90.6 fL (80.0-96.0) Mean Corpuscular Hemoglobin 30.7 pg (26.0-33.0) Mean Corpuscular Hemoglobin Concent 33.9 g/dL (32.0-36.0) Red Cell Distribution Width 13.7 % (11.5-14.5) Platelet Count 216 K/uL (150-450) Mean Platelet Volume 9.8 fL (7.2-11.1) Neutrophils (%) (Auto) 50.0 % (39.4-72.5) Lymphocytes (%) (Auto) 36.1 % (17.6-49.6) Monocytes (%) (Auto) 10.1 % (4.1-12.4) Eosinophils (%) (Auto) 2.9 % (0.4-6.7) Basophils (%) (Auto) 0.9 % (0.3-1.4) Nucleated RBC Relative Count (auto) 0.0 /100WBC Neutrophils # (Auto) 3.0 K/uL (2.0-7.4) Lymphocytes # (Auto) 2.1 K/uL (1.3-3.6) Monocytes # (Auto) 0.6 K/uL (0.3-1.0) Eosinophils # (Auto) 0.2 K/uL (0.0-0.5) Basophils # (Auto) 0.1 K/uL (0.0-0.1) Nucleated RBC Absolute Count (auto) 0.00 K/uL Glomerular Filtration Rate Calc > 60.0 Calcium Level 9.9 mg/dl (8.4-10.2) Total Bilirubin 0.5 mg/dl (0.2-1.3) Aspartate Amino Transf (AST/SGOT) 27 U/L (0-35) Alanine Aminotransferase (ALT/SGPT) 44 U/L (0-56) Alkaline Phosphatase 70 U/L (0-126) Total Protein 6.9 gm/dl (6.3-8.2) Albumin 3.7 g/dl (3.5-5.0) [place] Level 0.5 mmol/L (0.6-1.2) Toxicology Test 12/10/17 06:26 [place] Level 0.5 mmol/L (0.6-1.2) Muscle Strength and Tone: WNL Gait and Station: Steady [facility] Medications Reviewed: Side Effects, Benefits of Medication, Risks Allergies Reviewed: Yes Mental Status Exam General Appearance: Casual, Well Groomed, Good Eye Contact, Cooperative, Polite , Good Interaction, No Tearful, No Psychomotor Agitation, No Psychomotor Retardation, No Bizarre Mannerisms, No Tics Speech: Clear, Spontaneous, Normal Rate, Normal Rhythm, Normal Volume, Normal Tone, No Delayed, No Slurred, No Garbled, No Rambling Mood: No Dysthmic/Depressed (Frustrated with lengthy hospitalization), Euthymic Affect: Full and Appropriate, Calm, Neutral, No Withdrawn, No Tearful, No Anxious, No Agitated Thought Process: Organized, Logical, Goal Directed (wants to discharge to hotel. ), Loose Associations (Ongoing, but less now.), No Flight of Ideas Thought Content: No Suicidal Ideation, No Homicidal Ideation, Delusions ( ongoing but more subdued), Auditory Halllucinations (likely present to some degree, rule out schizoaffective disorder ), No Visual Hallucinations, No Thought Broadcasting, Ideas of Reference, No Obsessions, No Compulsions Sensorium: Clear Cognition: Alert & Oriented-Person, Alert & Oriented-Place, Alert & Oriented- Time, Aunpq-Emjxcjuj-Tozwhkvlx (Mostly) Memory: Immediate, Recent, Remote Intelligence: Average Insight Judgment: Poor (maladaptive stress coping mechanisms, underlying delusional disorder, high likelihood of relapse into drug use.) [facility] Assessment and Plan Kzqv-[id number]-[id number] Encounter Date: December 16, 2017 Xwzm-[id number] Encounter Time: 09:30 [facility] Plan: Necessary Precautions, Individual/Group Therapy, Admin/Titrate Meds, Educate Patient Tobacco Medications: Not Appropriate Condition Multpiple Antipsychotics Used: No Problems: (1) Delusional disorder, persecutory type, continuous Status: Chronic (2) Bipolar 1 disorder with moderate ravi Status: Chronic (3) Cannabis use disorder, severe, in controlled environment Status: Chronic (4) Stimulant use disorder Status: Chronic Condition 1. continue treatment. 2. no medication changes. 3. await court evaluation of legal concerns, and potential scheduling of hearing. MARINA ARAGON MD December 16, 2017 10:09
[2017-12-16] MEDS: OLANZapine 5 MG TAB PO PRN (15:45)
[2017-12-16] MEDS: NICOTINE INH SYSTEM 10 MG/INH INH PRN (18:04)
[2017-12-16] MEDS: OLANZapine 5 MG TAB PO SCH (19:35)
[2017-12-17 03:39] VITALS: BP 97/73
[2017-12-17] MEDS: LITHIUM CARBONATE 300 MG CAP PO SCH ×2 (08:54→18:37)
[2017-12-17] MEDS: MULTIVITAMINS PO SCH (08:54)
[2017-12-17] MEDS: NICOTINE INH SYSTEM 10 MG/INH INH PRN (10:24)
--- NOTE | 2017-12-17 12:10 | BHS Progress Note ---
BHS - Subjective Progress Notes Subjective Patient remains calm and cooperative, and interacting well on the unit. Patient notably able to work with her significant other and rectify a problem with her bank card. Appetite and sleep remain intact, patient states no negative side effects from current medications. No other concerns, continue treatment, await court direction. Suicidal Ideation: None Homicidal Ideation: None [facility] - Objective Physical Exam Vital Signs Vital Signs Date Time Temp Pulse Resp B/P (MAP) Pulse Ox O2 Delivery O2 Flow Rate FiO2 12/17/17 03:39 97.4 102 15 97/73 (81) 94 Room Air Hematology Test 12/10/17 06:26 Red Blood Count 5.19 M/uL (4.17-5.56) Mean Corpuscular Volume 90.6 fL (80.0-96.0) Mean Corpuscular Hemoglobin 30.7 pg (26.0-33.0) Mean Corpuscular Hemoglobin Concent 33.9 g/dL (32.0-36.0) Red Cell Distribution Width 13.7 % (11.5-14.5) Mean Platelet Volume 9.8 fL (7.2-11.1) Neutrophils (%) (Auto) 50.0 % (39.4-72.5) Lymphocytes (%) (Auto) 36.1 % (17.6-49.6) Monocytes (%) (Auto) 10.1 % (4.1-12.4) Eosinophils (%) (Auto) 2.9 % (0.4-6.7) Basophils (%) (Auto) 0.9 % (0.3-1.4) Nucleated RBC Relative Count (auto) 0.0 /100WBC Neutrophils # (Auto) 3.0 K/uL (2.0-7.4) Lymphocytes # (Auto) 2.1 K/uL (1.3-3.6) Monocytes # (Auto) 0.6 K/uL (0.3-1.0) Eosinophils # (Auto) 0.2 K/uL (0.0-0.5) Basophils # (Auto) 0.1 K/uL (0.0-0.1) Nucleated RBC Absolute Count (auto) 0.00 K/uL Sodium Level 141 mmol/L (137-145) Potassium Level 4.5 mmol/L (3.5-5.0) Chloride Level 105 mmol/L (98-107) Carbon Dioxide Level 25 mmol/L (22-31) Blood Urea Nitrogen 10 mg/dl (7-18) Creatinine 0.60 mg/dl (0.52-1.04) Glomerular Filtration Rate Calc > 60.0 Random Glucose 89 mg/dl (75-110) Calcium Level 9.9 mg/dl (8.4-10.2) Total Bilirubin 0.5 mg/dl (0.2-1.3) Aspartate Amino Transf (AST/SGOT) 27 U/L (0-35) Alanine Aminotransferase (ALT/SGPT) 44 U/L (0-56) Alkaline Phosphatase 70 U/L (0-126) Total Protein 6.9 gm/dl (6.3-8.2) Albumin 3.7 g/dl (3.5-5.0) [place] Level 0.5 mmol/L (0.6-1.2) Chemistry Test 12/10/17 06:26 White Blood Count 5.9 k/uL (4.5-11.0) Red Blood Count 5.19 M/uL (4.17-5.56) Hemoglobin 15.9 g/dL (12.0-16.0) Hematocrit 47.0 % (34.0-47.0) Mean Corpuscular Volume 90.6 fL (80.0-96.0) Mean Corpuscular Hemoglobin 30.7 pg (26.0-33.0) Mean Corpuscular Hemoglobin Concent 33.9 g/dL (32.0-36.0) Red Cell Distribution Width 13.7 % (11.5-14.5) Platelet Count 216 K/uL (150-450) Mean Platelet Volume 9.8 fL (7.2-11.1) Neutrophils (%) (Auto) 50.0 % (39.4-72.5) Lymphocytes (%) (Auto) 36.1 % (17.6-49.6) Monocytes (%) (Auto) 10.1 % (4.1-12.4) Eosinophils (%) (Auto) 2.9 % (0.4-6.7) Basophils (%) (Auto) 0.9 % (0.3-1.4) Nucleated RBC Relative Count (auto) 0.0 /100WBC Neutrophils # (Auto) 3.0 K/uL (2.0-7.4) Lymphocytes # (Auto) 2.1 K/uL (1.3-3.6) Monocytes # (Auto) 0.6 K/uL (0.3-1.0) Eosinophils # (Auto) 0.2 K/uL (0.0-0.5) Basophils # (Auto) 0.1 K/uL (0.0-0.1) Nucleated RBC Absolute Count (auto) 0.00 K/uL Glomerular Filtration Rate Calc > 60.0 Calcium Level 9.9 mg/dl (8.4-10.2) Total Bilirubin 0.5 mg/dl (0.2-1.3) Aspartate Amino Transf (AST/SGOT) 27 U/L (0-35) Alanine Aminotransferase (ALT/SGPT) 44 U/L (0-56) Alkaline Phosphatase 70 U/L (0-126) Total Protein 6.9 gm/dl (6.3-8.2) Albumin 3.7 g/dl (3.5-5.0) [place] Level 0.5 mmol/L (0.6-1.2) Toxicology Test 12/10/17 06:26 [place] Level 0.5 mmol/L (0.6-1.2) Muscle Strength and Tone: WNL Gait and Station: Steady [facility] Medications Reviewed: Side Effects, Benefits of Medication, Risks Allergies Reviewed: Yes Mental Status Exam General Appearance: Casual, Well Groomed, Good Eye Contact, Cooperative, Polite , Good Interaction, No Tearful, No Psychomotor Agitation, No Psychomotor Retardation, No Bizarre Mannerisms, No Tics Speech: Clear, Spontaneous, Normal Rate, Normal Rhythm, Normal Volume, Normal Tone, No Delayed, No Slurred, No Garbled, No Rambling Mood: No Dysthmic/Depressed (Frustrated with lengthy hospitalization), Euthymic Affect: Full and Appropriate, Calm, Neutral, No Withdrawn, No Tearful, No Anxious, No Agitated Thought Process: Organized, Logical, Goal Directed (wants to discharge to hotel. ), Loose Associations (Ongoing, but less now.), No Flight of Ideas Thought Content: No Suicidal Ideation, No Homicidal Ideation, Delusions ( ongoing but more subdued), Auditory Halllucinations (likely present to some degree, rule out schizoaffective disorder ), No Visual Hallucinations, No Thought Broadcasting, Ideas of Reference, No Obsessions, No Compulsions Sensorium: Clear Cognition: Alert & Oriented-Person, Alert & Oriented-Place, Alert & Oriented- Time, Hphan-Bkwamdzz-Clrrfxbtc (Mostly) Memory: Immediate, Recent, Remote Intelligence: Average Insight Judgment: Poor (maladaptive stress coping mechanisms, underlying delusional disorder, high likelihood of relapse into drug use.) [facility] Assessment and Plan [id number] Encounter Date: December 17, 2017 Dzje-bn-Wcby Encounter Time: 11:00 [facility] Plan: Necessary Precautions, Individual/Group Therapy, Admin/Titrate Meds, Educate Patient Tobacco Medications: Not Appropriate Condition Multpiple Antipsychotics Used: No Problems: (1) Delusional disorder, persecutory type, continuous Status: Chronic (2) Bipolar 1 disorder with moderate ravi Status: Chronic (3) Cannabis use disorder, severe, in controlled environment Status: Chronic (4) Stimulant use disorder Status: Chronic Condition 1. continue treatment. 2. no medication changes. 3. await direction from the courts. MARINA ARAGON MD December 17, 2017 12:10
[2017-12-17] MEDS: OLANZapine 5 MG TAB PO SCH (18:39)
[2017-12-18 05:19] VITALS: BP 102/89
[2017-12-18] MEDS: MULTIVITAMINS PO SCH (08:05)
[2017-12-18] MEDS: LITHIUM CARBONATE 300 MG CAP PO SCH ×2 (08:05→18:47)
--- NOTE | 2017-12-18 09:59 | BHS Progress Note ---
S - Subjective Progress Notes Subjective Patient continues to be cooperative on the unit, and overall tolerant of frustration of not knowing what plan for her disposition from the court will transpire. Underlying delusional content remains certainly present, but is much more subdued in this patient now. Will continue same medication. Patient is compliant and able to go for escorted walks comfortably off the unit. Suicidal Ideation: None Homicidal Ideation: None S - Objective Physical Exam Vital Signs Vital Signs Date Time Temp Pulse Resp B/P (MAP) Pulse Ox O2 Delivery O2 Flow Rate FiO2 12/18/17 05:19 96.4 118 102/89 (93) 98 Room Air 12/17/17 03:39 15 Muscle Strength and Tone: WNL Gait and Station: Steady [facility] Medications Reviewed: Side Effects, Benefits of Medication, Risks Allergies Reviewed: Yes Mental Status Exam General Appearance: Casual, Well Groomed, Good Eye Contact, Cooperative, Polite , Good Interaction, No Tearful, No Psychomotor Agitation, No Psychomotor Retardation, No Bizarre Mannerisms, No Tics Speech: Clear, Spontaneous, Normal Rate, Normal Rhythm, Normal Volume, Normal Tone, No Delayed, No Slurred, No Garbled, No Rambling Mood: No Dysthmic/Depressed (Frustrated with lengthy hospitalization), Euthymic Affect: Full and Appropriate, Calm, Neutral, No Withdrawn, No Tearful, No Anxious, No Agitated Thought Process: Organized, Logical, Goal Directed (wants to discharge to hotel. ), Loose Associations (Ongoing, but less now.), No Flight of Ideas Thought Content: No Suicidal Ideation, No Homicidal Ideation, Delusions ( ongoing but more subdued), Auditory Halllucinations (likely present to some degree, rule out schizoaffective disorder ), No Visual Hallucinations, No Thought Broadcasting, Ideas of Reference, No Obsessions, No Compulsions Sensorium: Clear Cognition: Alert & Oriented-Person, Alert & Oriented-Place, Alert & Oriented- Time, Vnzkn-Lsxlplnd-Eekozhssy (Mostly) Memory: Immediate, Recent, Remote Intelligence: Average Insight Judgment: Poor (maladaptive stress coping mechanisms, underlying delusional disorder, high likelihood of relapse into drug use.) [facility] Assessment and Plan [id number]-[id number] Encounter Date: December 18, 2017 Vwgj-nl-Nkqy Encounter Time: 09:00 [facility] Plan: Necessary Precautions, Individual/Group Therapy, Admin/Titrate Meds, Educate Patient Tobacco Medications: Not Appropriate Condition Multpiple Antipsychotics Used: No Problems: (1) Delusional disorder, persecutory type, continuous Status: Chronic (2) Bipolar 1 disorder with moderate ravi Status: Chronic (3) Cannabis use disorder, severe, in controlled environment Status: Chronic (4) Stimulant use disorder Status: Chronic Condition 1. continue treatment. 2. await court direction, after previous outpatient commitment failure. 3. no medication changes. MARINA ARAGON MD December 18, 2017 09:59
[2017-12-18] MEDS: OLANZapine 5 MG TAB PO SCH (18:48)
[2017-12-18] MEDS: NICOTINE INH SYSTEM 10 MG/INH INH PRN (20:12)
[2017-12-19] MEDS: LITHIUM CARBONATE 300 MG CAP PO SCH ×2 (08:05→19:28)
[2017-12-19] MEDS: MULTIVITAMINS PO SCH (08:05)
[2017-12-19 12:15] VITALS: BP 108/72
--- NOTE | 2017-12-19 15:46 | BHS Progress Note ---
[facility] - Subjective Progress Notes Subjective Pt seen in team room with staff. Pt denies any particular c/o's. Sleeping well , appetite is good, tolerating lithium well-- denies n/v/d/tremor. Tolerating zyprexa well-- denies oversedation. No EPS noted. She has delusional thinking regarding "smart dust," the government, grandiose details regarding her past. 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 This went on for almost an hour, then she calmed down, but later escalated again. She refused staff offers of a prn, or going in to open seclusion-- but eventually did settle down. Will check lithium labs tomorrow morning and increase dose if indicated. Suicidal Ideation: None Homicidal Ideation: None [facility] - Objective Physical Exam Vital Signs Vital Signs 12/19/17 12:15 Temp 98.3 Pulse 74 Resp 16 B/P (MAP) 108/72 (84) Pulse Ox 99 O2 Delivery Room Air Muscle Strength and Tone: WNL Gait and Station: Steady [facility] Medications Reviewed: Side Effects, Benefits of Medication, Risks Allergies Reviewed: Yes Mental Status Exam General Appearance: Casual, Well Groomed, Good Eye Contact, Cooperative, Polite , Good Interaction, No Tearful, Psychomotor Agitation, No Psychomotor Retardation, No Bizarre Mannerisms, No Tics Speech: Clear, Spontaneous, Normal Rate, Normal Rhythm, No Normal Volume (loud) , Normal Tone, No Delayed, No Slurred, No Garbled, No Rambling, No Inappropriate , No Other Mood: Dysthmic/Depressed (Frustrated with lengthy hospitalization), Hyperthymic (pt is hypomanic-- pressure of speech, mildly hyperactive, labile ) Affect: No Withdrawn, No Tearful, No Anxious, Agitated Thought Process: Loose Associations (circumstantial to tangential thought process), No Flight of Ideas Thought Content: No Suicidal Ideation, No Homicidal Ideation, Delusions, Auditory Halllucinations, No Visual Hallucinations, No Thought Broadcasting, Ideas of Reference, No Obsessions, No Compulsions Sensorium: Clear Cognition: Alert & Oriented-Person, Alert & Oriented-Place, Alert & Oriented- Time, Vayrc-Hyhlvfuo-Ysfxtsnhx (Mostly) Memory: Immediate, Recent, Remote Intelligence: Average Insight Judgment: Poor S Assessment and Plan Umzu-ch-Hksg Encounter Date: December 19, 2017 Fytg-[id number] Encounter Time: 09:00 [facility] Plan: Admit to Unit, Necessary Precautions, Individual/Group Therapy, Admin /Titrate Meds, Educate Patient Tobacco Medications: Not Appropriate Condition Multpiple Antipsychotics Used: No Problems: (1) Schizoaffective disorder, bipolar type (2) Methamphetamine use disorder, severe, in controlled environment REBECCA RUEDA MD December 19, 2017 15:46
[2017-12-19] MEDS: NICOTINE INH SYSTEM 10 MG/INH INH PRN (18:38)
[2017-12-19] MEDS: OLANZapine 5 MG TAB PO SCH (19:29)
[2017-12-20 04:22] VITALS: BP 97/78
[2017-12-20] MEDS: LITHIUM CARBONATE 300 MG CAP PO SCH ×2 (08:26→19:22)
[2017-12-20] MEDS: MULTIVITAMINS PO SCH (08:26)
[2017-12-20] MEDS ORDERED: LITHIUM CARBONATE 300 MG CAP PO ONE (10:20)
--- NOTE | 2017-12-20 13:59 | BHS Progress Note ---
[facility] - Subjective Progress Notes Subjective Pt seen with staff in team room. She apologized for getting so agitated yesterday and for making insulting comments. She continues to report good sleep and appetite, and denies n/v/d and denies oversedation. Still mild pressure of speech, and still a lot of delusional material about the government , about implant in her Left ear. Labs checked today show mild elevation in LFT' s-- very minor, likely secondary to current medication-- will follow. Li level is 6.0, which is at the very low end of therapeutic range-- need to aim for level closer to 1.0 in this symptomatic patient, so will increase dose to 600 mg BID today. Suicidal Ideation: None Homicidal Ideation: None S - Objective Physical Exam Vital Signs Vital Signs 12/19/17 12/20/17 12:15 04:22 Temp 97.5 Pulse 119 Resp 16 B/P (MAP) 97/78 (84) Pulse Ox 94 O2 Delivery Room Air Muscle Strength and Tone: WNL Gait and Station: Steady [facility] Medications Reviewed: Side Effects, Benefits of Medication, Risks Allergies Reviewed: Yes Mental Status Exam General Appearance: Casual, Well Groomed, Good Eye Contact, Cooperative, Polite , Good Interaction, No Tearful, Psychomotor Agitation, No Psychomotor Retardation, No Bizarre Mannerisms, No Tics Speech: Clear, Spontaneous, Normal Rate (slightly pressured), Normal Rhythm, No Normal Volume (loud), Normal Tone, No Delayed, No Slurred, No Garbled, No Rambling, No Inappropriate, No Other Mood: Dysthmic/Depressed (Frustrated with lengthy hospitalization), Hyperthymic (pt is hypomanic-- pressure of speech, mildly hyperactive, labile ) Affect: No Withdrawn, No Tearful, No Anxious, Agitated Thought Process: Loose Associations (circumstantial to tangential thought process), No Flight of Ideas Thought Content: No Suicidal Ideation, No Homicidal Ideation, Delusions, Auditory Halllucinations, No Visual Hallucinations, No Thought Broadcasting, Ideas of Reference, No Obsessions, No Compulsions Sensorium: Clear Cognition: Alert & Oriented-Person, Alert & Oriented-Place, Alert & Oriented- Time, Avhyc-Dceynala-Exmccedkf (Mostly) Memory: Immediate, Recent, Remote Intelligence: Average Insight Judgment: Poor Result Diagram: 12/20/17 0534 Lab [place] level = 0.6. [facility] Assessment and Plan Htcw-kd-[id number] Encounter Date: December 20, 2017 Uyvy-uc-Lvul Encounter Time: 08:30 [facility] Plan: Admit to Unit, Necessary Precautions, Individual/Group Therapy, Admin /Titrate Meds, Educate Patient Tobacco Medications: Not Appropriate Condition Multpiple Antipsychotics Used: No Problems: (1) Schizoaffective disorder, bipolar type (2) Methamphetamine use disorder, severe, in controlled environment REBECCA RUEDA MD December 20, 2017 13:59
[2017-12-20] MEDS: OLANZapine 5 MG TAB PO SCH (19:22)
[2017-12-20] MEDS: NICOTINE INH SYSTEM 10 MG/INH INH PRN (20:41)
[2017-12-21 04:54] VITALS: BP 99/76
[2017-12-21] MEDS: MULTIVITAMINS PO SCH (08:15)
[2017-12-21] MEDS: LITHIUM CARBONATE 300 MG CAP PO SCH ×2 (08:15→18:57)
[2017-12-21] MEDS: PSYLLIUM 28% 1 PACKET PO SCH (12:00)
--- NOTE | 2017-12-21 15:09 | BHS Progress Note ---
S - Subjective Progress Notes Subjective Pt seen in treatment team meeting with staff present. Pt says she is feeling a little better today, with less racing thoughts-- referring to her thoughts she said, "The technology was going wild off the tracks." Then she spoke about something in her left ear, a device, causing voices.... Talking about how she does not want to get back together with her boyfriend she explained, "It would be kind of a turner kind of relationship, you know, an Christian Hitler relationship , a utrner relationship. Because we have a Hitler in the [place]" I asked what she meant by that and she said, "Because you hear your own thoughts, I did some research on it. Christian Bennett was into technology to round up his people. It was a [place] war, you know we probably have one of those going now, a [place] war." Pt's labs show normal TSH at 4.49. Pt tolerating increase in lithium; she denies n/v/d/tremor. Will continue current treatment; court is scheduled for Thursday. Suicidal Ideation: None Homicidal Ideation: None [facility] - Objective Physical Exam Vital Signs Vital Signs 12/21/17 04:54 Temp 97.8 Pulse 95 Resp 15 B/P (MAP) 99/76 (84) Pulse Ox 95 O2 Delivery Room Air Muscle Strength and Tone: WNL Gait and Station: Steady [facility] Medications Reviewed: Side Effects, Benefits of Medication, Risks Allergies Reviewed: Yes Mental Status Exam General Appearance: Casual, Well Groomed, Good Eye Contact, Cooperative, Polite , Good Interaction, No Tearful, Psychomotor Agitation, No Psychomotor Retardation, No Bizarre Mannerisms, No Tics Speech: Clear, Spontaneous, Normal Rate (slightly pressured), Normal Rhythm, No Normal Volume (loud), Normal Tone, No Delayed, No Slurred, No Garbled, No Rambling, No Inappropriate, No Other Mood: Dysthmic/Depressed (Frustrated with lengthy hospitalization), Hyperthymic (pt is hypomanic-- pressure of speech, mildly hyperactive, labile ) Affect: No Withdrawn, No Tearful, No Anxious, Agitated Thought Process: Loose Associations (thought process continues quite tangential , see narrative above.), No Flight of Ideas Thought Content: No Suicidal Ideation, No Homicidal Ideation, Delusions, Auditory Halllucinations, No Visual Hallucinations, No Thought Broadcasting, Ideas of Reference, No Obsessions, No Compulsions Sensorium: Clear Cognition: Alert & Oriented-Person, Alert & Oriented-Place, Alert & Oriented- Time, Ayszl-Thrwcpjk-Mpljapxsp (Mostly) Memory: Immediate, Recent, Remote Intelligence: Average Insight Judgment: Poor Result Diagram: 12/20/17 0534 Lab TSH 4.49 [facility] Assessment and Plan Yljf-ds-Zxde Encounter Date: December 21, 2017 Ofwy-ic-Gszk Encounter Time: 08:45 [facility] Plan: Admit to Unit, Necessary Precautions, Individual/Group Therapy, Admin /Titrate Meds, Educate Patient Tobacco Medications: Not Appropriate Condition Multpiple Antipsychotics Used: No Problems: (1) Schizoaffective disorder, bipolar type (2) Methamphetamine use disorder, severe, in controlled environment REBECCA RUEDA MD December 21, 2017 15:09
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
[2017-12-21] MEDS: OLANZapine 5 MG TAB PO SCH (18:57)
[2017-12-21] MEDS: NICOTINE INH SYSTEM 10 MG/INH INH PRN (21:37)
[2017-12-22 03:30] VITALS: BP 114/75
[2017-12-22] MEDS: LITHIUM CARBONATE 300 MG CAP PO SCH ×2 (08:26→19:01)
[2017-12-22] MEDS: MULTIVITAMINS PO SCH (08:26)
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
[2017-12-22] MEDS: PSYLLIUM 28% 1 PACKET PO SCH (12:00)
[2017-12-22] MEDS: OLANZapine 5 MG TAB PO SCH (19:01)
[2017-12-23 04:26] VITALS: BP 109/71
[2017-12-23] MEDS: LITHIUM CARBONATE 300 MG CAP PO SCH ×2 (08:09→19:04)
[2017-12-23] MEDS: MULTIVITAMINS PO SCH (08:09)
[2017-12-23] MEDS: NICOTINE INH SYSTEM 10 MG/INH INH PRN (10:49)
[2017-12-23] MEDS: PSYLLIUM 28% 1 PACKET PO SCH (12:00)
--- NOTE | 2017-12-23 14:10 | BHS Progress Note ---
S - Subjective Progress Notes Subjective Pt seen in treatment team with staff and [employer] staff present. Pt continues to be delusional, talking about the "Smart Dust around my left ear, It used to be all over my body, but now just my ear. I can't sleep on my Left side because of it..... We are in a secret war now, right? A [place]-S-[place] war, right? " Still reporting AH which she says are her own thoughts "turned up by the smart dust." Sleep and appetite are fine. Moving her bowels regularly with prune juice. Denies n/v/d/tremor. No EPS noted. Pt met with Connie from [facility] again yesterday, and pt is more accepting of the possibility that she may need to go to the [facility] before she is stable enough to move into the [facility]. Suicidal Ideation: None Homicidal Ideation: None S - Objective Physical Exam Vital Signs Vital Signs 12/23/17 04:26 Temp 97.6 Pulse 107 Resp 16 B/P (MAP) 109/71 (84) Pulse Ox 94 O2 Delivery Room Air Muscle Strength and Tone: WNL Gait and Station: Steady [facility] Medications Reviewed: Side Effects, Benefits of Medication, Risks Allergies Reviewed: Yes Mental Status Exam General Appearance: Casual, Well Groomed, Good Eye Contact, Cooperative, Polite , Good Interaction, No Tearful, Psychomotor Agitation, No Psychomotor Retardation, No Bizarre Mannerisms, No Tics Speech: Clear, Spontaneous, Normal Rate (Slightly pressured), Normal Rhythm, No Normal Volume (Loud when upset.), Normal Tone, No Delayed, No Slurred, No Garbled, No Rambling, No Inappropriate, No Other Mood: Dysthmic/Depressed (Frustrated with lengthy hospitalization), Hyperthymic (Patient is hypomanic-- slight pressure of speech, mildly hyperactive, labile mood. ) Affect: Calm, No Withdrawn, No Tearful, No Anxious Thought Process: Loose Associations (Circumstantial to tangential thought process), No Flight of Ideas Thought Content: No Suicidal Ideation, No Homicidal Ideation, Delusions, Auditory Halllucinations, No Visual Hallucinations, No Thought Broadcasting, Ideas of Reference, No Obsessions, No Compulsions Sensorium: Clear Cognition: Alert & Oriented-Person, Alert & Oriented-Place, Alert & Oriented- Time, Zrnbm-Ammbjgji-Mntfufdzj (Mostly) Memory: Immediate, Recent, Remote Intelligence: Average Insight Judgment: Poor Result Diagram: 12/20/17 0534 [facility] Assessment and Plan Xzkp-zv-[id number] Encounter Date: December 23, 2017 [id number] Encounter Time: 08:00 [facility] Plan: Admit to Unit, Necessary Precautions, Individual/Group Therapy, Admin /Titrate Meds, Educate Patient Tobacco Medications: Not Appropriate Condition Multpiple Antipsychotics Used: No Problems: (1) Schizoaffective disorder, bipolar type (2) Methamphetamine use disorder, severe, in controlled environment REBECCA RUEDA MD December 23, 2017 14:09
[2017-12-23] MEDS: OLANZapine 5 MG TAB PO SCH (19:04)
[2017-12-24] MEDS: LITHIUM CARBONATE 300 MG CAP PO SCH ×2 (08:19→19:00)
[2017-12-24] MEDS: MULTIVITAMINS PO SCH (08:19)
[2017-12-24] MEDS: NICOTINE INH SYSTEM 10 MG/INH INH PRN (08:45)
--- NOTE | 2017-12-24 09:43 | BHS Progress Note ---
[facility] - Subjective Progress Notes Subjective Pt seen individually. She continues to express delusional material, "I've had a lot of trouble with this government, this administration, with the smart dust. " She is tolerating meds well-- denies n/v/d/tremor. No EPS noted. She understands that I will be testifying by speakerphone in her hearing tomorrow. We reviewed her diagnosis, and I told her that my recommendation is further time to stabilize on medication in the hospital- probably a month or two, followed by the [facility]. Pt is scheduled for a 5 day lithium level tomorrow am. Continue current treatment plan. Suicidal Ideation: None Homicidal Ideation: None [facility] - Objective Physical Exam Vital Signs Vital Signs 12/23/17 04:26 Temp 97.6 Pulse 107 Resp 16 B/P (MAP) 109/71 (84) Pulse Ox 94 O2 Delivery Room Air Muscle Strength and Tone: WNL Gait and Station: Steady [facility] Medications Reviewed: Side Effects, Benefits of Medication, Risks Allergies Reviewed: Yes Mental Status Exam General Appearance: Casual, Well Groomed, Good Eye Contact, Cooperative, Polite , Good Interaction, No Tearful, Psychomotor Agitation, No Psychomotor Retardation, No Bizarre Mannerisms, No Tics Speech: Clear, Spontaneous, Normal Rate (Slightly pressured), Normal Rhythm, No Normal Volume (Loud when upset.), Normal Tone, No Delayed, No Slurred, No Garbled, No Rambling, No Inappropriate, No Other Mood: Dysthmic/Depressed (Frustrated with lengthy hospitalization), Hyperthymic (Patient is hypomanic-- slight pressure of speech, mildly hyperactive, labile mood. ) Affect: Calm, No Withdrawn, No Tearful, No Anxious Thought Process: Loose Associations (Circumstantial to tangential thought process), No Flight of Ideas Thought Content: No Suicidal Ideation, No Homicidal Ideation, Delusions, Auditory Halllucinations, No Visual Hallucinations, No Thought Broadcasting, Ideas of Reference, No Obsessions, No Compulsions Sensorium: Clear Cognition: Alert & Oriented-Person, Alert & Oriented-Place, Alert & Oriented- Time, Croji-Irrcgidt-Jrqosqits (Mostly) Memory: Immediate, Recent, Remote Intelligence: Average Insight Judgment: Poor Result Diagram: 12/20/17 0534 [facility] Assessment and Plan Qevh-eq-Lare Encounter Date: December 24, 2017 Jtup-[id number] Encounter Time: 09:00 [facility] Plan: Admit to Unit, Necessary Precautions, Individual/Group Therapy, Admin /Titrate Meds, Educate Patient Tobacco Medications: Not Appropriate Condition Multpiple Antipsychotics Used: No Problems: (1) Schizoaffective disorder, bipolar type (2) Methamphetamine use disorder, severe, in controlled environment REBECCA RUEDA MD December 24, 2017 09:43
[2017-12-24] MEDS: PSYLLIUM 28% 1 PACKET PO SCH ×2 (12:00→12:16)
[2017-12-24 12:09] VITALS: BP 110/79
[2017-12-24] MEDS ORDERED: IBUPROFEN 600 MG TAB PO PRN (12:40)
[2017-12-24] MEDS: OLANZapine 5 MG TAB PO SCH (18:59)
[2017-12-25 00:33] VITALS: BP 90/64
[2017-12-25] MEDS: LITHIUM CARBONATE 300 MG CAP PO SCH ×2 (07:56→19:18)
[2017-12-25] MEDS: MULTIVITAMINS PO SCH (07:56)
[2017-12-25] MEDS: NICOTINE INH SYSTEM 10 MG/INH INH PRN (10:50)
[2017-12-25] MEDS: PSYLLIUM 28% 1 PACKET PO SCH (12:14)
--- NOTE | 2017-12-25 13:18 | BHS Progress Note ---
BHS - Subjective Progress Notes Subjective Lian is seen this morning on rounds and in treatment team. She has been to a hearing this morning and [place] [facility] [place]. She seems resolved to this plan and has questions about the conditions and protocols at the [facility] but no serious objections to going. She feels well today and although she continues to complain about "the administration" and "dust," she admits that the oppressive and persistent audio hallucinations she was having prior to admission are not happening now. She feels hopeful and agrees that it would be wonderful if she could continue to be free of them. Lian's lithium dose was increased by Dr. Peterson to 600 mgs BID. A lithium level drawn this morning is 0.7. Hematology Test 12/10/17 06:26 12/20/17 05:34 12/25/17 06:07 Red Blood Count 5.19 M/uL (4.17-5.56) Mean Corpuscular Volume 90.6 fL (80.0-96.0) Mean Corpuscular Hemoglobin 30.7 pg (26.0-33.0) Mean Corpuscular Hemoglobin Concent 33.9 g/dL (32.0-36.0) Red Cell Distribution Width 13.7 % (11.5-14.5) Mean Platelet Volume 9.8 fL (7.2-11.1) Neutrophils (%) (Auto) 50.0 % (39.4-72.5) Lymphocytes (%) (Auto) 36.1 % (17.6-49.6) Monocytes (%) (Auto) 10.1 % (4.1-12.4) Eosinophils (%) (Auto) 2.9 % (0.4-6.7) Basophils (%) (Auto) 0.9 % (0.3-1.4) Nucleated RBC Relative Count (auto) 0.0 /100WBC Neutrophils # (Auto) 3.0 K/uL (2.0-7.4) Lymphocytes # (Auto) 2.1 K/uL (1.3-3.6) Monocytes # (Auto) 0.6 K/uL (0.3-1.0) Eosinophils # (Auto) 0.2 K/uL (0.0-0.5) Basophils # (Auto) 0.1 K/uL (0.0-0.1) Nucleated RBC Absolute Count (auto) 0.00 K/uL Sodium Level 138 mmol/L (137-145) Potassium Level 3.7 mmol/L (3.5-5.0) Chloride Level 104 mmol/L (98-107) Carbon Dioxide Level 24 mmol/L (22-31) Blood Urea Nitrogen 10 mg/dl (7-18) Creatinine 0.70 mg/dl (0.52-1.04) Glomerular Filtration Rate Calc > 60.0 Random Glucose 86 mg/dl (75-110) Calcium Level 9.6 mg/dl (8.4-10.2) Total Bilirubin 0.4 mg/dl (0.2-1.3) Aspartate Amino Transf (AST/SGOT) 42 U/L (0-35) Alanine Aminotransferase (ALT/SGPT) 67 U/L (0-56) Alkaline Phosphatase 76 U/L (0-126) Total Protein 6.1 gm/dl (6.3-8.2) Albumin 3.4 g/dl (3.5-5.0) Thyroid Stimulating Hormone (TSH) 4.49 uIU/ml (0.46-4.68) [place] Level 0.7 mmol/L (0.6-1.2) Chemistry Test 12/10/17 06:26 12/20/17 05:34 12/25/17 06:07 White Blood Count 5.9 k/uL (4.5-11.0) Red Blood Count 5.19 M/uL (4.17-5.56) Hemoglobin 15.9 g/dL (12.0-16.0) Hematocrit 47.0 % (34.0-47.0) Mean Corpuscular Volume 90.6 fL (80.0-96.0) Mean Corpuscular Hemoglobin 30.7 pg (26.0-33.0) Mean Corpuscular Hemoglobin Concent 33.9 g/dL (32.0-36.0) Red Cell Distribution Width 13.7 % (11.5-14.5) Platelet Count 216 K/uL (150-450) Mean Platelet Volume 9.8 fL (7.2-11.1) Neutrophils (%) (Auto) 50.0 % (39.4-72.5) Lymphocytes (%) (Auto) 36.1 % (17.6-49.6) Monocytes (%) (Auto) 10.1 % (4.1-12.4) Eosinophils (%) (Auto) 2.9 % (0.4-6.7) Basophils (%) (Auto) 0.9 % (0.3-1.4) Nucleated RBC Relative Count (auto) 0.0 /100WBC Neutrophils # (Auto) 3.0 K/uL (2.0-7.4) Lymphocytes # (Auto) 2.1 K/uL (1.3-3.6) Monocytes # (Auto) 0.6 K/uL (0.3-1.0) Eosinophils # (Auto) 0.2 K/uL (0.0-0.5) Basophils # (Auto) 0.1 K/uL (0.0-0.1) Nucleated RBC Absolute Count (auto) 0.00 K/uL Glomerular Filtration Rate Calc > 60.0 Calcium Level 9.6 mg/dl (8.4-10.2) Total Bilirubin 0.4 mg/dl (0.2-1.3) Aspartate Amino Transf (AST/SGOT) 42 U/L (0-35) Alanine Aminotransferase (ALT/SGPT) 67 U/L (0-56) Alkaline Phosphatase 76 U/L (0-126) Total Protein 6.1 gm/dl (6.3-8.2) Albumin 3.4 g/dl (3.5-5.0) Thyroid Stimulating Hormone (TSH) 4.49 uIU/ml (0.46-4.68) [place] Level 0.7 mmol/L (0.6-1.2) Toxicology Test 12/25/17 06:07 [place] Level 0.7 mmol/L (0.6-1.2) Denies any side effects of medication and believes that her current dose is fine --does not need more or less. Suicidal Ideation: None BHS - Objective Physical Exam Muscle Strength and Tone: WNL Gait and Station: Steady [facility] Medications Reviewed: Side Effects (denies) Allergies Reviewed: Yes Mental Status Exam General Appearance: Casual, Well Groomed, Good Eye Contact, Cooperative, Polite , Good Interaction, No Tearful, Psychomotor Agitation, No Psychomotor Retardation, No Bizarre Mannerisms, No Tics Speech: Clear, Spontaneous, Normal Rate (Slightly pressured), Normal Rhythm, No Normal Volume (Loud when upset.), Normal Tone, No Delayed, No Slurred, No Garbled, No Rambling, No Inappropriate, No Other Mood: Dysthmic/Depressed (Frustrated with lengthy hospitalization), Hyperthymic (Patient is hypomanic-- slight pressure of speech, mildly hyperactive, labile mood. ) Affect: Calm, No Withdrawn, No Tearful, No Anxious Thought Process: Logical, Goal Directed, No Flight of Ideas Thought Content: No Suicidal Ideation, No Homicidal Ideation, Delusions ( continues to feel persecuted by "the administration"), No Visual Hallucinations , No Thought Broadcasting, Ideas of Reference, No Obsessions, No Compulsions Sensorium: Clear Cognition: Alert & Oriented-Person, Alert & Oriented-Place, Alert & Oriented- Time, Lbsiv-Ochrlnwc-Ylhuawwgx (Mostly) Memory: Immediate, Recent, Remote Intelligence: Average Insight Judgment: Poor Lab [place] level on the increased dose of lithium is 0.7 this morning. [facility] Assessment and Plan Lckt-vt-Bmlb Encounter Date: December 25, 2017 Barm-fu-Juuw Encounter Time: 09:00 [facility] Plan: Admit to Unit, Necessary Precautions, Individual/Group Therapy, Admin /Titrate Meds, Educate Patient Tobacco Medications: Not Appropriate Condition Multpiple Antipsychotics Used: No Problems: (1) Schizoaffective disorder, bipolar type (2) Methamphetamine use disorder, severe, in controlled environment (3) Cannabis use disorder, severe, in controlled environment Status: Chronic Condition Continue current medications. [place] level is appropriate. Lian is in stable condition and awaiting transfer to [facility]. We will continue to work with her on understanding the importance of medication adherence and abstinence from drugs of abuse to continue to feel well. Discussed the next phase of treatment at [facility] and what to expect there. VIVIAN GONZALES DO December 25, 2017 08:29
[2017-12-25] MEDS: OLANZapine 5 MG TAB PO SCH (19:17)
[2017-12-26 06:08] VITALS: BP 104/78
[2017-12-26] MEDS: LITHIUM CARBONATE 300 MG CAP PO SCH ×2 (08:38→18:48)
[2017-12-26] MEDS: MULTIVITAMINS PO SCH (08:38)
--- NOTE | 2017-12-26 09:11 | BHS Progress Note ---
[facility] - Subjective Progress Notes Subjective "I'm going to be leaving soon. I'm going to be getting ready for [place] [address]. Trump makes me want to lash out. I'm staying away from the news." Denies depression, anxiety, "I get a little sad at times and cry but I'm doing better." Delusional thoughts ongoing, mood stable with use of [place] and Olanzapine Suicidal Ideation: None Homicidal Ideation: None Suicidal Ideation: None Homicidal Ideation: None [facility] - Objective Physical Exam Vital Signs Vital Signs Date Time Temp Pulse Resp B/P (MAP) Pulse Ox O2 Delivery O2 Flow Rate FiO2 12/26/17 06:08 98.4 58 14 104/78 (87) 94 Room Air Vital Signs Date Time Temp Pulse Resp B/P (MAP) Pulse Ox O2 Delivery O2 Flow Rate FiO2 12/26/17 06:08 98.4 58 14 104/78 (87) 94 Room Air Muscle Strength and Tone: WNL Gait and Station: Steady S Medications Reviewed: Side Effects Allergies Reviewed: Yes Mental Status Exam General Appearance: Casual, Well Groomed, Good Eye Contact, Cooperative, Polite , Good Interaction, Psychomotor Agitation Speech: Clear, Spontaneous, Normal Rate, Normal Rhythm, Normal Tone Mood: Dysthmic/Depressed, Hyperthymic Affect: Calm Thought Process: Logical, Goal Directed Thought Content: Delusions, Ideas of Reference Sensorium: Clear Cognition: Alert & Oriented-Person, Alert & Oriented-Place, Alert & Oriented- Time, [place]-Qsmdkyka-Bynxalpmu Memory: Immediate, Recent, Remote Intelligence: Average Insight Judgment: Poor Lab Vital Signs Date Time Temp Pulse Resp B/P (MAP) Pulse Ox O2 Delivery O2 Flow Rate FiO2 12/26/17 06:08 98.4 58 14 104/78 (87) 94 Room Air Allergies Coded Allergies No Known Drug Allergies (Unverified12/02/17) [facility] Assessment and Plan Herl-dp-Pzih Encounter Date: December 26, 2017 Rsau-dw-Aqha Encounter Time: 09:10 [facility] Plan: Admit to Unit, Necessary Precautions, Individual/Group Therapy, Admin /Titrate Meds, Educate Patient Tobacco Medications: Not Appropriate Condition Multpiple Antipsychotics Used: No Problems: (1) Schizoaffective disorder, bipolar type Status: Chronic (2) Delusional disorder, persecutory type, continuous Status: Chronic (3) Cannabis use disorder, severe, in controlled environment Status: Chronic (4) Stimulant use disorder Status: Chronic Condition Continue current plan of care Awaiting [facility] transfer #3 wait listed EILEEN LOPEZ NP December 26, 2017 09:11
[2017-12-26] MEDS: NICOTINE INH SYSTEM 10 MG/INH INH PRN (11:02)
[2017-12-26] MEDS: PSYLLIUM 28% 1 PACKET PO SCH (13:12)
[2017-12-26] MEDS: OLANZapine 5 MG TAB PO SCH (18:49)
[2017-12-27 06:24] VITALS: BP 112/75
[2017-12-27] MEDS: MULTIVITAMINS PO SCH (08:15)
[2017-12-27] MEDS: LITHIUM CARBONATE 300 MG CAP PO SCH ×2 (08:15→18:36)
--- NOTE | 2017-12-27 09:46 | BHS Progress Note ---
[facility] - Subjective Progress Notes Subjective "I'm better. I'm a lot more relaxed here. At home I can't even bend over because of the smart dust. They clean a lot up here and that takes care of it. I'm not a big Trump fan, I think he's a disgusting individual." States that , Nelson called this am, currently in [place]. "We never sent the marriage certificate so technically we aren't ." Currently denies depression, anxiety as has been listening to relaxation tapes. Denies AVH, "It's only little voices that slip in but I block them out." Denies suicidal or homicidal ideation. [place] level 12/25/17 0.7 Suicidal Ideation: None Homicidal Ideation: None [facility] - Objective Physical Exam Vital Signs Allergies Coded Allergies No Known Drug Allergies (Unverified12/02/17) Muscle Strength and Tone: WNL Gait and Station: Steady [facility] Medications Reviewed: Side Effects Allergies Reviewed: Yes Mental Status Exam General Appearance: Casual, Well Groomed, Good Eye Contact, Cooperative, Polite , Good Interaction, Psychomotor Agitation Speech: Clear, Spontaneous, Normal Rate, Normal Rhythm, Normal Tone Mood: No Dysthmic/Depressed, Euthymic, No Hyperthymic Affect: Calm Thought Process: Logical, Goal Directed Thought Content: Delusions, Auditory Halllucinations ("I block them out."), Ideas of Reference Sensorium: Clear Cognition: Alert & Oriented-Person, Alert & Oriented-Place, Alert & Oriented- Time, Ndqvn-Crzyhctc-Ztiboysyt Memory: Immediate, Recent, Remote Intelligence: Average Insight Judgment: Poor Lab Vital Signs Date Time Temp Pulse Resp B/P (MAP) Pulse Ox O2 Delivery O2 Flow Rate FiO2 12/27/17 06:24 98.7 105 112/75 (87) 94 Room Air 12/26/17 06:08 14 Allergies Coded Allergies No Known Drug Allergies (Unverified12/02/17) [facility] Assessment and Plan Pevi-ff-Bybj Encounter Date: December 27, 2017 Kjmq-bu-Qnas Encounter Time: 09:40 [facility] Plan: Admit to Unit, Necessary Precautions, Individual/Group Therapy, Admin /Titrate Meds, Educate Patient Tobacco Medications: Not Appropriate Condition Multpiple Antipsychotics Used: No Problems: (1) Schizoaffective disorder, bipolar type Status: Chronic (2) Delusional disorder, persecutory type, continuous Status: Chronic (3) Cannabis use disorder, severe, in controlled environment Status: Chronic (4) Stimulant use disorder Status: Chronic Condition Continue current medication and treatment Maintain precautions Continue [place] 600 mg po bid, obtain repeat level in am, continue Olanzapine 20 mg po @ hs Labs in am 12/28/17, Treatment team am 12/28/17 Awaiting transfer to [facility] EILEEN LOPEZ NP December 27, 2017 09:46
[2017-12-27] MEDS: NICOTINE INH SYSTEM 10 MG/INH INH PRN (11:13)
[2017-12-27] MEDS: PSYLLIUM 28% 1 PACKET PO SCH (12:21)
--- NOTE | 2017-12-27 14:51 | EKG ---
[place] [facility] [place]IENT NAME: ALYSHA BOSS : [id number] MR: [id number] V: [id number] EXAM DATE: ORDERING PHYSICIAN: EILEEN LOPEZ TECHNOLOGIST: LIYA Garcia Reason : ANTIPYSCHOTIC Blood Pressure : / mmHG Vent. Rate : 068 BPM Atrial Rate : 068 BPM P-R Int : 154 ms QRS Dur : 086 ms QT Int : 388 ms P-R-T Axes : 050 064 054 degrees QTc Int : 412 ms Sinus rhythm Decreased R wave progression anteriorly Possible biatrial enlargement Artifact in a few leads - repeat if needed Confirmed by LIV SETHI ([id number]) on 12/28/2017 11:23:10 AM Referred By: Confirmed By:LIV SETHI
[2017-12-27] MEDS: OLANZapine 5 MG TAB PO SCH (18:36)
[2017-12-28 05:30] VITALS: BP 101/81
[2017-12-28] MEDS: LITHIUM CARBONATE 300 MG CAP PO SCH ×2 (08:20→18:56)
[2017-12-28] MEDS: MULTIVITAMINS PO SCH (08:20)
--- NOTE | 2017-12-28 09:14 | BHS Progress Note ---
[facility] - Subjective Progress Notes Subjective Patient remains very pleasant and cooperative this AM. Denies any other concerns today. [place] level is 0.7. Appetite and sleep is intact. Patient is accepting of [facility] wait list where she is currently number 3. Will continue current medications as prescribed. Suicidal Ideation: None Homicidal Ideation: None [facility] - Objective Physical Exam Vital Signs Vital Signs Date Time Temp Pulse Resp B/P (MAP) Pulse Ox O2 Delivery O2 Flow Rate FiO2 12/28/17 05:30 97.2 100 16 101/81 (88) 94 Room Air Hematology Test 12/10/17 06:26 12/20/17 05:34 12/28/17 07:13 Red Blood Count 5.19 M/uL (4.17-5.56) Mean Corpuscular Volume 90.6 fL (80.0-96.0) Mean Corpuscular Hemoglobin 30.7 pg (26.0-33.0) Mean Corpuscular Hemoglobin Concent 33.9 g/dL (32.0-36.0) Red Cell Distribution Width 13.7 % (11.5-14.5) Mean Platelet Volume 9.8 fL (7.2-11.1) Neutrophils (%) (Auto) 50.0 % (39.4-72.5) Lymphocytes (%) (Auto) 36.1 % (17.6-49.6) Monocytes (%) (Auto) 10.1 % (4.1-12.4) Eosinophils (%) (Auto) 2.9 % (0.4-6.7) Basophils (%) (Auto) 0.9 % (0.3-1.4) Nucleated RBC Relative Count (auto) 0.0 /100WBC Neutrophils # (Auto) 3.0 K/uL (2.0-7.4) Lymphocytes # (Auto) 2.1 K/uL (1.3-3.6) Monocytes # (Auto) 0.6 K/uL (0.3-1.0) Eosinophils # (Auto) 0.2 K/uL (0.0-0.5) Basophils # (Auto) 0.1 K/uL (0.0-0.1) Nucleated RBC Absolute Count (auto) 0.00 K/uL Thyroid Stimulating Hormone (TSH) 4.49 uIU/ml (0.46-4.68) Sodium Level 140 mmol/L (137-145) Potassium Level 4.1 mmol/L (3.5-5.0) Chloride Level 104 mmol/L (98-107) Carbon Dioxide Level 28 mmol/L (22-31) Blood Urea Nitrogen 9 mg/dl (7-18) Creatinine 0.70 mg/dl (0.52-1.04) Glomerular Filtration Rate Calc > 60.0 Random Glucose 74 mg/dl (75-110) Calcium Level 9.9 mg/dl (8.4-10.2) Total Bilirubin 0.5 mg/dl (0.2-1.3) Aspartate Amino Transf (AST/SGOT) 35 U/L (0-35) Alanine Aminotransferase (ALT/SGPT) 59 U/L (0-56) Alkaline Phosphatase 69 U/L (0-126) Total Protein 6.6 gm/dl (6.3-8.2) Albumin 3.6 g/dl (3.5-5.0) [place] Level 0.7 mmol/L (0.6-1.2) Chemistry Test 12/10/17 06:26 12/20/17 05:34 12/28/17 07:13 White Blood Count 5.9 k/uL (4.5-11.0) Red Blood Count 5.19 M/uL (4.17-5.56) Hemoglobin 15.9 g/dL (12.0-16.0) Hematocrit 47.0 % (34.0-47.0) Mean Corpuscular Volume 90.6 fL (80.0-96.0) Mean Corpuscular Hemoglobin 30.7 pg (26.0-33.0) Mean Corpuscular Hemoglobin Concent 33.9 g/dL (32.0-36.0) Red Cell Distribution Width 13.7 % (11.5-14.5) Platelet Count 216 K/uL (150-450) Mean Platelet Volume 9.8 fL (7.2-11.1) Neutrophils (%) (Auto) 50.0 % (39.4-72.5) Lymphocytes (%) (Auto) 36.1 % (17.6-49.6) Monocytes (%) (Auto) 10.1 % (4.1-12.4) Eosinophils (%) (Auto) 2.9 % (0.4-6.7) Basophils (%) (Auto) 0.9 % (0.3-1.4) Nucleated RBC Relative Count (auto) 0.0 /100WBC Neutrophils # (Auto) 3.0 K/uL (2.0-7.4) Lymphocytes # (Auto) 2.1 K/uL (1.3-3.6) Monocytes # (Auto) 0.6 K/uL (0.3-1.0) Eosinophils # (Auto) 0.2 K/uL (0.0-0.5) Basophils # (Auto) 0.1 K/uL (0.0-0.1) Nucleated RBC Absolute Count (auto) 0.00 K/uL Thyroid Stimulating Hormone (TSH) 4.49 uIU/ml (0.46-4.68) Glomerular Filtration Rate Calc > 60.0 Calcium Level 9.9 mg/dl (8.4-10.2) Total Bilirubin 0.5 mg/dl (0.2-1.3) Aspartate Amino Transf (AST/SGOT) 35 U/L (0-35) Alanine Aminotransferase (ALT/SGPT) 59 U/L (0-56) Alkaline Phosphatase 69 U/L (0-126) Total Protein 6.6 gm/dl (6.3-8.2) Albumin 3.6 g/dl (3.5-5.0) [place] Level 0.7 mmol/L (0.6-1.2) Toxicology Test 12/28/17 07:13 [place] Level 0.7 mmol/L (0.6-1.2) Muscle Strength and Tone: WNL Gait and Station: Steady [facility] Medications Reviewed: Side Effects, Benefits of Medication, Risks Allergies Reviewed: Yes Mental Status Exam General Appearance: Casual, Well Groomed, Good Eye Contact, Cooperative, Polite , Good Interaction, No Psychomotor Agitation, No Psychomotor Retardation, No Bizarre Mannerisms (none today), No Tics Speech: Clear, Spontaneous, Normal Rate, Normal Rhythm, Normal Volume, Normal Tone Mood: No Dysthmic/Depressed, Euthymic, No Hyperthymic Affect: Full and Appropriate, Calm, No Withdrawn, No Tearful, No Anxious, No Agitated Thought Process: Organized (mostly), Logical, Goal Directed, No Loose Associations, No Flight of Ideas Thought Content: No Suicidal Ideation, No Homicidal Ideation, Delusions ( underlying, but less overall servicing. ), Auditory Halllucinations ("I block them out."), No Visual Hallucinations, Ideas of Reference Sensorium: Clear Cognition: Alert & Oriented-Person, Alert & Oriented-Place, Alert & Oriented- Time, Znlbn-Vsnjyrnv-Rzrhrdmtx Memory: Immediate, Recent, Remote Intelligence: Average Insight Judgment: Poor (improved in absence of illicit substance use. ) Result Diagram: 12/28/17 0713 [facility] Assessment and Plan Wosk-pe-Uklj Encounter Date: December 28, 2017 Vkyw-tz-Bugx Encounter Time: 08:40 [facility] Plan: Admit to Unit, Necessary Precautions, Individual/Group Therapy, Admin /Titrate Meds, Educate Patient Tobacco Medications: Not Appropriate Condition Multpiple Antipsychotics Used: No Problems: (1) Delusional disorder, persecutory type, continuous Status: Chronic (2) Bipolar 1 disorder with moderate ravi Status: Chronic (3) Cannabis use disorder, severe, in controlled environment Status: Chronic (4) Stimulant use disorder Status: Chronic Condition 1. continue treatment 2. no medication changes. MARINA ARAGON MD December 28, 2017 09:13
[2017-12-28] MEDS: PSYLLIUM 28% 1 PACKET PO SCH (12:40)
[2017-12-28] MEDS: OLANZapine 5 MG TAB PO SCH (18:56)
[2017-12-29 05:06] VITALS: BP 97/68
[2017-12-29] MEDS: LITHIUM CARBONATE 300 MG CAP PO SCH ×2 (08:15→19:10)
[2017-12-29] MEDS: MULTIVITAMINS PO SCH (08:15)
--- NOTE | 2017-12-29 10:13 | BHS Progress Note ---
[facility] - Subjective Progress Notes Subjective Patient remains very pleasant and cooperative on the unit, with underlying delusions of persecution much less on the surface now. Patient has seemingly responded very well to lithium and zyprexa in the absence of cannabis, and methamphetamine use. [facility]. Patient able to cooperatively go for walks with staff outside the hospital, and continues to take an active role in her treatment. Suicidal Ideation: None Homicidal Ideation: None S - Objective Physical Exam Vital Signs Vital Signs Date Time Temp Pulse Resp B/P (MAP) Pulse Ox O2 Delivery O2 Flow Rate FiO2 12/29/17 05:06 97.6 108 16 97/68 (78) 94 Room Air Hematology Test 12/10/17 06:26 12/20/17 05:34 12/28/17 07:13 Red Blood Count 5.19 M/uL (4.17-5.56) Mean Corpuscular Volume 90.6 fL (80.0-96.0) Mean Corpuscular Hemoglobin 30.7 pg (26.0-33.0) Mean Corpuscular Hemoglobin Concent 33.9 g/dL (32.0-36.0) Red Cell Distribution Width 13.7 % (11.5-14.5) Mean Platelet Volume 9.8 fL (7.2-11.1) Neutrophils (%) (Auto) 50.0 % (39.4-72.5) Lymphocytes (%) (Auto) 36.1 % (17.6-49.6) Monocytes (%) (Auto) 10.1 % (4.1-12.4) Eosinophils (%) (Auto) 2.9 % (0.4-6.7) Basophils (%) (Auto) 0.9 % (0.3-1.4) Nucleated RBC Relative Count (auto) 0.0 /100WBC Neutrophils # (Auto) 3.0 K/uL (2.0-7.4) Lymphocytes # (Auto) 2.1 K/uL (1.3-3.6) Monocytes # (Auto) 0.6 K/uL (0.3-1.0) Eosinophils # (Auto) 0.2 K/uL (0.0-0.5) Basophils # (Auto) 0.1 K/uL (0.0-0.1) Nucleated RBC Absolute Count (auto) 0.00 K/uL Thyroid Stimulating Hormone (TSH) 4.49 uIU/ml (0.46-4.68) Sodium Level 140 mmol/L (137-145) Potassium Level 4.1 mmol/L (3.5-5.0) Chloride Level 104 mmol/L (98-107) Carbon Dioxide Level 28 mmol/L (22-31) Blood Urea Nitrogen 9 mg/dl (7-18) Creatinine 0.70 mg/dl (0.52-1.04) Glomerular Filtration Rate Calc > 60.0 Random Glucose 74 mg/dl (75-110) Calcium Level 9.9 mg/dl (8.4-10.2) Total Bilirubin 0.5 mg/dl (0.2-1.3) Aspartate Amino Transf (AST/SGOT) 35 U/L (0-35) Alanine Aminotransferase (ALT/SGPT) 59 U/L (0-56) Alkaline Phosphatase 69 U/L (0-126) Total Protein 6.6 gm/dl (6.3-8.2) Albumin 3.6 g/dl (3.5-5.0) [place] Level 0.7 mmol/L (0.6-1.2) Chemistry Test 12/10/17 06:26 12/20/17 05:34 12/28/17 07:13 White Blood Count 5.9 k/uL (4.5-11.0) Red Blood Count 5.19 M/uL (4.17-5.56) Hemoglobin 15.9 g/dL (12.0-16.0) Hematocrit 47.0 % (34.0-47.0) Mean Corpuscular Volume 90.6 fL (80.0-96.0) Mean Corpuscular Hemoglobin 30.7 pg (26.0-33.0) Mean Corpuscular Hemoglobin Concent 33.9 g/dL (32.0-36.0) Red Cell Distribution Width 13.7 % (11.5-14.5) Platelet Count 216 K/uL (150-450) Mean Platelet Volume 9.8 fL (7.2-11.1) Neutrophils (%) (Auto) 50.0 % (39.4-72.5) Lymphocytes (%) (Auto) 36.1 % (17.6-49.6) Monocytes (%) (Auto) 10.1 % (4.1-12.4) Eosinophils (%) (Auto) 2.9 % (0.4-6.7) Basophils (%) (Auto) 0.9 % (0.3-1.4) Nucleated RBC Relative Count (auto) 0.0 /100WBC Neutrophils # (Auto) 3.0 K/uL (2.0-7.4) Lymphocytes # (Auto) 2.1 K/uL (1.3-3.6) Monocytes # (Auto) 0.6 K/uL (0.3-1.0) Eosinophils # (Auto) 0.2 K/uL (0.0-0.5) Basophils # (Auto) 0.1 K/uL (0.0-0.1) Nucleated RBC Absolute Count (auto) 0.00 K/uL Thyroid Stimulating Hormone (TSH) 4.49 uIU/ml (0.46-4.68) Glomerular Filtration Rate Calc > 60.0 Calcium Level 9.9 mg/dl (8.4-10.2) Total Bilirubin 0.5 mg/dl (0.2-1.3) Aspartate Amino Transf (AST/SGOT) 35 U/L (0-35) Alanine Aminotransferase (ALT/SGPT) 59 U/L (0-56) Alkaline Phosphatase 69 U/L (0-126) Total Protein 6.6 gm/dl (6.3-8.2) Albumin 3.6 g/dl (3.5-5.0) [place] Level 0.7 mmol/L (0.6-1.2) Toxicology Test 12/28/17 07:13 [place] Level 0.7 mmol/L (0.6-1.2) Muscle Strength and Tone: WNL Gait and Station: Steady [facility] Medications Reviewed: Side Effects, Benefits of Medication, Risks Allergies Reviewed: Yes Mental Status Exam General Appearance: Casual, Well Groomed, Good Eye Contact, Cooperative, Polite , Good Interaction, No Psychomotor Agitation, No Psychomotor Retardation, No Bizarre Mannerisms (none today), No Tics Speech: Clear, Spontaneous, Normal Rate, Normal Rhythm, Normal Volume, Normal Tone Mood: No Dysthmic/Depressed, Euthymic, No Hyperthymic Affect: Full and Appropriate, Calm, No Withdrawn, No Tearful, No Anxious, No Agitated Thought Process: Organized (mostly), Logical, Goal Directed, No Loose Associations, No Flight of Ideas Thought Content: No Suicidal Ideation, No Homicidal Ideation, Delusions ( underlying, but less overall surfacing. ), Auditory Halllucinations ("I block them out."), No Visual Hallucinations, Ideas of Reference Sensorium: Clear Cognition: Alert & Oriented-Person, Alert & Oriented-Place, Alert & Oriented- Time, Fyjuu-Ygkjygom-Lxbltdndw Memory: Immediate, Recent, Remote Intelligence: Average Insight Judgment: Poor (improved in absence of illicit substance use. ) Result Diagram: 12/28/17 0713 [facility] Assessment and Plan Zevz-st-Snvy Encounter Date: December 29, 2017 Fnyd-cq-Rvob Encounter Time: 10:00 [facility] Plan: Admit to Unit, Necessary Precautions, Individual/Group Therapy, Admin /Titrate Meds, Educate Patient Tobacco Medications: Not Appropriate Condition Multpiple Antipsychotics Used: No Problems: (1) Delusional disorder, persecutory type, continuous Status: Chronic (2) Bipolar 1 disorder with moderate ravi Optional Permanent Comment: likely shizoaffective disorder bipolar type Last Edited By: Marina Aragon on December 29, 2017 10:14 Status: Chronic (3) Cannabis use disorder, severe, in controlled environment Status: Chronic (4) Stimulant use disorder Status: Chronic Condition 1. patient remains compliant on the unit, awaits [facility]. 2. no medication changes. MARINA ARAGON MD December 29, 2017 10:13
[2017-12-29] MEDS: PSYLLIUM 28% 1 PACKET PO SCH (12:12)
[2017-12-29] MEDS: OLANZapine 5 MG TAB PO SCH (19:10)
[2017-12-29] MEDS: NICOTINE INH SYSTEM 10 MG/INH INH PRN (21:03)
[2017-12-30 07:45] VITALS: BP 114/80
[2017-12-30] MEDS: LITHIUM CARBONATE 300 MG CAP PO SCH ×2 (08:14→20:17)
[2017-12-30] MEDS: MULTIVITAMINS PO SCH (08:14)
--- NOTE | 2017-12-30 09:18 | BHS Progress Note ---
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 Mood remains good, and patient is well aware and indicates a full understanding of her pending disposition. Sleep and appetite good, will continue same medications for now. No other concerns. minimal underlying delusional content. Suicidal Ideation: None Homicidal Ideation: None [facility] - Objective Physical Exam Vital Signs Vital Signs Date Time Temp Pulse Resp B/P (MAP) Pulse Ox O2 Delivery O2 Flow Rate FiO2 12/29/17 05:06 97.6 108 16 97/68 (78) 94 Room Air Muscle Strength and Tone: WNL Gait and Station: Steady [facility] Medications Reviewed: Side Effects, Benefits of Medication, Risks Allergies Reviewed: Yes Mental Status Exam General Appearance: Casual, Well Groomed, Good Eye Contact, Cooperative, Polite , Good Interaction, No Unkept, No Tearful, No Psychomotor Agitation, No Psychomotor Retardation, No Bizarre Mannerisms (none today), No Tics Speech: Clear, Spontaneous, Normal Rate, Normal Rhythm, Normal Volume, Normal Tone, No Garbled, No Rambling, No Inappropriate Mood: No Dysthmic/Depressed, Euthymic, No Hyperthymic Affect: Full and Appropriate, Calm, No Withdrawn, No Tearful, No Anxious, No Agitated Thought Process: Organized (mostly), Logical, Goal Directed, No Loose Associations, No Flight of Ideas Thought Content: No Suicidal Ideation, No Homicidal Ideation, Delusions ( underlying, but less overall surfacing. ), Auditory Halllucinations ("I block them out."), No Visual Hallucinations, Ideas of Reference Sensorium: Clear Cognition: Alert & Oriented-Person, Alert & Oriented-Place, Alert & Oriented- Time, Okdky-Sqspovhf-Mmdsxxnhh Memory: Immediate, Recent, Remote Intelligence: Average Insight Judgment: Poor (improved in absence of illicit substance use. ) Result Diagram: 12/28/17 0713 [facility] Assessment and Plan Ayhw-as-Ublr Encounter Date: December 30, 2017 Ycgg-ma-Bfiw Encounter Time: 09:00 [facility] Plan: Admit to Unit, Necessary Precautions, Individual/Group Therapy, Admin /Titrate Meds, Educate Patient Tobacco Medications: Not Appropriate Condition Multpiple Antipsychotics Used: No Problems: (1) Delusional disorder, persecutory type, continuous Status: Chronic (2) Bipolar 1 disorder with moderate ravi Optional Permanent Comment: likely shizoaffective disorder bipolar type Last Edited By: Marina Aragon on December 29, 2017 10:14 Status: Chronic (3) Cannabis use disorder, severe, in controlled environment Status: Chronic (4) Stimulant use disorder Status: Chronic Condition 1. continue same medications. 2. await transfer to [facility] MARINA ARAGON MD December 30, 2017 09:18
[2017-12-30] MEDS: PSYLLIUM 28% 1 PACKET PO SCH (12:17)
[2017-12-30] MEDS ORDERED: MAGNESIUM SULF GRAN 454 GM BOX TP PRN (18:00)
[2017-12-30] MEDS ORDERED: CLOTRIMAZOLE 1% CR 30 GM TUBE TP ONE (18:00)
[2017-12-30] MEDS: OLANZapine 5 MG TAB PO SCH (20:16)
[2017-12-30] MEDS: NICOTINE INH SYSTEM 10 MG/INH INH PRN (20:18)
[2017-12-31 05:07] VITALS: BP 100/78
[2017-12-31] MEDS: MULTIVITAMINS PO SCH (08:22)
[2017-12-31] MEDS: LITHIUM CARBONATE 300 MG CAP PO SCH ×2 (08:22→19:04)
--- NOTE | 2017-12-31 08:42 | BHS Progress Note ---
[facility] - Subjective Progress Notes Subjective Patient continues to function very well overall on the unit. Very pleasant and cooperative, and continues to take an active role in her treatment. Patient reports this AM that her medications are "just right" and denies any other concerns. Patient continues to be able to go for walks and interacts very well with staff and other patients. Will continue to await state hospital transfer. Suicidal Ideation: None Homicidal Ideation: None S - Objective Physical Exam Vital Signs Vital Signs Date Time Temp Pulse Resp B/P (MAP) Pulse Ox O2 Delivery O2 Flow Rate FiO2 12/31/17 05:07 96.9 106 16 100/78 (85) 94 Room Air Hematology Test 12/10/17 06:26 12/20/17 05:34 12/28/17 07:13 Red Blood Count 5.19 M/uL (4.17-5.56) Mean Corpuscular Volume 90.6 fL (80.0-96.0) Mean Corpuscular Hemoglobin 30.7 pg (26.0-33.0) Mean Corpuscular Hemoglobin Concent 33.9 g/dL (32.0-36.0) Red Cell Distribution Width 13.7 % (11.5-14.5) Mean Platelet Volume 9.8 fL (7.2-11.1) Neutrophils (%) (Auto) 50.0 % (39.4-72.5) Lymphocytes (%) (Auto) 36.1 % (17.6-49.6) Monocytes (%) (Auto) 10.1 % (4.1-12.4) Eosinophils (%) (Auto) 2.9 % (0.4-6.7) Basophils (%) (Auto) 0.9 % (0.3-1.4) Nucleated RBC Relative Count (auto) 0.0 /100WBC Neutrophils # (Auto) 3.0 K/uL (2.0-7.4) Lymphocytes # (Auto) 2.1 K/uL (1.3-3.6) Monocytes # (Auto) 0.6 K/uL (0.3-1.0) Eosinophils # (Auto) 0.2 K/uL (0.0-0.5) Basophils # (Auto) 0.1 K/uL (0.0-0.1) Nucleated RBC Absolute Count (auto) 0.00 K/uL Thyroid Stimulating Hormone (TSH) 4.49 uIU/ml (0.46-4.68) Sodium Level 140 mmol/L (137-145) Potassium Level 4.1 mmol/L (3.5-5.0) Chloride Level 104 mmol/L (98-107) Carbon Dioxide Level 28 mmol/L (22-31) Blood Urea Nitrogen 9 mg/dl (7-18) Creatinine 0.70 mg/dl (0.52-1.04) Glomerular Filtration Rate Calc > 60.0 Random Glucose 74 mg/dl (75-110) Calcium Level 9.9 mg/dl (8.4-10.2) Total Bilirubin 0.5 mg/dl (0.2-1.3) Aspartate Amino Transf (AST/SGOT) 35 U/L (0-35) Alanine Aminotransferase (ALT/SGPT) 59 U/L (0-56) Alkaline Phosphatase 69 U/L (0-126) Total Protein 6.6 gm/dl (6.3-8.2) Albumin 3.6 g/dl (3.5-5.0) [place] Level 0.7 mmol/L (0.6-1.2) Chemistry Test 12/10/17 06:26 12/20/17 05:34 12/28/17 07:13 White Blood Count 5.9 k/uL (4.5-11.0) Red Blood Count 5.19 M/uL (4.17-5.56) Hemoglobin 15.9 g/dL (12.0-16.0) Hematocrit 47.0 % (34.0-47.0) Mean Corpuscular Volume 90.6 fL (80.0-96.0) Mean Corpuscular Hemoglobin 30.7 pg (26.0-33.0) Mean Corpuscular Hemoglobin Concent 33.9 g/dL (32.0-36.0) Red Cell Distribution Width 13.7 % (11.5-14.5) Platelet Count 216 K/uL (150-450) Mean Platelet Volume 9.8 fL (7.2-11.1) Neutrophils (%) (Auto) 50.0 % (39.4-72.5) Lymphocytes (%) (Auto) 36.1 % (17.6-49.6) Monocytes (%) (Auto) 10.1 % (4.1-12.4) Eosinophils (%) (Auto) 2.9 % (0.4-6.7) Basophils (%) (Auto) 0.9 % (0.3-1.4) Nucleated RBC Relative Count (auto) 0.0 /100WBC Neutrophils # (Auto) 3.0 K/uL (2.0-7.4) Lymphocytes # (Auto) 2.1 K/uL (1.3-3.6) Monocytes # (Auto) 0.6 K/uL (0.3-1.0) Eosinophils # (Auto) 0.2 K/uL (0.0-0.5) Basophils # (Auto) 0.1 K/uL (0.0-0.1) Nucleated RBC Absolute Count (auto) 0.00 K/uL Thyroid Stimulating Hormone (TSH) 4.49 uIU/ml (0.46-4.68) Glomerular Filtration Rate Calc > 60.0 Calcium Level 9.9 mg/dl (8.4-10.2) Total Bilirubin 0.5 mg/dl (0.2-1.3) Aspartate Amino Transf (AST/SGOT) 35 U/L (0-35) Alanine Aminotransferase (ALT/SGPT) 59 U/L (0-56) Alkaline Phosphatase 69 U/L (0-126) Total Protein 6.6 gm/dl (6.3-8.2) Albumin 3.6 g/dl (3.5-5.0) [place] Level 0.7 mmol/L (0.6-1.2) Toxicology Test 12/28/17 07:13 [place] Level 0.7 mmol/L (0.6-1.2) Muscle Strength and Tone: WNL Gait and Station: Steady [facility] Medications Reviewed: Side Effects, Benefits of Medication, Risks Allergies Reviewed: Yes Mental Status Exam General Appearance: Casual, Well Groomed, Good Eye Contact, Cooperative, Polite , Good Interaction, No Unkept, No Tearful, No Psychomotor Agitation, No Psychomotor Retardation, No Bizarre Mannerisms (none today), No Tics Speech: Clear, Spontaneous, Normal Rate, Normal Rhythm, Normal Volume, Normal Tone, No Garbled, No Rambling, No Inappropriate Mood: No Dysthmic/Depressed, Euthymic, No Hyperthymic Affect: Full and Appropriate, Calm, No Withdrawn, No Tearful, No Anxious, No Agitated Thought Process: Organized (mostly), Logical, Goal Directed, No Loose Associations, No Flight of Ideas Thought Content: No Suicidal Ideation, No Homicidal Ideation, Delusions ( underlying, but less overall surfacing. ), Auditory Halllucinations ("I block them out."), No Visual Hallucinations, Ideas of Reference Sensorium: Clear Cognition: Alert & Oriented-Person, Alert & Oriented-Place, Alert & Oriented- Time, Yymoh-Bdlycvhy-Urypwthvf Memory: Immediate, Recent, Remote Intelligence: Average Insight Judgment: Poor (improved in absence of illicit substance use. ) Result Diagram: 12/28/17 0713 [facility] Assessment and Plan Vptp-[id number] Encounter Date: December 31, 2017 Ijdl-[id number]-Ddok Encounter Time: 08:00 [facility] Plan: Admit to Unit, Necessary Precautions, Individual/Group Therapy, Admin /Titrate Meds, Educate Patient Tobacco Medications: Not Appropriate Condition Multpiple Antipsychotics Used: No Problems: (1) Delusional disorder, persecutory type, continuous Status: Chronic (2) Bipolar 1 disorder with moderate ravi Optional Permanent Comment: likely shizoaffective disorder bipolar type Last Edited By: Marina Aragon on December 29, 2017 10:14 Status: Chronic (3) Cannabis use disorder, severe, in controlled environment Status: Chronic (4) Stimulant use disorder Status: Chronic Condition 1. continue treatment. 2. no medication changes. 3. await state hospital transfer. MARINA ARAGON MD December 31, 2017 08:41
[2017-12-31] MEDS: PSYLLIUM 28% 1 PACKET PO SCH (12:20)
[2017-12-31] MEDS ORDERED: LITH600C6 PO ×2 (15:00→15:02)
[2017-12-31] MEDS ORDERED: PSYL0.5241 PO (15:03)
[2017-12-31] MEDS ORDERED: PSYL3.4P2 PO (15:04)
[2017-12-31] MEDS ORDERED: MULT-7 (15:05)
[2017-12-31] MEDS ORDERED: MULT-1379 PO (15:05)
[2017-12-31] MEDS ORDERED: NIC10R INH (15:06)
[2017-12-31] MEDS ORDERED: NICOTROL CARTRIDGE PO (15:07)
[2017-12-31] MEDS ORDERED: OLAN20TA18 PO (15:07)
[2017-12-31] MEDS: NICOTINE INH SYSTEM 10 MG/INH INH PRN (16:31)
[2017-12-31] MEDS: OLANZapine 5 MG TAB PO SCH (19:04)
[2018-01-01] MEDS: LITHIUM CARBONATE 300 MG CAP PO SCH (07:23)
[2018-01-01] MEDS: MULTIVITAMINS PO SCH (07:23)
--- NOTE | 2018-01-04 12:12 | SCHAAF DISCHARGE ---
ATTENDING PHYSICIAN Ernie Ventura MD DATE OF ADMISSION: December 02, 2017 DATE OF TRANSFER TO [facility]: January 01, 2018 Patient was seen for note concerning this dictation in the morning of January 01, 2018 at approximately 0730 hours. FINAL DIAGNOSES PER DSM-V Delusional disorder, persecutory type. Rule out schizoaffective disorder, bipolar type. Cannabis use disorder, severe. Stimulant use disorder, amphetamine. Social stressors, severe. REASON FOR ADMISSION This is a 52-year-old female who had previously failed at an outpatient commitment, patient going off of medications including lithium and Zyprexa, and once again using illicit substances. Patient admitted in a state of increased persecutory type delusions. Patient on the unit slowly normalized, patient agreeing to take lithium and Zyprexa, which had good results in the past. Patient continued to improve in the absence of illicit substances and while on medications. Towards the final half of her stay toward waiting to go for commitment to [facility], patient became very pleasant on the unit. Underlying persecutory-type delusions remained, however. Patient's appetite was good. Patient sleeping well, and patient noted to interact very well with staff members, and delusional content was much less prominent. Patient able to go for walks outside the facility escorted by staff with good results, and patient in very stable condition overall at time of transfer to [facility] to await further disposition arrangements. PHYSICAL EXAMINATION Please see emergency room note. Notable for thin 52-year-old female with persecutory type delusions obvious in the emergency room at time of admission. Vital signs at the time of admission: Temperature 97.7, pulse 74, respiratory rate 20, blood pressure 138/90 and pulse oximetry 95% on room air. At the time of discharge from [facility], vital signs showed temperature 96.9, pulse 106, blood pressure 100/78,pulse oximetry 94 on room air. LABORATORY DATA CBC on December 10, 2017 unremarkable. CMP on December 28, 2017 notable for ALT slightly elevated at 59, otherwise unremarkable. TSH 4.49. [place] level was 0.7 on both December 25, 2017 and December 28, 2017, appears to have stabilized at current dose. Patient was positive for cannabis upon admission with a nondetectable lithium level, which patient was prescribed. Negative for any serum alcohol. screen was negative, and urinalysis was unremarkable. MENTAL STATUS EXAMINATION GENERAL APPEARANCE, BEHAVIOR AND ATTITUDE: At time of discharge, this is a very pleasant 52-year-old female interacting well with staff, other patients and this provider. Patient smiling, indicating an understanding [place] [facility] [place] further evaluation of placement options. Patient very calm, cooperative, non-tearful, making good eye contact. SPEECH: Within normal limits. Regular rate, rhythm, volume and tone. MOOD: Described as good. AFFECT: Full and bright. THOUGHT PROCESSES: Logical and goal-directed, no loose associations or flight of ideas. THOUGHT CONTENT: Any auditory hallucination seems now well suppressed. No visual hallucinations. Patient does continue to have some paranoid type thinking with persecutory type delusions and some ideas of reference. However, these are becoming more and more suppressed in the absence of illicit meds, and while patient is taking medications responsibly on the unit, no obsessions or compulsions, and patient not demonstrating any parasuicidal or parahomicidal behaviors on the unit, and adamantly denying suicidal or homicidal ideation. SENSORIUM: Clear. COGNITION: Alert and oriented to person, place, time and situation. MEMORY: Immediate, recent and remote estimated intact. INTELLIGENCE: Average, based on long-term knowledge of this patient. INSIGHT AND JUDGMENT: Considered much improved on the medications of Zyprexa and lithium in the absence of illicit substance use. RESULTS OF TESTING Imaging: None. Laboratory data: See above. CONSULTATIONS None. TREATMENT Patient received medications, participated in individual and group therapy. HOSPITAL COURSE This patient has been on the floor here at [facility] before. Patient failing an outpatient commitment, and in the absence of illicit substances, patient was cooperative taking Zyprexa and lithium. She did not seem to be over medicated at all, and patient responded well with symptomatology slowly working its way into remission. CONDITION OF PATIENT ON TRANSFER TO [facility] Stable. Considered a minimal risk to herself or others in the absence of illicit substance use and appropriate for transfer. DISPOSITION The patient was transferred to the [facility]. Patient would follow up with management at the [facility], would continue same meds, and would look for appropriate disposition. DISCHARGE MEDICATIONS 1. [place] carbonate 600 mg b.i.d. 2. Metamucil daily. 3. Multivitamin with minerals daily. 4. Zyprexa 20 mg at 1900 hours. Risks, benefits and alternatives of the above transfer plan were discussed. Informed consent was given to proceed with the above transfer plan by this patient, [facility] staff. MARCO
== END 2018-01-01 07:50 | DRG 885 ==
LOC: BHS 13:13
PROVIDERS: ADMIT Psychiatry & Neurology Psychiatry; ATTEND Psychiatry & Neurology Psychiatry
DX: F25.0 Schizoaffective disorder, bipolar type (principal); F15.20 Other stimulant dependence, uncomplicated; F31.9 Bipolar disorder, unspecified; F12.20 Cannabis dependence, uncomplicated; Z59.0 Homelessness; Z91.410 Personal history of adult physical and sexual abuse; Z91.14 Patient's other noncompliance with medication regimen
CPT/HCPCS: 36415; 80178; 82040; 82247; 82310; 82374; 82435; 82565; 82947; 84075; 84132; 84155; 84295; 84443; 84450; 84460; 84520; 85025; 90853; 93005; Q0163

== ENCOUNTER → 2018-03-05 | Outpatient (CLI) | payer MEDICAID, OTHER ==
[~2018-03-05] MED LIST changes: +LITH600C6 PO; +MULT-7; +NICOTROL CARTRIDGE PO; +PSYL0.5241 PO; +PSYL3.4P2 PO
== END ==
LOC: LAB 08:40
PROVIDERS: ATTEND Nurse Practitioner Family
DX: Z79.899 Other long term (current) drug therapy (principal)
CPT/HCPCS: 36415; 80178; 82310; 82374; 82435; 82565; 82947; 84132; 84295; 84439; 84443; 84481; 84520

== ENCOUNTER → 2018-03-30 | Outpatient (CLI) | payer SELFPAY ==
[~2018-03-30] MED LIST changes: +LEVO88TA43 PO
[2018-03-30 16:21] LABS: PLATELET COUNT, AUTOMATED 245 K/uL (150-450)
[2018-03-30 16:29] LABS: INR 0.97
== END ==
LOC: LAB 16:12
PROVIDERS: ATTEND Internal Medicine
DX: F25.0 Schizoaffective disorder, bipolar type (principal); B19.20 Unspecified viral hepatitis C without hepatic coma
CPT/HCPCS: 36415; 82040; 82140; 82247; 82310; 82374; 82435; 82565; 82947; 84075; 84132; 84155; 84295; 84450; 84460; 84520; 85025; 85610; 86706; 87522

== ENCOUNTER 2018-04-08 11:09 | Outpatient (RCR) | payer MEDICAID ==
--- NOTE | 2018-04-27 09:06 | RADIOLOGY IMAGING REPORT ---
FACILITY: [facility] PATIENT NAME: Cookie Kate : 1965 MR: [id number] V: [id number] EXAM DATE: ORDERING PHYSICIAN: ERICH BARNETT TECHNOLOGIST: Location: [facility] Patient: Cookie Kate : 1965 Visit/Account:[id number] Date of Sevice: 04/27/2018 LIVER HISTORY: Chronic hepatitis C COMPARISON: None. FINDINGS: Gallbladder: Unremarkable; no stones or sludge. Liver: There is a coarse echotexture throughout the liver although discrete mass is not identified Common duct: Mildly prominent 6.9 mm diameter. Pancreas: Partially obscured by bowel, visualized aspects unremarkable. Right kidney: Right kidney appears unremarkable measuring 11.4 cm in length Upper abdominal aorta and IVC: Patent. Ascites: None visualized. IMPRESSION: There is a coarse echotexture to the liver although discrete mass is not seen , Bile duct is mildly prominent at 6.9 mm Report Dictated By: Mandy Horn MD at 04/27/2018 8:59 AM Report E-Signed By: Mandy Horn MD at 04/27/2018 9:01 AM WSN:[email or web address]
== END 2018-04-27 18:00 | disposition home or self-care (01) ==
LOC: EDSTATUS 11:09 → US 11:09
PROVIDERS: ATTEND Internal Medicine
DX: B18.2 Chronic viral hepatitis C (principal)
CPT/HCPCS: 76705

== ENCOUNTER → 2018-05-29 | Outpatient (CLI) | payer MEDICAID ==
[~2018-05-29] MED LIST changes: +AMOX-559 PO
[2018-05-29 10:40] LABS: PLATELET COUNT, AUTOMATED 262 K/uL (150-450)
== END ==
LOC: LAB 10:14
PROVIDERS: ATTEND Nurse Practitioner Family
DX: F32.1 Major depressive disorder, single episode, moderate (principal); Z79.899 Other long term (current) drug therapy
CPT/HCPCS: 36415; 80178; 82040; 82247; 82310; 82374; 82435; 82565; 82947; 84075; 84132; 84155; 84295; 84443; 84450; 84460; 84520; 85025

== ENCOUNTER → 2018-07-12 | Outpatient (CLI) | payer MEDICAID | LOC: LAB 15:35 | PROVIDERS: ATTEND Nurse Practitioner Family | DX: F31.2 Bipolar disorder, current episode manic severe with psychotic features (principal); Z79.899 Other long term (current) drug therapy | CPT/HCPCS: 36415; 80178; 82310; 82374; 82435; 82565; 82947; 84132; 84295; 84520 ==

== ENCOUNTER → 2018-07-12 | Outpatient (CLI) | payer MEDICAID | LOC: LAB 15:59 | PROVIDERS: ATTEND Internal Medicine | DX: F15.10 Other stimulant abuse, uncomplicated (principal) | CPT/HCPCS: 80305 ==

== ENCOUNTER → 2018-08-31 | Outpatient (CLI) | payer MEDICAID ==
[2018-08-31 16:52] LABS: PLATELET COUNT, AUTOMATED 249 K/uL (150-450)
== END ==
LOC: LAB 16:29
PROVIDERS: ATTEND Nurse Practitioner Family
DX: F32.1 Major depressive disorder, single episode, moderate (principal); F19.20 Other psychoactive substance dependence, uncomplicated; Z79.899 Other long term (current) drug therapy
CPT/HCPCS: 36415; 80178; 82040; 82247; 82310; 82374; 82435; 82565; 82947; 84075; 84132; 84155; 84295; 84450; 84460; 84520; 85025

== ENCOUNTER → 2018-12-07 | Outpatient (CLI) | payer MEDICAID ==
[2018-12-07 14:31] LABS: PLATELET COUNT, AUTOMATED 211 K/uL (150-450)
[2018-12-07 14:47] LABS: LDL CHOLESTEROL 78 mg/dl
== END ==
LOC: LAB 14:07
PROVIDERS: ATTEND Nurse Practitioner Family
DX: F31.2 Bipolar disorder, current episode manic severe with psychotic features (principal); F19.20 Other psychoactive substance dependence, uncomplicated; Z79.899 Other long term (current) drug therapy
CPT/HCPCS: 36415; 80178; 82040; 82247; 82310; 82374; 82435; 82465; 82565; 82947; 83036; 83718; 84075; 84132; 84155; 84295; 84443; 84450; 84460; 84478; 84520; 85025

== ENCOUNTER 2018-12-12 15:39 | Emergency (ER) | payer MEDICAID ==
[~2018-12-12 15:39] MED LIST changes: -ARIP20TA11; -LITH300T18 PO
[2018-12-12 15:45] VITALS: BP 112/69
--- NOTE | 2018-12-12 15:52 | ER Report ---
History and Physical Time Seen By MD: 15:46 HPI/ROS CHIEF COMPLAINT: arm pain when i lie flat HISTORY OF PRESENT ILLNESS: Pt lives at [facility]. Today she told the nurse at the facility that she has been having pain down both of her arms whenever she lays down flat. IF she sits up the pain goes away. No pain with walking. PT denies any trauma. States it has been happening for a month. Nurse took her to urgent care who did an ekg and blood work up. PTs blood levels were normal but pt was found to have a heart rate in the 30s when she laid down flat for the ekg. When she is up and walking her heart rate goes up to the 50s-60s. Dr. Peterson from urgent care sent her here for the severe bradycardia. pt denies chest pain or sob. PT denies hx of neck issues or cardiac issues. PT is on abilify and lithium which can cause bradycardia. pts has been on both medications for a year. REVIEW OF SYSTEMS: Constitutional: No fever, no chills. Eyes: No discharge. ENT: No sore throat. Cardiovascular: No chest pain, no palpitations. Respiratory: No cough, no shortness of breath. Gastrointestinal: No abdominal pain, no vomiting. Genitourinary: No hematuria. Musculoskeletal: No back pain, + arm pain Skin: No rashes. Neurological: No headache. Allergies: Coded Allergies: No Known Drug Allergies (Unverified , 12/12/18) Home Meds Reported Medications Aripiprazole (ABILIFY) 20 Mg Tablet 12/12/18 Levothyroxine Sodium (SYNTHROID) 88 Mcg Tablet, 25 MCG PO QDAY 03/30/18 [place] Carbonate (LITHIUM CARBONATE) 600 Mg Capsule, 600 MG PO QAM, CAPSULE 12/31/17 [place] Carbonate (LITHIUM CARBONATE) 600 Mg Capsule, 600 MG PO QHS, CAPSULE TAKE AT 1900 HRS. 12/31/17 Discontinued Scripts Amoxicillin/Pot Clav 875-125 Mg Tab (AUGMENTIN 875-125 TABLET) 1 Each Tablet, 1 TAB PO Q12H, #20 TAB Prov:ERICH BARNETT MD 05/18/18 Past Medical/Surgical History Pmhx; suicide attempt, anxieyt, hepatiits, depression, hypothyroid PShx: colonscopy and egd Hx Smoking: Yes Smoking Status: Current: Every Day Smoker, Heavy Tobacco Smoker Exposure to Second Hand Smoke?: Yes Hx Substance Use Disorder: Yes (POT) Hx Alcohol Use: Yes Constitutional Vital Sign - Last 24 Hours 12/12/18 12/12/18 12/12/18 12/12/18 15:44 15:44 15:45 15:49 Temp 97.5 Pulse 56 55 60 Resp 16 12 B/P (MAP) 112/69 112/69 (83) Pulse Ox 95 96 96 12/12/18 12/12/18 12/12/18 12/12/18 15:54 15:59 16:04 16:09 Pulse 52 50 50 47 Resp 16 11 15 11 Pulse Ox 95 94 93 92 12/12/18 12/12/18 12/12/18 12/12/18 16:24 16:29 16:44 16:49 Pulse 51 48 47 Resp 8 13 11 17 Physical Exam General Appearance: The patient is alert, has no immediate need for airway protection and no signs of toxicity. Eyes: Pupils equal and round no pallor or injection, EOMI ENT: no pharyngeal erythema or exudates, Mucous membranes are moist, TM are nl b/l Respiratory: There are no retractions, lungs are clear to auscultation. Cardiovascular: Regular rate and rhythm. pulses are equal and symmetrical Gastrointestinal: Abdomen is soft and non tender, no masses, bowel sounds normal, no guarding, no rigidity or rebound Neurological: Cranial nerves II-XII grossly intact, no sensory or motor loss Skin: Warm and dry, no rashes. Musculoskeletal: Neck is supple non tender, no vertebral tenderness Extremities are non tender, nonswollen and have full range of motion. DIFFERENTIAL DIAGNOSIS: After history and physical exam differential diagnosis was considered for adverse affect from medication, cervical radiculopathy Medical Decision Making ED Course/Re-evaluation ED Course Pt told me her psychatrist is in [place], Justice Zaragoza. PT does not have a trading manager. PT just had blood work completed at the urgent care. will go off that blood work and speak to cardiology. 12/12/2018 4:04:39 pm Page out to cardiology in [place] to review the case. 12/12/2018 4:22:[address] case with Dr. Person, trading manager at [place]. He did not feel the bradycardia was causing the arm pain. Since pt is not dizzy, passing out or having chest pain he felt she is safe to go home. He took her information so that he can arrange ot see her in clinic. He also asked for her ekgs to be faxed over to their office. 12/12/2018 4:39:03 pm Attempting to get in touch with Dr. Zaragoza, [phone] to see if he wants to adjust her lithium levels. 12/12/2018 5:01:[address] Zaragoza, he recommended we decrease her lithium to 900mg QHS instead of carri 1200mg QHS that she normally takes. He will follow her from there. I did discuss her tsh level on 0.[address] Zaragoza. He was aware since he was the one who ordered it on 12/07. He adjusted her synthroid from 50mcg to 25mcg a few days ago due to that level. I let him know she has a new level pending today. He states he will follow the level. 12/12/2018 5:12:[address] Person who recommend we place a holter monitor on patient. Non available today but has an appt for one tomorrow at 10am to be placed for 48 hours. PT feels comfortable going home. I did discuss that she may need MRI of cervical spine to look closer at her neck and arm pain. Pt states she can do that at a later time and would like to go. Decision to Disposition Date: Dec 12, 2018 Decision to Disposition Time: 17:14 Depart Departure Latest Vital Signs Vital Signs Date Time Temp Pulse Resp B/P (MAP) Pulse Ox O2 Delivery O2 Flow Rate FiO2 12/12/18 16:49 17 12/12/18 16:44 47 12/12/18 16:09 92 12/12/18 15:45 112/69 (83) 12/12/18 15:44 97.5 Impression: Primary Impression: Bradycardia Additional Impression: Cervical radiculopathy Condition: Condition Unchanged Disposition: HOME OR SELF-CARE Referrals: ERICH BARNETT MD (PCP) JUSTICE ZARAGOZAP, PMHNP DIONNE PERSNO MD trading manager for follow up New Scripts [place] Carbonate (LITHIUM CARBONATE) 300 Mg Tablet 900 MG PO QHS, #90 TAB Prov: CHAYITO MANCIA DO 12/12/18 Patient Instructions: Bradycardia (ED), Cervical Radiculopathy (ED) Additional Instructions: Your heart rate was found to be low. This can be due to your lithium. I spoke with Dr. Zaraogza and he would like to change your lithium to 900mg at night instead fo 1200mg which you currently take. We did send a tsh level today but it will not be back until tomorrow. You have an order for a holter monitor to be placed tomorrow at 10am at the hospital. Please return for your holter. Follow up with trading manager. Your cervical spine did show some degenerative disease. This could be causing some of your arm pain. Recommend you follow up with your family doctor for an out patient MRI to look closer at your nerves. Problem Qualifiers CHAYITO MANCIA DO Dec 12, 2018 15:52
[2018-12-12] MEDS ORDERED: ARIP20TA11 (15:57)
--- NOTE | 2018-12-12 16:38 | EKG ---
FACILITY: [facility] PATIENT NAME: ALYSHA BOSS : [id number] MR: [id number] V: [id number] EXAM DATE: ORDERING PHYSICIAN: CHAYITO MANCIA TECHNOLOGIST: Test Reason : Slow heart rate Blood Pressure : / mmHG Vent. Rate : 047 BPM Atrial Rate : 047 BPM P-R Int : 168 ms QRS Dur : 080 ms QT Int : 444 ms P-R-T Axes : 034 063 051 degrees QTc Int : 392 ms Marked sinus bradycardia Nonspecific ST and T wave abnormality Abnormal ECG Confirmed by LIV SETHI ([id number]) on 12/12/2018 6:04:25 PM Referred By: Confirmed By:LIV SETHI
--- NOTE | 2018-12-12 16:46 | RADIOLOGY IMAGING REPORT ---
FACILITY: [facility] PATIENT NAME: Cookie Kate : 1965 MR: [id number] V: [id number] EXAM DATE: ORDERING PHYSICIAN: CHAYITO MANCIA TECHNOLOGIST: Location: [facility] Patient: Cookie Kate : 1965 Visit/Account:[id number] Date of Sevice: 12/12/2018 Exam type: 3 views cervical spine History: pain down both arms Comparison: None. Findings: There is no acute fracture the cervical spine. Degenerative changes are noted at C5-6 with some facet arthropathy. AP and facet alignment is normal. Prevertebral soft tissues are unremarkable. Lung apices are also normal. IMPRESSION: 1. Degenerative changes in the cervical spine but no acute osseous abnormality Report Dictated By: Greg Mejia MD at 12/12/2018 4:42 PM Report E-Signed By: Greg Mejia MD at 12/12/2018 4:43 PM WSN:[id number]
[2018-12-12] MEDS ORDERED: LITH300T18 PO (17:16)
== END 2018-12-12 17:29 | disposition home or self-care (01) ==
LOC: ER 15:55
DX: R00.1 Bradycardia, unspecified (principal); M54.12 Radiculopathy, cervical region; F17.210 Nicotine dependence, cigarettes, uncomplicated
CPT/HCPCS: 72040; 93005; 99284

== ENCOUNTER → 2018-12-12 | Outpatient (REF) | payer MEDICAID ==
[~2018-12-12] MED LIST changes: +ARIP20TA11; +LITH300T18 PO
[2018-12-12 14:03] LABS: PLATELET COUNT, AUTOMATED 231 K/uL (150-450)
== END ==
PROVIDERS: ATTEND Family Medicine
DX: R07.9 Chest pain, unspecified (principal)
CPT/HCPCS: 80178; 82040; 82247; 82310; 82374; 82435; 82565; 82947; 83880; 84075; 84132; 84155; 84295; 84443; 84450; 84460; 84484; 84520; 85025; 85379

== ENCOUNTER → 2018-12-13 | Outpatient (CLI) | payer MEDICAID ==
[~2018-12-13] MED LIST changes: +ARIP20TA11; +LITH300T18 PO
--- NOTE | 2018-12-15 19:52 | RT HOLTER TEST ---
FACILITY: [facility] - [place] PATIENT NAME: ALYSHA BOSS : [id number] MR: [id number]: [id number] EXAM DATE: ORDERING PHYSICIAN: CHAYITO MANCIA TECHNOLOGIST: ADELITA Hook-up date: 2018-12-13 09:53:00 Duration: 47:59:00 Test Indications: weakness and bradycardia Medications: [id number] QRS complexes 13 Ventricular ectopics which represent <1 % of total QRS comp. 59 Supraventricular ectopics which represent <1 % of total QRS comp. * Paced QRS complexes which represent % of total QRS comp. VENTRICULAR ECTOPY 13 Isolated 0 Bigeminal Cycles 0 Couplets 0 Runs 0 Beats in Runs * Beats LONGEST at * BPM at :: -- * Beats FASTEST at * BPM at :: -- SUPRAVENTRICULAR ECTOPY 29 Isolated 1 Couplets 3 Runs 28 Beats in Runs 11 Beats LONGEST at 86 BPM at 05:03:21 2018-12-14 7 Beats FASTEST at 152 BPM at 08:13:58 2018-12-15 HEART RATES 30 MIN at 05:09:46 2018-12-15 64 AVG 152 MAX at 08:14:00 2018-12-15 LONGEST RR 2.136 secs at 05:09:40 2018-12-15 S-T LEVELS Channel 1 -12.800 mm MIN at 09:53:00 2018-12-13 -12.800 mm MAX at 09:53:00 2018-12-13 Channel 2 -12.800 mm MIN at 09:53:00 2018-12-13 -12.800 mm MAX at 09:53:00 2018-12-13 Channel 3 -12.800 mm MIN at 09:53:00 2018-12-13 -12.800 mm MAX at 09:53:00 2018-12-13 Study dominated by sinus rhythm. Episodes of bradycardia and marked bradycardia to 38BPM. Infrequent PAC occuring in runs up to 11 beats. Likely positive holter monitor. Confirmed by Elton López ([id number]) on 12/15/2018 7:51:59 PM Referred By: Overread By: Elton Tran
== END ==
LOC: RESP 07:17
PROVIDERS: ATTEND Emergency Medicine
DX: R53.1 Weakness (principal); R00.1 Bradycardia, unspecified
CPT/HCPCS: 93225

== ENCOUNTER → 2018-12-28 | Outpatient (CLI) | payer MEDICAID | LOC: LAB 15:05 | PROVIDERS: ATTEND Nurse Practitioner Family | DX: F31.2 Bipolar disorder, current episode manic severe with psychotic features (principal); Z79.899 Other long term (current) drug therapy | CPT/HCPCS: 36415; 80178; 82040; 82247; 82310; 82374; 82435; 82565; 82947; 84075; 84132; 84155; 84295; 84439; 84443; 84450; 84460; 84481; 84520 ==

== ENCOUNTER → 2019-03-30 | Outpatient (CLI) | payer MEDICAID ==
[~2019-03-30] MED LIST changes: +LEVO25TA61 PO
[2019-03-30 13:59] LABS: PLATELET COUNT, AUTOMATED 209 K/uL (150-450)
== END ==
LOC: LAB 13:37
PROVIDERS: ATTEND Internal Medicine
DX: B19.20 Unspecified viral hepatitis C without hepatic coma (principal); F25.0 Schizoaffective disorder, bipolar type; E03.9 Hypothyroidism, unspecified
CPT/HCPCS: 36415; 82040; 82247; 82310; 82374; 82435; 82565; 82947; 84075; 84132; 84155; 84295; 84439; 84443; 84450; 84460; 84481; 84520; 85025